=== PATIENT | male | born 1945 | race Hispanic/Latino ===

== ENCOUNTER 2019-09-08 11:59 | Inpatient (IN) | payer OTHER ==
[~2019-09-08] VITALS: Ht 170.2 cm; Wt 88.5 kg
[2019-09-08] MEDS ORDERED: SODIUM CHLORIDE 0.9% 1000ML 1,000 ML IV STA ×3 (12:07→13:04)
[2019-09-08 12:40] LABS: BASOPHILS % 0.1 % (0.0-1.0); HEMATOCRIT 37.1 % (38.2-49.6); HEMOGLOBIN 12.5 g/dL (14.0-18.0); LYMPHOCYTES # (AUTO) 0.7 (1.0-3.2); LYMPHOCYTES % 5.2 % (18.0-39.1); MEAN CORPUSCULAR HEMOGLOBIN 30.1 pg (28-32); MEAN CORPUSCULAR HGB CONC 33.7 g/dL (31-35); MEAN CORPUSCULAR VOLUME 89.4 fL (81-99); MONOCYTES # (AUTO) 0.3 (0.2-0.8); MONOCYTES % 1.9 % (4.4-11.3); NEUTROPHILS # (AUTO) 12.8 (2.1-6.9); NEUTROPHILS % 91.4 % (38.7-80.0); PLATELET COUNT 262 x10e3/uL (140-360); RED BLOOD COUNT 4.15 x10e6/uL (4.3-5.7)
[2019-09-08] MEDS: CEFTRIAXONE SOD 1 GM/NS 50 ML 50 ML IV SCH (12:54)
[2019-09-08 12:56] LABS: INR 0.96; PROTHROMBIN TIME 13.4 seconds (11.9-14.5)
[2019-09-08 12:57] LABS: PARTIAL THROMBOPLASTIN TIME 27.2 seconds (23.8-35.5)
[2019-09-08] MEDS ORDERED: SODIUM CHLORIDE 0.9% 1000ML 0 ML ONE (12:57)
[2019-09-08 13:03] LABS: ALANINE AMINOTRANSFERASE 30 IU/L (0-55); ALBUMIN 2.8 g/dL (3.5-5.0); ALBUMIN/GLOBULIN RATIO 0.6 (0.8-2.0); ALKALINE PHOSPHATASE 61 IU/L (40-150); ANION GAP 20.5 mmol/L (8-16); BLOOD UREA NITROGEN 51 mg/dL (7-26); BUN/CREATININE RATIO 25 (6-25); CALCIUM 9.4 mg/dL (8.4-10.2); CARBON DIOXIDE 19 mmol/L (22-29); CHLORIDE 99 mmol/L (98-107); CREATINE KINASE 60 IU/L (30-200); CREATININE, SERUM 2.04 mg/dL (0.72-1.25); EST GLOMERULAR FILTRATION RATE 32 ML/MIN (60-); POTASSIUM 4.5 mmol/L (3.5-5.1); SODIUM 134 mmol/L (136-145)
[2019-09-08 13:04] LABS: GLUCOSE 422 mg/dL (74-118)
[2019-09-08] MEDS ORDERED: INSULIN REGULAR, HUMAN 100 UNIT/1 ML 3ML VIAL IV ONE (13:15)
[2019-09-08] MEDS: AZITHROMYCIN 500MG/NS 250 ML 250 ML IV SCH (13:20)
--- NOTE | 2019-09-08 14:04 | Diagnostic Imaging Report ---
EXAMINATION: CHEST SINGLE (PORTABLE) INDICATION: COUGH SOB COMPARISON: None FINDINGS: TUBES and LINES: None. LUNGS: Lungs are well inflated. There are patchy bibasilar opacities. No evidence of pulmonary edema. PLEURA: No pleural effusion or pneumothorax. HEART AND MEDIASTINUM: The cardiomediastinal silhouette is unremarkable. There are atherosclerotic calcifications within the aorta. BONES AND SOFT TISSUES: No acute osseous lesion. Soft tissues are unremarkable. UPPER ABDOMEN: No free air under the diaphragm. IMPRESSION: Patchy opacities in the lower lung zones, which may represent pneumonia in the setting of cough. Recommend follow-up chest radiograph in 6-8 weeks to assess for resolution. Signed by: Dr. Barbara Oneal MD on 09/08/2019 2:01 PM
--- NOTE | 2019-09-08 14:25 | NUR ---
repeat glucose 289.
[2019-09-08] MEDS ORDERED: PIOGLITAZONE HC45 MG PO (14:59)
[2019-09-08] MEDS ORDERED: GLIMEPIRIDE2 MG PO (14:59)
[2019-09-08] MEDS ORDERED: LOSARTAN POTAS100 MG PO (14:59)
[2019-09-08] MEDS ORDERED: HYDROXYCHLOROQ200 MG PO (14:59)
[2019-09-08] MEDS ORDERED: OMEPRAZOLE20 MG PO (14:59)
[2019-09-08] MEDS ORDERED: ATORVASTATIN CA10 MG PO (14:59)
[2019-09-08] MEDS ORDERED: ALLOPURINOL100 MG PO (14:59)
[2019-09-08] MEDS ORDERED: FINASTERIDE5 MG PO (14:59)
[2019-09-08] MEDS ORDERED: GABAPENTIN300 MG PO (14:59)
[2019-09-08] MEDS ORDERED: ASPIR 8181 MG PO (14:59)
[2019-09-08] MEDS ORDERED: SODIUM CHLORIDE 0.9% 500ML 500 ML IV ONE (16:15)
[2019-09-08] MEDS ORDERED: SODIUM CHLORIDE 0.9% 1000ML 1,000 ML IV SCH (16:15)
--- NOTE | 2019-09-08 16:28 | Emergency Department Note ---
History of Present Illnes History of Present Illness Chief Complaint: COVID PUI History of Present Illness This is a 74 year old male Per patient and EMS patient has had a cough for 1 week, patient states that he was diagnosed with pharangitis a few days ago by his PCP and given abx, patient states that he has had no improvement in symptoms. 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 Any updates have been documented here. Past Medical History Recent Fever: No Clinical Suspicion of Infectio: No New/Unexplained Change in Ment: No Past Medical History: Hypertension, Diabetes, GERD, Hyperlipedemia Other Medical History: NEUROPATHY GOUT Past Surgical History: None Other Surgery: NONE Social History Smoking Cessation: Never Smoker Counseling Performed: No Alcohol Use: None Any Illegal Drug Use: No TB Exposure/Symptoms: No Physically hurt or threatened: No Family History Family history of heart diseas: No Other Last Tetanus: UNKNOWN Any Pre-Existing Lines (PICC,: No Is patient up to date on immun: No Last Flu: NO Last Pneumovax: NO Review of Systems Review of Systems Constitutional: Reports chills, Reports fever EENTM: Reports no symptoms Cardiovascular: Reports no symptoms Respiratory: Reports cough, Reports dyspnea Gastrointestinal: Reports no symptoms Genitourinary: Reports no symptoms Musculoskeletal: Reports no symptoms Integumentary: Reports no symptoms Neurological: Reports no symptoms Psychological: Reports no symptoms Endocrine: Reports no symptoms Hematological/Lymphatic: Reports no symptoms Physical Exam Related Data Allergies: Coded Allergies: No Known Allergies (Unverified , 09/08/19) Triage Vital Signs Vital Signs Date Time Temp Pulse Resp B/P (MAP) Pulse Ox O2 Delivery O2 Flow Rate FiO2 09/08/19 12:32 98.2 87 24 140/84 93 Vital signs reviewed: Yes (O2 SAT 93% ON RA) Physical Exam CONSTITUTIONAL Constitutional: Present well-developed, Present well-nourished HENT HENT: Present normocephalic, Present atraumatic, Present oropharynx clear/moist, Present nose normal HENT L/R: Present left ext ear normal, Present right ext ear normal EYES Eyes: Reports PERRL, Reports conjunctivae normal NECK Neck: Present ROM normal PULMONARY Pulmonary: Present other (DECR BREATH SOUNDS THOUGHOUT) CARDIOVASCULAR Cardiovascular: Present regular rhythm, Present heart sounds normal, Present capillary refill normal, Present normal rate GASTROINTESTINAL Abdominal: Present soft, Present nontender, Present bowel sounds normal GENITOURINARY Genitourinary: Present exam deferred SKIN Skin: Present warm, Present dry MUSCULOSKELETAL Musculoskeletal: Present ROM normal NEUROLOGICAL Neurological: Present alert, Present oriented x 3, Present no gross motor or sensory deficits PSYCHOLOGICAL Psychological: Present mood/affect normal, Present judgement normal Results Laboratory Result Diagram: 09/08/19 1225 09/08/19 1225 Laboratory Laboratory Tests Test 09/08/19 14:20 09/08/19 14:17 09/08/19 12:25 Lactic Acid Level 2.9 mmol/L (0.5-2.0) 3.9 mmol/L (0.5-2.0) Bedside Glucose 289 mg/dL (70-120) White Blood Count 13.97 x10e3/uL (4.8-10.8) Red Blood Count 4.15 x10e6/uL (4.3-5.7) Hemoglobin 12.5 g/dL (14.0-18.0) Hematocrit 37.1 % (38.2-49.6) Mean Corpuscular Volume 89.4 fL (81-99) Mean Corpuscular Hemoglobin 30.1 pg (28-32) Mean Corpuscular Hemoglobin Concent 33.7 g/dL (31-35) Red Cell Distribution Width 13.0 % (11.7-14.4) Platelet Count 262 x10e3/uL (140-360) Neutrophils (%) (Auto) 91.4 % (38.7-80.0) Lymphocytes (%) (Auto) 5.2 % (18.0-39.1) Monocytes (%) (Auto) 1.9 % (4.4-11.3) Eosinophils (%) (Auto) 0.0 % (0.0-6.0) Basophils (%) (Auto) 0.1 % (0.0-1.0) Neutrophils # (Auto) 12.8 (2.1-6.9) Lymphocytes # (Auto) 0.7 (1.0-3.2) Monocytes # (Auto) 0.3 (0.2-0.8) Eosinophils # (Auto) 0.0 (0.0-0.4) Basophils # (Auto) 0.0 (0.0-0.1) Absolute Immature Granulocyte (auto 0.19 x10e3/uL (0-0.1) Prothrombin Time 13.4 seconds (11.9-14.5) Prothromb Time International Ratio 0.96 Activated Partial Thromboplast Time 27.2 seconds (23.8-35.5) Sodium Level 134 mmol/L (136-145) Potassium Level 4.5 mmol/L (3.5-5.1) Chloride Level 99 mmol/L (98-107) Carbon Dioxide Level 19 mmol/L (22-29) Anion Gap 20.5 mmol/L (8-16) Blood Urea Nitrogen 51 mg/dL (7-26) Creatinine 2.04 mg/dL (0.72-1.25) Estimat Glomerular Filtration Rate 32 ML/MIN (60-) BUN/Creatinine Ratio 25 (6-25) Glucose Level 422 mg/dL (74-118) Calcium Level 9.4 mg/dL (8.4-10.2) Total Bilirubin 0.5 mg/dL (0.2-1.2) Aspartate Amino Transf (AST/SGOT) 31 IU/L (5-34) Alanine Aminotransferase (ALT/SGPT) 30 IU/L (0-55) Alkaline Phosphatase 61 IU/L (40-150) Creatine Kinase 60 IU/L (30-200) Creatine Kinase MB 0.90 ng/mL (0-5.0) Troponin I < 0.001 ng/mL (0-0.300) B-Type Natriuretic Peptide 91.0 pg/mL (0-100) Total Protein 7.7 g/dL (6.5-8.1) Albumin 2.8 g/dL (3.5-5.0) Globulin 4.9 g/dL (2.3-3.5) Albumin/Globulin Ratio 0.6 (0.8-2.0) Lab results reviewed: Yes Imaging Imaging results reviewed: Yes Impressions Procedure: [id number] DX/CHEST SINGLE (PORTABLE) Exam Date: 09/08/19 Exam Time: 1300 REPORT STATUS: Signed EXAMINATION: CHEST SINGLE (PORTABLE) INDICATION: COUGH SOB COMPARISON: None FINDINGS: TUBES and LINES: None. LUNGS: Lungs are well inflated. There are patchy bibasilar opacities. No evidence of pulmonary edema. PLEURA: No pleural effusion or pneumothorax. HEART AND MEDIASTINUM: The cardiomediastinal silhouette is unremarkable. There are atherosclerotic calcifications within the aorta. BONES AND SOFT TISSUES: No acute osseous lesion. Soft tissues are unremarkable. UPPER ABDOMEN: No free air under the diaphragm. IMPRESSION: Patchy opacities in the lower lung zones, which may represent pneumonia in the setting of cough. Recommend follow-up chest radiograph in 6-8 weeks to assess for resolution. Signed by: Dr. Barbara Oneal MD on 09/08/2019 2:01 PM Procedures 12 Lead ECG Interpretation ECG Interpretation : ECG: ECG 1 Materials Specialist: Interpreted by ED physician Date: Sep 08, 2019 Time: 12:15 Rhythm: sinus rhythm Rate: normal (86) QRS axis: normal ST segments normal: Yes T waves normal: Yes Clinical Impression: normal ECG ABG Interpretation ABG Results: ABG 1 (pH 7.401, pCO2 30, pO2 91 on 3L NC, HCO3 18.5) Interpretation: metabolic acidosis (and respiratory alkalosis) Critical Care Time Total Critical Care Time (min): 35 Critical care time exclusive o: separately billable procedures Critcal care necessary due to: metabolic failure, sepsis Critcal care time spent by me: discussion w consultants, evaluation patient response to tx, examination of patient, order/perform tx or interventions, order/review laboratory studies, order/review radiographic studies, re- evaluation of patient condition Assessment & Plan Medical Decision Making MDM CHECK CBC, CHEM'S, ECG, CARDIACS, BNP, UA/CX, BLOOD CX'S, LACTIC, COVID SWAB - R/O SEPSIS, PNEUMONIA, COVID, STEMI/NSTEMI, ELECTROLYTE ABNL Reassessment Reassessment INITIAL LACTIC AT 1305 = 3.9, SEVERE SEPSIS WITH PULMONARY SOURCE Patient presented during the COVID-19 virus pandemic and has a clinical picture consistent with a COVID-19 source for sepsis. Thus, patient was treated for suspected viral sepsis rather than bacterial sepsis although I did give Rocephin/Azithromycin initially. Given the potential for ARDS and present suggestions of early data from COVID treatment in other areas, fluids were given sparingly and the SEP-1 guidelines were deviated from. For consideration of other sources, blood and urine cultures, lactic acid and antibiotics were ordered. Will continue to monitor blood pressure and adjust fluid resuscitation accordingly. I spoke with Dr Henry for admission. Dr Leyva and [facility] Assessment & Plan Final Impression: (1) Sepsis (2) Pneumonia due to COVID-19 virus (3) Hyperglycemia Depart Disposition: ADMITTED Last Vital Signs Date Time Temp Pulse Resp B/P (MAP) Pulse Ox O2 Delivery O2 Flow Rate FiO2 09/08/19 16:01 68 30 154/79 98 09/08/19 12:37 98.5 Home Meds Reported Medications Hydroxychloroquine Sulfate (HYDROXYCHLOROQUINE SULFATE) 200 Mg Tablet, 200 MG PO DAILY 09/08/19 Atorvastatin Calcium (ATORVASTATIN CALCIUM) 10 Mg Tablet, 10 MG PO 2100, #30 TAB 09/08/19 Aspirin (ASPIR 81) 81 Mg Tablet.dr, 81 MG PO DAILY 09/08/19 Losartan Potassium (LOSARTAN POTASSIUM) 100 Mg Tablet, 100 MG PO DAILY, TAB 09/08/19 Omeprazole (OMEPRAZOLE) 20 Mg Capsule.dr, 20 MG PO DAILY 09/08/19 Pioglitazone Hcl (PIOGLITAZONE HCL) 45 Mg Tablet, 45 MG PO DAILY, #30 TAB 09/08/19 Finasteride (FINASTERIDE) 5 Mg Tablet, 5 MG PO DAILY, #30 TAB 09/08/19 Allopurinol (ALLOPURINOL) 100 Mg Tablet, 100 MG PO DAILY, #30 TAB 09/08/19 Glimepiride (GLIMEPIRIDE) 2 Mg Tablet, 4 MG PO, TAB 09/08/19 Gabapentin (GABAPENTIN) 300 Mg Capsule, 300 MG PO BID, #60 CAP 09/08/19 Medications in the ED Sodium Chloride 1,000 ml @ 0 mls/hr Q0M STAT IV Last administered on 09/08/19at 12:45; Admin Dose 999 MLS/HR; Start 09/08/19 at 12:07; Stop 09/08/19 at 12:12; Status DC Ceftriaxone Sodium 50 ml @ 100 mls/hr Q24H IV Last administered on 09/08/19at 12:54; Admin Dose 100 MLS/HR; Start 09/08/19 at 12:15; Stop 09/15/19 at 12:14 Azithromycin 250 ml @ 200 mls/hr DAILY IV Last administered on 09/08/19at 13:20; Admin Dose 200 MLS/HR; Start 09/08/19 at 12:15; Stop 09/15/19 at 12:14 Sodium Chloride 0 ml @ ud STK-MED ONCE .ROUTE ; Start 09/08/19 at 12:57; Stop 09/08/19 at 12:51; Status DC Sodium Chloride 1,000 ml @ 0 mls/hr Q0M STAT IV Last administered on 09/08/19at 13:35; Admin Dose 999 MLS/HR; Start 09/08/19 at 13:04; Stop 09/08/19 at 13:06; Status DC Insulin Human Regular 10 unit ONCE ONCE IV Last administered on 09/08/19at 13:39; Admin Dose 10 UNIT; Start 09/08/19 at 13:15; Stop 09/08/19 at 13:16; Status DC Sodium Chloride 1,000 ml @ 0 mls/hr Q0M STAT IV Last administered on 09/08/19at 13:37; Admin Dose 999 MLS/HR; Start 09/08/19 at 13:04; Stop 09/08/19 at 13:06; Status DC OJ BORJAS MD Sep 08, 2019 16:28
[2019-09-08 16:37] LABS: CLARITY,URINE CLEAR (CLEAR); COLOR,URINE YELLOW (YELLOW); LEUKOCYTE ESTERASE ,URINE NEGATIVE (NEGATIVE); NITRITE,URINE NEGATIVE (NEGATIVE); PROTEIN,URINE DIPSTICK 1+ (NEGATIVE)
[2019-09-08 16:38] LABS: BILIRUBIN,URINE NEGATIVE (NEGATIVE); KETONES,URINE NEGATIVE (NEGATIVE); URINE UROBILINOGEN 0.2 mg/dL (0.2 - 1)
[2019-09-08 16:49] LABS: BACTERIA,URINE FEW /HPF; EPITHELIAL CELLS,URINE FEW /LPF
[2019-09-08 17:07] LABS: ABG HCO3 19 mmol/L (22-26); ABG PCO2 30 mmHg (35-45); ABG PO2 91 mmHg (80-105)
[2019-09-08] MEDS ORDERED: ALBUTEROL SULFATE HFA 8GM INHALATION AEROSOL INH PRN (17:15)
[2019-09-08] MEDS ORDERED: ONDANSETRON HCL INJ 2MG/ML 2ML 2 MG/ML VIAL IV PRN (17:15)
[2019-09-08] MEDS ORDERED: DEXTROSE 50% SYRINGE 50 ML IV PRN (17:15)
--- NOTE | 2019-09-08 18:30 | NUR ---
ARRIVED TO UNIT AT APPROXIMATELY 181. AAOX3. ACYANOTIC. RESTING IN BED. COUGHING SPELL NOTED WITH MODERATE AMOUNT OF CLEAR SPUTUM. CALL LIGHT IN REACH. SIDE RAILS UP X2. BED LOW AND LOCKED.
[2019-09-08 18:47] VITALS: BP 123/70
--- NOTE | 2019-09-08 19:45 | Consultation ---
DATE OF CONSULTATION: Pulmonary Critical Care Consultation CHIEF COMPLAINT: Cough and malaise. HISTORY OF PRESENT ILLNESS: The patient is a 74-year-old man. He has a history of xpy-rpikzcr-ardhhdkod diabetes and hypertension. He denies any prior respiratory problems. He does not have any prior heart disease. He reports malaise for the past 8 days. He also notes cough. He has shortness of breath when he coughs. He does not complain of any fevers. He had some loose stools, but does not have diarrhea. He has not been eating well. He came to the emergency department and was found to have bilateral infiltrates on his chest x-ray, suggestive of possible viral pneumonia. He also had an elevated glucose of 422 along with an elevated creatinine and a mixed respiratory alkalosis and anion gap acidosis. He received fluids and has noticed some improvement. PAST SURGICAL HISTORY: Noncontributory. PAST MEDICAL HISTORY: 1. Lqs-cvwncks-gseyoycyp diabetes. 2. Hypertension. SOCIAL HISTORY: The patient quit smoking many years ago. He quit drinking many years ago. ALLERGIES: THERE ARE NO KNOWN DRUG ALLERGIES. FAMILY HISTORY: Noncontributory. REVIEW OF SYSTEMS: He denies fevers. He does not have headache. He has no neck pain. He does report cough. He has some dyspnea especially when he coughs. He does not complain of chest pain. He did have some loose stools. He has no vomiting. PHYSICAL EXAMINATION: VITAL SIGNS: The patient is afebrile. The blood pressure is 123/70 and saturation is 93% on 4 L. HEENT: Shows no facial swelling or erythema. CARDIAC: Reveals regular rate and rhythm with normal S1 and S2. LUNGS: Auscultation of lungs reveals crackles at the bases. There is no wheezing. ABDOMEN: Soft and nontender. There is no rebound or guarding. EXTREMITIES: Shows no leg edema or calf tenderness. There is no cyanosis or clubbing. SKIN: Shows no rashes. NEUROLOGICAL: Shows no focal abnormalities. LABORATORY DATA: The BUN to creatinine ratio is 51 to 2.04, and the carbon dioxide is 19. Sodium is 134. Lactic acid was initially 3.9, but has improved to 2.1 with fluids. Albumin is 2.9. White blood cell count is 13.9 and the hemoglobin is 12.5. The platelet count is 262. Blood gas is 7.4, 30, 91, and 19. RADIOGRAPHIC DATA: Chest x-ray shows bilateral infiltrates, suggestive of viral pneumonia. IMPRESSION: 1. Viral pneumonia and COVID-19 infection. 2. Mixed respiratory alkalosis and metabolic acidosis. 3. Hyperglycemia. 4. Acute kidney injury. 5. Hypertension. PLAN: 1. Continue judicious use of IV fluids. 2. Repeat electrolytes this evening. 3. Antibiotics. 4. Lovenox. 5. Robitussin with codeine. 6. Hold off on dexamethasone for now because of the hyperglycemia and acidosis. 7. Case discussed with nursing, ER staff, and the patient. Barrett Martinez MD [facility]/MOD[facility] /[id number]
[2019-09-08 20:00] VITALS: BP 169/81
--- NOTE | 2019-09-08 20:30 | NUR ---
patient is a new admit. patient is awake and talking and resting in the bed. telemetry is attached. continues on O2 via the nasal cannula. denies pain or discomfort. bed is in lowest position and call light is within reach. will continue to monitor patient.
[2019-09-08] MEDS ORDERED: ATORVASTATIN 10 MG TAB PO SCH (21:00)
[2019-09-08] MEDS: INSULIN LISPRO 100 UNIT/1 ML 3ML VIAL SQ SCH (21:00)
[2019-09-08] MEDS: INSULIN GLARGINE 100 UNITS/ML VIAL SQ SCH (22:00)
[2019-09-08] MEDS: FAMOTIDINE 20 MG/2 ML VIAL IV SCH (22:26)
[2019-09-08] MEDS: ENOXAPARIN SOD INJ 40 MG/0.4 ML SYR SC SCH (22:26)
[2019-09-08 22:29] VITALS: BP 169/81
[2019-09-08 22:33] VITALS: BP 169/81
[2019-09-08] MEDS: GUAIFENESIN/CODEINE 10 ML CUP PO PRN (22:42)
--- NOTE | 2019-09-08 23:09 | NUR ---
received critical lab from pharmacy. patients lactic acids are 3.3. patients blood pressure is 192/86. Attending MD notified. No new orders received. will continue to monitor patient.
[2019-09-08] MEDS: GABAPENTIN 300 MG CAP PO SCH (23:23)
[2019-09-09] VITALS (7 sets, daily range): BP systolic 112–179; BP diastolic 70–82
[2019-09-09] MEDS: GABAPENTIN 300 MG CAP PO SCH ×2 (05:01→14:24)
[2019-09-09 05:07] LABS: BASOPHILS % 0.2 % (0.0-1.0); HEMATOCRIT 33.8 % (38.2-49.6); HEMOGLOBIN 11.1 g/dL (14.0-18.0); LYMPHOCYTES # (AUTO) 0.9 (1.0-3.2); LYMPHOCYTES % 7.4 % (18.0-39.1); MEAN CORPUSCULAR HEMOGLOBIN 29.5 pg (28-32); MEAN CORPUSCULAR HGB CONC 32.8 g/dL (31-35); MEAN CORPUSCULAR VOLUME 89.9 fL (81-99); MONOCYTES # (AUTO) 0.2 (0.2-0.8); MONOCYTES % 1.7 % (4.4-11.3); NEUTROPHILS # (AUTO) 10.6 (2.1-6.9); NEUTROPHILS % 88.9 % (38.7-80.0); PLATELET COUNT 227 x10e3/uL (140-360); RED BLOOD COUNT 3.76 x10e6/uL (4.3-5.7)
[2019-09-09 05:31] LABS: ALBUMIN 2.3 g/dL (3.5-5.0); ALBUMIN/GLOBULIN RATIO 0.5 (0.8-2.0); ANION GAP 14.1 mmol/L (8-16); CALCIUM 8.5 mg/dL (8.4-10.2); CREATININE, SERUM 1.43 mg/dL (0.72-1.25); POTASSIUM 4.1 mmol/L (3.5-5.1)
[2019-09-09 05:43] LABS: CREATINE KINASE 66 IU/L (30-200)
[2019-09-09] MEDS: INSULIN LISPRO 100 UNIT/1 ML 3ML VIAL SQ SCH ×7 (07:30→21:31)
--- NOTE | 2019-09-09 08:00 | NUR ---
pt desaturated to 77%, pt is on oxygen via nasal cannula at 4 liters. applied non-rebreather and pt's oxygen sat is at 100%
[2019-09-09] MEDS ORDERED: HYDRALAZINE HCL 20 MG/ML VIAL IV PRN (08:45)
[2019-09-09] MEDS ORDERED: PANTOPRAZOLE SOD 40 MG TABEC PO SCH (09:00)
[2019-09-09] MEDS ORDERED: GABAPENTIN 300 MG CAP PO SCH (09:00)
[2019-09-09] MEDS ORDERED: LOSARTAN POTASSIUM 100 MG TAB PO SCH (09:00)
[2019-09-09] MEDS ORDERED: HYDROXYCHLOROQUINE SULFATE 200 MG TAB PO SCH (09:00)
[2019-09-09] MEDS: GUAIFENESIN/CODEINE 10 ML CUP PO PRN ×3 (09:16→21:08)
[2019-09-09] MEDS: AMLODIPINE BESYLATE 10 MG TAB PO SCH (09:16)
[2019-09-09] MEDS: ASPIRIN 81 MG CHEW TAB PO SCH (09:16)
[2019-09-09] MEDS: AZITHROMYCIN 500MG/NS 250 ML 250 ML IV SCH (09:16)
[2019-09-09] MEDS: FAMOTIDINE 20 MG/2 ML VIAL IV SCH ×2 (09:16→21:30)
[2019-09-09] MEDS: ALLOPURINOL 100 MG TAB PO SCH (09:17)
[2019-09-09] MEDS: ENOXAPARIN SOD INJ 40 MG/0.4 ML SYR SC SCH ×2 (09:17→21:30)
[2019-09-09] MEDS: FINASTERIDE 5 MG TAB PO SCH (09:17)
[2019-09-09] MEDS ORDERED: SODIUM CHLORIDE 0.9% 250ML 250 ML ONE (11:42)
[2019-09-09] MEDS: CEFTRIAXONE SOD 1 GM/NS 50 ML 50 ML IV SCH (11:44)
--- NOTE | 2019-09-09 12:00 | NUR ---
ATTEMPTED 3 TIMES TO GET BLOOD FOR CARDIAC LABS. SECOND NURSE ATTEMPTED AND WAS NOT ABLE TO OBTAIN ENOUGH BLOOD.
[2019-09-09] MEDS: DEXAMETHASONE PHOS 4MG/ML 5ML MULTIDOSE VIAL IV SCH (12:32)
--- NOTE | 2019-09-09 12:38 | Consultation ---
DATE OF CONSULTATION: HISTORY OF PRESENT ILLNESS: Mr. Contreras is a 74-year-old gentleman, who comes in with cough, not feeling well. He has been sick for a few days. He does have history of diabetes mellitus. The patient apparently was diagnosed few days ago with COVID-19, but he is just not feeling well. He came in with shortness of breath. In the emergency room, he was evaluated. He was found to have an acute renal failure. His sodium 138, potassium 4.1 with a creatinine of 1.43. Lactic acid was 3.3 on admission. The patient is being admitted. He is on Plaquenil, Lovenox, Proscar, Norvasc, Pepcid, azithromycin, Neurontin, ceftriaxone, insulin, dextrose, and Zofran. The patient is currently lying in bed comfortable. PHYSICAL EXAMINATION: GENERAL: He is currently alert and oriented. Does not seem to be in acute distress. VITAL SIGNS: Stable, currently afebrile. HEENT: Not icteric. NECK: Supple. CHEST: Clear. HEART: S1 and S2. No S3, S4, or murmur. ABDOMEN: Soft. IMPRESSION: 1. COVID-19. 2. Superimposed bacterial pneumonia. 3. Diabetes mellitus. Continue with azithromycin for 3 days, Rocephin 5 days. He is currently on allopurinol, atorvastatin, amlodipine, Lovenox. I am not so sure why he is on hydroxychloroquine, would like to stop it for now. The patient is currently on non- rebreather. We will offer him remdesivir. He is aware that it is an investigational drug. Fact sheet was given to the patient. We will follow. MD DARIN Harrison/HOWARD /[id number]
[2019-09-09] MEDS ORDERED: REMDESIVIR 200MG/NS 100ML 200 MG IV ONE (14:00)
--- NOTE | 2019-09-09 15:34 | History and Physical ---
PRIMARY CARE PHYSICIAN: Dr. Jasiel Mcgee. CONSULTANTS: 1. Dr. Del Leyva. 2. Dr. Ruth Mott. CHIEF COMPLAINT: COVID-19 pneumonia. HISTORY OF PRESENT ILLNESS: The patient is a 74-year-old male with diabetes type 2, hypertension, presented to the emergency room with increasing shortness of breath. The patient has also increasing cough and fever as well. In the emergency room, the patient has complained of generalized body ache and pain. The patient stated that he has been coughing for one week. He was diagnosed with pharyngitis by his primary care physician and was given antibiotics, but he did not improve. The patient came to the hospital for evaluation. Here, the patient found to have COVID-19 pneumonia. Chest x-ray showed classic opacity of the bilateral lower lung lobe area. The patient is admitted for isolation and treatment. He did receive Decadron 10 mg IV one time and continue with IV q.6 hours. The patient is currently on non-rebreather. He is otherwise stable. PAST MEDICAL HISTORY: Hypertension, obesity, diabetes type 2, reflux, dyslipidemia, diabetic neuropathy, and gout. PAST SURGICAL HISTORY: Noncontributory. SOCIAL HISTORY: The patient lives with his family. He quit smoking many years ago. He quit drinking many years ago as well. No recreational drugs. ALLERGIES: NO KNOWN ALLERGIES. HOME MEDICATIONS: The patient is on, 1. Allopurinol. 2. Aspirin. 3. Lipitor. 4. Finasteride. 5. Gabapentin. 6. Amaryl. 7. Plaquenil. 8. Losartan. 9. Omeprazole. 10. Actos. PHYSICAL EXAMINATION: VITAL SIGNS: Temperature is 98, blood pressure 177/76, pulse rate is 63, and respirations 18. GENERAL: The patient is not in acute distress. He is on non-rebreather. He seems to be comfortable with cough. HEENT: Normocephalic and atraumatic. Anicteric. NECK: Supple grossly. There is no JVD. PULMONARY: Bilateral coarse at the bases. Upper airways are clear. He is on non-rebreather. Diminished breath sounds bilateral lung upper and lower lobes. CARDIOVASCULAR: Regular rate and rhythm. ABDOMEN: Obese. EXTREMITIES: No cyanosis or edema. NEUROLOGIC: No gross focal deficit. Moving all extremities, communicating. LABORATORY DATA: Serologies: COVID-19 PCR detected. Chemistry: Sodium is 134, potassium 4.5, chloride 99, bicarb is 19, BUN is 41, creatinine 1.5, and glucose 141, upon admission it was 422. Lactic acid is 2.9, 2.1 and 3.3 respectively. Fingerstick glucose pending this morning. Albumin is 2.3. WBC is 13.9, hemoglobin 12.5, hematocrit 37, and platelets 262. Urinalysis is clean. IMAGING: Chest x-ray showed patchy opacity in the lower lung zones. IMPRESSION: 1. Coronavirus disease-19 pneumonia, bilateral basilar infiltrate opacity. 2. Acute hypoxia secondary to coronavirus disease-19. 3. Baseline diabetes type 2. 4. Dyslipidemia. 5. Reflux. 6. Enlarged prostate. 7. Obesity. PLAN: Continue with protocol. Currently, the patient is on Decadron 6 mg IV daily. He is on azithromycin and Rocephin. He did receive multiple boluses of IV fluids in the emergency room. Blood pressures are elevated. Start the patient on Norvasc 10 mg daily. Hydralazine as needed. He is on aspirin, Lovenox 40 mg subcu q.12 hours, and Pepcid. Home medication, gabapentin decrease the dosing, finasteride, Humalog insulin sliding scale coverage. He will take also lispro 6 units before meal and Lantus 40 units at night. The patient was seen by critical care, Dr. Kal Leyva. Dr. Kamlesh Martinez covering for Dr. Leyva. Consultation with Dr. Mott. We will continue to monitor the patient closely at this time. He does have an inhaler if needed. The patient will be started anti-cough medication. He has Tessalluda Perles along with Javi SU as well. The patient's condition is stable, but guarding at this time. MD HELEN Juan/HOWARD /[id number]
[2019-09-09] MEDS ORDERED: ENOXAPARIN SOD INJ 40 MG/0.4 ML SYR SC SCH (17:00)
--- NOTE | 2019-09-09 17:59 | Progress Note ---
DATE: SUBJECTIVE: The patient had some desaturations this morning and had to be increased to 100% non-rebreather. He was started on remdesivir. PHYSICAL EXAMINATION: VITAL SIGNS: Blood pressure is 141/79 and pulse is 73, saturation 100%. HEENT: Shows no facial swelling or erythema. CARDIAC: Reveals regular rate and rhythm with normal S1, S2. LUNGS: Auscultation of lungs shows clear breath sounds bilaterally. There is no wheezing. ABDOMEN: Soft and nontender. There is no rebound or guarding. EXTREMITIES: Shows no leg edema or calf tenderness. There is no cyanosis or clubbing. SKIN: Shows no rashes. NEUROLOGICAL: Shows no focal abnormalities. LABORATORY DATA: White blood cell count is 11.9 and hemoglobin is 11.1. The platelet count is 227. The BUN to creatinine ratio is 41 to 1.43. The BUN to creatinine ratio is otherwise normal. The carbon dioxide is 19. The sodium is 138. The albumin is 2.3. IMPRESSION: 1. Acute respiratory failure. 2. Viral pneumonia and COVID-19 infection. 3. Diabetes. 4. Acute kidney injury. 5. Hypertension. PLAN: 1. The patient is now started on remdesivir. 2. Continue insulin. 3. Continue antibiotics. 4. Lovenox. 5. Dexamethasone. Barrett Martinez MD [facility] /[id number]
[2019-09-09] MEDS: INSULIN GLARGINE 100 UNITS/ML VIAL SQ SCH (21:31)
[2019-09-09] MEDS: GABAPENTIN 100 MG CAP PO SCH (22:52)
[2019-09-10] VITALS (7 sets, daily range): BP systolic 109–139; BP diastolic 56–82
[2019-09-10] MEDS: GUAIFENESIN/CODEINE 10 ML CUP PO PRN ×5 (01:47→22:45)
[2019-09-10] MEDS: GABAPENTIN 100 MG CAP PO SCH ×3 (05:50→22:45)
--- NOTE | 2019-09-10 06:59 | NUR ---
REPORT GIVEN TO DAYSHIFT NURSE. RESTING IN BED. NO SIGNS IV INFILTRATION. BED LOCKED AND IN LOW POSITION. CALL LIGHT WITHIN REACH.
[2019-09-10] MEDS: INSULIN LISPRO 100 UNIT/1 ML 3ML VIAL SQ SCH ×7 (07:30→20:27)
[2019-09-10] MEDS: ASPIRIN 81 MG CHEW TAB PO SCH (08:06)
[2019-09-10] MEDS: ALLOPURINOL 100 MG TAB PO SCH (08:06)
[2019-09-10] MEDS: FAMOTIDINE 20 MG/2 ML VIAL IV SCH ×2 (08:06→20:26)
[2019-09-10] MEDS: AMLODIPINE BESYLATE 10 MG TAB PO SCH (08:06)
[2019-09-10] MEDS: ENOXAPARIN SOD INJ 40 MG/0.4 ML SYR SC SCH ×2 (08:06→20:26)
[2019-09-10] MEDS: AZITHROMYCIN 500MG/NS 250 ML 250 ML IV SCH (08:06)
[2019-09-10] MEDS: FINASTERIDE 5 MG TAB PO SCH (08:06)
[2019-09-10] MEDS: DEXAMETHASONE PHOS 4MG/ML 5ML MULTIDOSE VIAL IV SCH (11:48)
[2019-09-10 12:28] LABS: BASOPHILS % 0.1 % (0.0-1.0); HEMOGLOBIN 11.9 g/dL (14.0-18.0); LYMPHOCYTES # (AUTO) 1.2 (1.0-3.2); LYMPHOCYTES % 8.5 % (18.0-39.1); MEAN CORPUSCULAR HEMOGLOBIN 30.4 pg (28-32); MEAN CORPUSCULAR VOLUME 89.3 fL (81-99); MONOCYTES # (AUTO) 0.3 (0.2-0.8); NEUTROPHILS % 88.2 % (38.7-80.0); PLATELET COUNT 215 x10e3/uL (140-360); RED BLOOD COUNT 3.92 x10e6/uL (4.3-5.7); RED CELL DISTRIBUTION WIDTH 13.2 % (11.7-14.4)
[2019-09-10 12:43] LABS: ANION GAP 12.9 mmol/L (8-16); CALCIUM 8.5 mg/dL (8.4-10.2); CREATININE, SERUM 1.52 mg/dL (0.72-1.25); POTASSIUM 3.9 mmol/L (3.5-5.1)
[2019-09-10] MEDS: CEFTRIAXONE SOD 1 GM/NS 50 ML 50 ML IV SCH (13:03)
[2019-09-10] MEDS: REMDESIVIR 100MG/NS 100ML 100 MG IV SCH (15:35)
--- NOTE | 2019-09-10 15:50 | Progress Note ---
DATE: SUBJECTIVE: The patient is seen and evaluated, available labs and notes reviewed. Discussed with the nurse. No new events. REVIEW OF SYSTEMS: Remains on non-rebreather, saturating at 95-100%. Clinically, no acute distress. Still complaining of shortness of breath, but he feels better with current non-rebreather type of oxygen. No nausea, vomiting, or chills. MEDICATIONS: Medication is reviewed. From ID point of view, the patient is on Rocephin, dexamethasone, and Zithromax. LABORATORY STUDIES: White count of 13.61, hemoglobin 11.9, and platelet 215. Sodium 133, potassium 3.9, and creatinine 1.52. Serology: Coronavirus disease PCR 2019, positive on 09/08/2019. Microbiology; blood culture, negative 48 hours. Urine culture, negative 48 hours. RADIOLOGY STUDIES: No new radiology study is available. PHYSICAL EXAMINATION: VITAL SIGNS: Temperature 97.5, pulse 73, respirations 24, and blood pressure 121/66. GENERAL: Alert and oriented, no acute distress. Obese with a BMI of 39.2. CV: S1-S2. CHEST: Equal expansion. Decreased breath sounds. No acute distress. ABDOMEN: Soft. No tender. HEENT: Moist. On non-rebreather. EXTREMITIES: Weak. ASSESSMENT AND PLAN: 1. Coronavirus disease-19. 2. Superimposed bacterial pneumonia. 3. Diabetes. 4. Obesity. 5. Neuropathy. Continue with the medications as mentioned above. Continue with the non-rebreather. Monitor the patient clinically. Follow with the labs. Discussed with Dr. Mott in details. Please refer to chart for more information. Dictated by Enrico Pearce PA-C (Al) Ruth Mott MD /MODL /[id number]
--- NOTE | 2019-09-10 17:05 | Progress Note ---
DATE: SUBJECTIVE: The patient is still requiring a non-rebreather. He is not complaining of dyspnea. He still has some cough. He has decreased appetite. His saturation is 95%. OBJECTIVE: HEENT: Shows no facial swelling or erythema. CARDIAC: Reveals regular rate and rhythm with normal S1, S2. LUNGS: Auscultation of lungs reveals crackles at the bases. There is no wheezing. ABDOMEN: Soft, nontender. There is no rebound or guarding. EXTREMITIES: Shows no leg edema or calf tenderness. There is no cyanosis, clubbing. SKIN: Shows no rashes. NEUROLOGICAL: Shows no focal abnormalities. LABORATORY DATA: White blood cell count is 13.6 and hemoglobin is 11.9. The platelet count is 215. BUN to creatinine ratio is 45 to 1.52. Other electrolytes are within normal limits. Albumin is 2.3. IMPRESSION: 1. Acute respiratory failure. 2. Viral pneumonia COVID-19 infection. 3. Acute kidney injury. 4. Diabetes. 5. Hypertension. PLAN: 1. Continue remdesivir. 2. Insulin as needed. 3. Complete antibiotics. 4. Dexamethasone. 5. Repeat chest x-ray tomorrow. 6. Repeat BUN, creatinine, and electrolytes tomorrow. Barrett Martinez MD [facility] /[id number]
--- NOTE | 2019-09-10 18:19 | Diagnostic Imaging Report ---
EXAMINATION: CHEST SINGLE (PORTABLE) INDICATION: ^resp failure ^[id number] ^1715 COMPARISON: 09/08/19. FINDINGS: TUBES and LINES: None. LUNGS: Increased multifocal patchy density particularly in the lower lobes. Diffuse prominence of the pulmonary vasculature. PLEURA: No pleural effusion or pneumothorax. HEART AND MEDIASTINUM: Cardiac size is mildly enlarged. There are atherosclerotic calcifications within the aorta. BONES AND SOFT TISSUES: No acute osseous lesion. Soft tissues are unremarkable. UPPER ABDOMEN: No free air under the diaphragm. IMPRESSION: Interval increase in patchy density bilaterally, which may represent pulmonary edema or multifocal infection in the proper clinical setting. Bilateral pulmonary venous congestion. Signed by: Dr. Daniel Hutton M.D. on 09/10/2019 6:15 PM
[2019-09-10] MEDS: INSULIN GLARGINE 100 UNITS/ML VIAL SQ SCH (20:27)
[2019-09-11] VITALS (8 sets, daily range): BP systolic 116–145; BP diastolic 66–76
[2019-09-11] MEDS: GUAIFENESIN/CODEINE 10 ML CUP PO PRN ×3 (02:40→21:53)
[2019-09-11 05:56] LABS: BASOPHILS % 0.1 % (0.0-1.0); HEMATOCRIT 39.3 % (38.2-49.6); HEMOGLOBIN 13.1 g/dL (14.0-18.0); LYMPHOCYTES # (AUTO) 1.3 (1.0-3.2); LYMPHOCYTES % 9.5 % (18.0-39.1); MEAN CORPUSCULAR HEMOGLOBIN 29.6 pg (28-32); MEAN CORPUSCULAR HGB CONC 33.3 g/dL (31-35); MEAN CORPUSCULAR VOLUME 88.9 fL (81-99); MONOCYTES # (AUTO) 0.2 (0.2-0.8); MONOCYTES % 1.6 % (4.4-11.3); NEUTROPHILS % 87.7 % (38.7-80.0); PLATELET COUNT 250 x10e3/uL (140-360); RED BLOOD COUNT 4.42 x10e6/uL (4.3-5.7); RED CELL DISTRIBUTION WIDTH 12.8 % (11.7-14.4)
[2019-09-11 06:07] LABS: ALBUMIN 2.4 g/dL (3.5-5.0); ALBUMIN/GLOBULIN RATIO 0.5 (0.8-2.0); ANION GAP 15.5 mmol/L (8-16); CALCIUM 9.2 mg/dL (8.4-10.2); CREATININE, SERUM 1.53 mg/dL (0.72-1.25); POTASSIUM 4.5 mmol/L (3.5-5.1)
[2019-09-11] MEDS: GABAPENTIN 100 MG CAP PO SCH ×3 (06:42→22:00)
--- NOTE | 2019-09-11 07:06 | NUR ---
CALLED Daniel [facility] REGARDING SPO2 LEVELS. LEFT MESSAGE. AWAITING CALL BACK.
--- NOTE | 2019-09-11 07:25 | NUR ---
REPORT GIVEN TO DAYSHIFT NURSE. AAOX3. NO SIGNS IV INFILTRATION. BED LOCKED AND IN LOW POSITION. CALL LIGHT WITHIN REACH. BED ALARM ACTIVATED.
--- NOTE | 2019-09-11 07:30 | NUR ---
made aware via pathology laboratory technologist of patient's o2 saturation overnight. Dr. Martinez notified and seeing patient.
[2019-09-11] MEDS ORDERED: FUROSEMIDE INJ 10 MG/ML 2 ML VIAL IV SCH (08:45)
--- NOTE | 2019-09-11 09:22 | Progress Note ---
DATE: SUBJECTIVE: The patient had some desaturations during the night into the 80s. He is now saturating in the low 90s percent. He feels better. He is having less dyspnea. He has some cough. PHYSICAL EXAMINATION: VITAL SIGNS: The blood pressure is 134/76 and the pulse is 78. Respiratory rate is 17 and saturation is 93%. HEENT: Shows no facial swelling or erythema. CARDIAC: Reveals regular rate and rhythm with normal S1, S2. LUNGS: Auscultation of lungs reveals crackles at the bases. There is no wheezing. ABDOMEN: Soft, nontender. There is no rebound or guarding. EXTREMITIES: Show no leg edema or calf tenderness. There is no cyanosis, clubbing. SKIN: Shows no rashes. NEUROLOGICAL: Shows no focal abnormalities. LABORATORY DATA: White blood cell count is 13.6 and hemoglobin is 13.1. The platelet count is 250. The BUN to creatinine ratio is 49 to 1.53. The carbon dioxide is 20 and albumin is 2.4. IMPRESSION: 1. Acute respiratory failure. 2. Viral pneumonia and COVID-19 infection. 3. Diabetes. 4. Acute kidney injury. 5. Peripheral vascular disease. 6. Hypertension. PLAN: 1. Continue oxygen. 2. Continue remdesivir. 3. Continue Lovenox. 4. Dexamethasone. 5. Monitor and control blood sugars. 6. Repeat chest x-ray again tomorrow. 7. Echocardiogram. Barrett Martinez MD [facility]/MOD[facility] /[id number]
--- NOTE | 2019-09-11 09:45 | NUR ---
Patient saturation 84% on nonrebreather mask. Dr. Martinez notified and had patient placed on vapotherm high flow nasal cannula. up to 94% at this time.
[2019-09-11] MEDS: INSULIN LISPRO 100 UNIT/1 ML 3ML VIAL SQ SCH ×7 (10:00→22:15)
[2019-09-11] MEDS: ASPIRIN 81 MG CHEW TAB PO SCH (10:05)
[2019-09-11] MEDS: AZITHROMYCIN 500MG/NS 250 ML 250 ML IV SCH (10:05)
[2019-09-11] MEDS: FAMOTIDINE 20 MG/2 ML VIAL IV SCH ×2 (10:05→22:23)
[2019-09-11] MEDS: AMLODIPINE BESYLATE 10 MG TAB PO SCH (10:06)
[2019-09-11] MEDS: FINASTERIDE 5 MG TAB PO SCH (10:06)
[2019-09-11] MEDS: ALLOPURINOL 100 MG TAB PO SCH (10:06)
[2019-09-11] MEDS: ENOXAPARIN SOD INJ 40 MG/0.4 ML SYR SC SCH ×2 (10:06→22:00)
--- NOTE | 2019-09-11 12:08 | Progress Note ---
DATE: SUBJECTIVE: The patient is seen and evaluated. Available labs and notes reviewed. Discussed with Respiratory Therapy. Discussed with the nurse. REVIEW OF SYSTEMS: The patient seems to be short of breath. The patient is currently on non-rebreather. Seems to be alert and oriented. MEDICATIONS: Medication list is reviewed. From ID point of view, the patient is on Zithromax, remdesivir, Rocephin and dexamethasone. LABORATORY STUDIES: White count of 13.66, hemoglobin 13.1, and platelet 250. Sodium 139, potassium 4.5, and creatinine 1.53. Serology: Coronavirus PCR positive on 09/07. MICROBIOLOGY: Urine culture negative, blood culture negative, both done on 09/07. RADIOLOGY STUDIES: No new chest x-ray from today. Chest x-ray from yesterday showed interval increase in the patchy density bilaterally, which may represent pulmonary edema or multifocal infection with bilateral pulmonary venous congestion. PHYSICAL EXAMINATION: VITAL SIGNS: Temperature 97.9, pulse 67, respirations 22, blood pressure 123/71, and O2 saturation 91% on 15 L and non-rebreather. GENERAL: Alert and oriented, seems to be short of breath. CV: S1-S2. CHEST: Equal expansion. Decreased breath sounds. ABDOMEN: Obese, soft. HEENT: Moist. No pallor. No JVD. EXTREMITIES: No significant edema, moves all. ASSESSMENT AND PLAN: 1. Coronavirus disease-19, present on admission. 2. Superimposed bacterial infection of the lungs. 3. Diabetes. 4. Obesity. 5. Neuropathy. The patient seems to be short of breath. The patient has reached from non-rebreather to high-flow 40 L at 100%, O2 saturation improved to 94%. We will add zinc and vitamin C. Continue with Zithromax, Rocephin, and dexamethasone. The patient may need to transfer to ICU if not tolerating the high-flow. Please refer to chart for more information. Discussed with Dr. Mott. Guarded prognosis. Dictated by Enrico Pearce PA-C (Al) Rtuh Mott MD /MODL /[id number]
[2019-09-11] MEDS: DEXAMETHASONE PHOS 4MG/ML 5ML MULTIDOSE VIAL IV SCH (12:09)
[2019-09-11] MEDS: ASCORBIC ACID 500 MG TAB PO SCH (12:09)
[2019-09-11] MEDS: ZINC SULFATE 220 MG CAP PO SCH (12:09)
[2019-09-11] MEDS: CEFTRIAXONE SOD 1 GM/NS 50 ML 50 ML IV SCH (12:15)
[2019-09-11] MEDS: REMDESIVIR 100MG/NS 100ML 100 MG IV SCH (14:45)
[2019-09-11] MEDS: INSULIN GLARGINE 100 UNITS/ML VIAL SQ SCH (22:16)
--- NOTE | 2019-09-11 22:30 | NUR ---
report given to icu nurse then resident moved via w/c to new room. vs stable. Productive cough. Respirations are even and unlabored. Call light within reach. Bed locked in low position. belongings sent to room with pt.
[2019-09-12] VITALS (29 sets, daily range): BP systolic 106–142; BP diastolic 63–94
[2019-09-12] MEDS: GABAPENTIN 100 MG CAP PO SCH ×3 (05:24→23:31)
[2019-09-12 06:00] LABS: BASOPHILS % 0.1 % (0.0-1.0); HEMATOCRIT 37.2 % (38.2-49.6); HEMOGLOBIN 12.7 g/dL (14.0-18.0); LYMPHOCYTES # (AUTO) 1.1 (1.0-3.2); LYMPHOCYTES % 7.6 % (18.0-39.1); MEAN CORPUSCULAR HEMOGLOBIN 30.2 pg (28-32); MEAN CORPUSCULAR HGB CONC 34.1 g/dL (31-35); MEAN CORPUSCULAR VOLUME 88.4 fL (81-99); MONOCYTES # (AUTO) 0.2 (0.2-0.8); MONOCYTES % 1.6 % (4.4-11.3); NEUTROPHILS # (AUTO) 12.4 (2.1-6.9); NEUTROPHILS % 89.8 % (38.7-80.0); PLATELET COUNT 280 x10e3/uL (140-360); RED BLOOD COUNT 4.21 x10e6/uL (4.3-5.7); RED CELL DISTRIBUTION WIDTH 12.8 % (11.7-14.4)
[2019-09-12 06:21] LABS: ALBUMIN 2.1 g/dL (3.5-5.0); ALBUMIN/GLOBULIN RATIO 0.4 (0.8-2.0); ANION GAP 13.9 mmol/L (8-16); CALCIUM 8.8 mg/dL (8.4-10.2); CREATININE, SERUM 1.43 mg/dL (0.72-1.25); POTASSIUM 3.9 mmol/L (3.5-5.1)
[2019-09-12] MEDS: INSULIN LISPRO 100 UNIT/1 ML 3ML VIAL SQ SCH ×7 (07:30→21:03)
[2019-09-12] MEDS: ASPIRIN 81 MG CHEW TAB PO SCH (09:08)
[2019-09-12] MEDS: AMLODIPINE BESYLATE 10 MG TAB PO SCH (09:08)
[2019-09-12] MEDS: AZITHROMYCIN 500MG/NS 250 ML 250 ML IV SCH (09:08)
[2019-09-12] MEDS: ENOXAPARIN SOD INJ 40 MG/0.4 ML SYR SC SCH ×2 (09:09→20:47)
[2019-09-12] MEDS: ALLOPURINOL 100 MG TAB PO SCH (09:09)
[2019-09-12] MEDS: ASCORBIC ACID 500 MG TAB PO SCH (09:09)
[2019-09-12] MEDS: ZINC SULFATE 220 MG CAP PO SCH (09:09)
[2019-09-12] MEDS: FINASTERIDE 5 MG TAB PO SCH (09:09)
--- NOTE | 2019-09-12 09:33 | Progress Note ---
DATE: Pulmonary Critical Care Progress Note SUBJECTIVE: The patient still complains of cough. He has less dyspnea. He remains on a Vapotherm with 40 L. He is on FiO2 of 100%. PHYSICAL EXAMINATION: VITAL SIGNS: The patient is afebrile. The blood pressure is 115/66 and saturation is in the low-to-mid 90s. CARDIAC: Reveals regular rate and rhythm with normal S1 and S2. LUNGS: Auscultation of lungs reveals rhonchorous breath sounds bilaterally. There is no wheezing. ABDOMEN: Soft and nontender. There is no rebound or guarding. EXTREMITIES: Shows no leg edema or calf tenderness. There is no cyanosis or clubbing. SKIN: Shows no rashes. NEUROLOGICAL: Shows no focal abnormalities. LABORATORY DATA: White blood cell count is 13.8 and the hemoglobin is 12.7. Platelet count is 280. BUN to creatinine ratio is 48 to 1.43 and the carbon dioxide is 20. Other electrolytes within normal limits. The albumin is 2.1. IMPRESSION: 1. Acute respiratory failure. 2. Viral pneumonia and COVID-19 infection. 3. Acute kidney injury. 4. Peripheral vascular disease. 5. Diabetes. 6. Hypertension. PLAN: 1. Continue Vapotherm. 2. Complete remdesivir. 3. Lovenox. 4. Dexamethasone. 5. Complete Cardiology evaluation. 6. Continue to monitor BUN and creatinine. Barrett Martinez MD [facility] /[id number]
[2019-09-12] MEDS: FAMOTIDINE 20 MG/2 ML VIAL IV SCH ×2 (09:45→20:47)
--- NOTE | 2019-09-12 10:12 | Progress Note ---
DATE: SUBJECTIVE: The patient is seen and evaluated. Available labs and notes reviewed. Discussed with the staff. The patient on 40 L of high-flow 100%, saturating at 94%. Overall no significant change in oxygen supplement and saturation. REVIEW OF SYSTEMS: Feels better on oxygen. He is comfortable with a current level of oxygen. No nausea, vomiting, fever, chills, or chest pain. PHYSICAL EXAMINATION: VITAL SIGNS: Temperature 97.6, pulse is 60, respiration 20, and blood pressure 115/66. GENERAL: Alert and oriented. Remains on 4 L of high-flow 100%, saturation at 94%. Seems to be comfortable. Alert and oriented. Does not seem in distress, as he was yesterday. CV: S1 and S2. CHEST: Equal expansion. Decreased breath sounds. ABDOMEN: Soft, obese, and nontender. HEENT: Moist. No pallor. No JVD. EXTREMITIES: Weak. MEDICATIONS: Reviewed. Remains on ascorbic acid, zinc sulfate, Zithromax, remdesivir, Rocephin, dexamethasone, and Lovenox. LABORATORY STUDIES: White count of 13.82, no significant change. Hemoglobin 12.7, platelet 280. Sodium 139, potassium 3.9, and creatinine 1.43. Serology; coronavirus PCR positive on 09/07. MICROBIOLOGY: No new microbiology studies available. Blood culture and urine cultures were negative on 09/07. IMAGING: No new radiology studies available. ASSESSMENT AND PLAN: 1. COVID-19, present on admission. 2. Superimposed bacterial infection/pneumonia. 3. Diabetes. 4. Neuropathy. 5. Obesity. 6. Remains on same amount of oxygen supplement at high-flow 40 L at 100%, saturation 94%. Overall no significant change from yesterday. Mentally, seems a little bit more relaxed and not as distressed. Continue with antibiotics as above. Clinically looks better today. Dictated by Enrico Pearce PA-C (Al) Ruth Mott MD /MODL /[id number]
[2019-09-12] MEDS: DEXAMETHASONE PHOS 4MG/ML 5ML MULTIDOSE VIAL IV SCH (12:10)
[2019-09-12] MEDS: CEFTRIAXONE SOD 1 GM/NS 50 ML 50 ML IV SCH (12:10)
[2019-09-12] MEDS: REMDESIVIR 100MG/NS 100ML 100 MG IV SCH (14:34)
[2019-09-12] MEDS: GUAIFENESIN/CODEINE 10 ML CUP PO PRN ×2 (15:39→23:31)
[2019-09-12] MEDS: INSULIN GLARGINE 100 UNITS/ML VIAL SQ SCH (21:02)
[2019-09-13] VITALS (19 sets, daily range): BP systolic 108–152; BP diastolic 58–90
--- NOTE | 2019-09-13 05:22 | Diagnostic Imaging Report ---
EXAMINATION: CHEST SINGLE (PORTABLE) INDICATION: ^resp failure COMPARISON: 09/10/2019 FINDINGS: AP view TUBES and LINES: None. LUNGS: No significant change in patchy bilateral pulmonary airspace disease. The pulmonary vasculature remains prominent. PLEURA: No pleural effusion or pneumothorax. HEART AND MEDIASTINUM: The cardiomediastinal silhouette is unremarkable. BONES AND SOFT TISSUES: No acute osseous lesion. Soft tissues are unremarkable. UPPER ABDOMEN: No free air under the diaphragm. IMPRESSION: No significant interval change in patchy pulmonary airspace disease which again may represent pneumonia and/or pulmonary edema. Signed by: Davon Roy MD on 09/13/2019 5:19 AM
[2019-09-13 06:08] LABS: BASOPHILS % 0.1 % (0.0-1.0); HEMATOCRIT 35.7 % (38.2-49.6); HEMOGLOBIN 12.1 g/dL (14.0-18.0); LYMPHOCYTES # (AUTO) 0.8 (1.0-3.2); LYMPHOCYTES % 5.7 % (18.0-39.1); MEAN CORPUSCULAR HEMOGLOBIN 30.2 pg (28-32); MEAN CORPUSCULAR HGB CONC 33.9 g/dL (31-35); MONOCYTES # (AUTO) 0.2 (0.2-0.8); MONOCYTES % 1.4 % (4.4-11.3); NEUTROPHILS # (AUTO) 12.2 (2.1-6.9); NEUTROPHILS % 92.1 % (38.7-80.0); PLATELET COUNT 251 x10e3/uL (140-360); RED BLOOD COUNT 4.01 x10e6/uL (4.3-5.7); RED CELL DISTRIBUTION WIDTH 12.9 % (11.7-14.4)
[2019-09-13 06:57] LABS: ALBUMIN/GLOBULIN RATIO 0.4 (0.8-2.0); ANION GAP 13.9 mmol/L (8-16); CALCIUM 8.5 mg/dL (8.4-10.2); CREATININE, SERUM 1.44 mg/dL (0.72-1.25); POTASSIUM 3.9 mmol/L (3.5-5.1)
[2019-09-13] MEDS: GABAPENTIN 100 MG CAP PO SCH ×3 (07:00→21:49)
[2019-09-13] MEDS: INSULIN LISPRO 100 UNIT/1 ML 3ML VIAL SQ SCH ×7 (07:30→21:55)
[2019-09-13] MEDS ORDERED: FUROSEMIDE INJ 10 MG/ML 4 ML VIAL IV ONE (08:30)
[2019-09-13] MEDS: ALBUMIN 25% 25GM 100ML 0.25 GM/ML BTL IV SCH ×2 (09:41→17:00)
[2019-09-13] MEDS: AZITHROMYCIN 500MG/NS 250 ML 250 ML IV SCH (09:43)
--- NOTE | 2019-09-13 09:48 | Progress Note ---
DATE: Pulmonary Critical Care Progress Note SUBJECTIVE: The patient remains on Vapotherm. He is more comfortable today. He is still on 100% with a liter flow of 40. His respiratory rate is now in the low 20s and his saturation is 99%. He is not having chest pain. He has no nausea or vomiting. PHYSICAL EXAMINATION: VITAL SIGNS: Blood pressure is 117/73, saturation is 99% and the respiratory rate is 26. Pulse is 65. HEENT: Shows no facial swelling or erythema. CARDIAC: Reveals regular rate and rhythm with normal S1, S2. LUNGS: Auscultation of lungs reveals crackles at the bases. There is no wheezing. ABDOMEN: Soft and nontender. There is no rebound or guarding. EXTREMITIES: Shows no leg edema or calf tenderness. There is no cyanosis clubbing. SKIN: Shows no rashes. LABORATORY DATA: White blood cell count is 13.2 and hemoglobin is 12.1. The platelet count is 251. BUN to creatinine ratio is 45 to 1.44, and the carbon dioxide is 20. Other electrolytes are within normal limits. The albumin is 2.0. RADIOGRAPHIC DATA: There is no significant change or still bilateral infiltrates. IMPRESSION: 1. Acute respiratory failure. 2. Viral pneumonia and COVID-19 infection. 3. Acute kidney injury. 4. Peripheral vascular disease. 5. Diabetes. 6. Hypertension. PLAN: 1. Wean Vapotherm to high-flow oxygen as tolerated. 2. Lasix with albumin. 3. Lovenox twice daily. 4. Complete the remdesivir and dexamethasone. 5. Echocardiogram. 6. Albumin and Lasix today. 7. Case discussed with Respiratory, nursing staff, the patient, and Nephrology. Greater than 35 minutes in direct critical care time. Barrett Martinez MD [facility]/MODL /[id number]
[2019-09-13] MEDS: ASPIRIN 81 MG CHEW TAB PO SCH (10:04)
[2019-09-13] MEDS: FAMOTIDINE 20 MG/2 ML VIAL IV SCH ×2 (10:04→20:23)
[2019-09-13] MEDS: ENOXAPARIN SOD INJ 40 MG/0.4 ML SYR SC SCH ×2 (10:06→20:23)
[2019-09-13] MEDS: ZINC SULFATE 220 MG CAP PO SCH (10:06)
[2019-09-13] MEDS: ALLOPURINOL 100 MG TAB PO SCH (10:06)
[2019-09-13] MEDS: FINASTERIDE 5 MG TAB PO SCH (10:06)
[2019-09-13] MEDS: AMLODIPINE BESYLATE 10 MG TAB PO SCH (10:06)
[2019-09-13] MEDS: ASCORBIC ACID 500 MG TAB PO SCH (10:06)
[2019-09-13] MEDS ORDERED: FAMOTIDINE 20 MG/2 ML VIAL IV ONE (13:27)
[2019-09-13] MEDS ORDERED: ONDANSETRON HCL INJ 2MG/ML 2ML 2 MG/ML VIAL ONE (13:27)
[2019-09-13] MEDS ORDERED: ASPIRIN 81 MG CHEW TAB ONE (13:27)
[2019-09-13] MEDS ORDERED: AMLODIPINE BESYLATE 10 MG TAB ONE (13:27)
[2019-09-13] MEDS ORDERED: ENOXAPARIN SOD INJ 40 MG/0.4 ML SYR SC ONE (13:27)
[2019-09-13] MEDS ORDERED: ALLOPURINOL 100 MG TAB ONE (13:27)
[2019-09-13] MEDS ORDERED: ZINC SULFATE 220 MG CAP ONE (13:27)
[2019-09-13] MEDS ORDERED: ASCORBIC ACID 500 MG TAB ONE (13:27)
[2019-09-13] MEDS: CEFTRIAXONE SOD 1 GM/NS 50 ML 50 ML IV SCH (13:50)
[2019-09-13] MEDS: DEXAMETHASONE PHOS 4MG/ML 5ML MULTIDOSE VIAL IV SCH (13:50)
[2019-09-13] MEDS: REMDESIVIR 100MG/NS 100ML 100 MG IV SCH (15:08)
--- NOTE | 2019-09-13 15:15 | Consultation ---
DATE OF CONSULTATION: Nephrology Consultation Report REASON FOR CONSULTATION: Acute kidney injury. HISTORY OF PRESENT ILLNESS: Mr. Dave Contreras is a 74-year-old male, who presented to the hospital because he was feeling weak and not feeling well for the prior 6-8 days before admission. Since he has been here, he presented to the emergency room and he was diagnosed as having COVID pneumonia. When he presented, I am being asked to see him because his BUN and creatinine are 45 and 1.44 respectively. It looks like when the patient was admitted, his BUN and creatinine were 54 and 2.04. His creatinine was 2.04 on admission and later on, the creatinine dropped to 1.43 and then it precious to 1.5 and now it is back down to 1.44. I do not have any old records, so I do not know what his baseline BUN and creatinine are, but he does have a history of diabetes and hypertension. PAST MEDICAL HISTORY: Diabetes, hypertension. The patient is obese. REVIEW OF SYSTEMS: As per HPI. MEDICINES: As seen on MAY. The patient is on Decadron, vitamin C, zinc, Norvasc, Lovenox, Proscar, allopurinol, aspirin, Pepcid, azithromycin, albumin, Neurontin, Robitussin, insulin glargine, remdesivir, insulin, Zofran, Ventolin. He did get one dose of Lasix. PHYSICAL EXAMINATION: VITAL SIGNS: Blood pressure is 117/73, pulse 65, respirations 26. Temperature is 96.5. GENERAL: The patient's physical exam is limited since he was in a COVID isolation room. The patient is an obese male. CARDIOVASCULAR: Regular rate and rhythm. The patient is on Vapotherm at 40 L. no significant edema. LABORATORY RESULTS: Sodium 140, potassium 3.9, chloride 110, bicarbonate 20, BUN and creatinine 45 and 1.44 respectively. Urinalysis shows 6-10 red cells, 6-10 white cells, everything else was negative. 1+ protein, small blood. IMPRESSION: 1. Acute kidney injury. 2. Coronavirus disease pneumonia. 3. Diabetes. 4. Hypertension. PLAN: At the present time, the patient is receiving remdesivir and also steroids for his COVID pneumonia. I will keep an eye on his BUN and steroids, may make the BUN go up some and the patient's fluid balance has actually been not bad, he has been in negative fluid balance and today he was slightly positive. We should keep him in a slightly positive fluid balance, so what I will do is I will give him some Lasix 40 mg IV once a day just to make sure he does not become even or slightly positive. NSAIDs, IL-2 inhibitors and IV contrast should be avoided. He is getting maximum treatment for the COVID pneumonia and this will be continued. I will follow the patient with you. Thank you, Dr. Henry, for this consultation. Ather MD [facility] /[id number]
[2019-09-13] MEDS: GUAIFENESIN/CODEINE 10 ML CUP PO PRN (20:23)
[2019-09-13] MEDS: INSULIN GLARGINE 100 UNITS/ML VIAL SQ SCH (21:55)
[2019-09-14] VITALS (26 sets, daily range): BP systolic 102–136; BP diastolic 53–79
[2019-09-14] MEDS: GUAIFENESIN/CODEINE 10 ML CUP PO PRN ×2 (03:18→23:00)
[2019-09-14] MEDS: GABAPENTIN 100 MG CAP PO SCH ×3 (06:00→21:30)
[2019-09-14 06:15] LABS: HEMATOCRIT 35.2 % (38.2-49.6); HEMOGLOBIN 11.9 g/dL (14.0-18.0); LYMPHOCYTES # (AUTO) 0.7 (1.0-3.2); LYMPHOCYTES % 4.6 % (18.0-39.1); MEAN CORPUSCULAR HEMOGLOBIN 30.3 pg (28-32); MEAN CORPUSCULAR HGB CONC 33.8 g/dL (31-35); MEAN CORPUSCULAR VOLUME 89.6 fL (81-99); MONOCYTES # (AUTO) 0.2 (0.2-0.8); MONOCYTES % 1.3 % (4.4-11.3); NEUTROPHILS # (AUTO) 13.2 (2.1-6.9); NEUTROPHILS % 93.5 % (38.7-80.0); PLATELET COUNT 254 x10e3/uL (140-360); RED BLOOD COUNT 3.93 x10e6/uL (4.3-5.7); RED CELL DISTRIBUTION WIDTH 12.7 % (11.7-14.4)
[2019-09-14 06:46] LABS: ALBUMIN 1.8 g/dL (3.5-5.0); ALBUMIN/GLOBULIN RATIO 0.4 (0.8-2.0); ANION GAP 16.1 mmol/L (8-16); CREATININE, SERUM 1.4 mg/dL (0.72-1.25); POTASSIUM 4.1 mmol/L (3.5-5.1)
--- NOTE | 2019-09-14 07:08 | Diagnostic Imaging Report ---
EXAMINATION: CHEST SINGLE (PORTABLE) INDICATION: ^resp failure ^[id number] ^0400 COMPARISON: 09/13/2019 FINDINGS: AP view TUBES and LINES: None. LUNGS: Unchanged patchy airspace disease within both lungs. PLEURA: No pleural effusion or pneumothorax. HEART AND MEDIASTINUM: The cardiomediastinal silhouette is unchanged. BONES AND SOFT TISSUES: No acute osseous lesion. Soft tissues are unremarkable. UPPER ABDOMEN: No free air under the diaphragm. IMPRESSION: Stable exam. Unchanged airspace disease within both lungs suggestive of viral pneumonia. Signed by: Davon Roy MD on 09/14/2019 7:05 AM
[2019-09-14] MEDS ORDERED: POTASSIUM CHLORIDE 20MEQ/15ML UDC NG STA (07:11)
[2019-09-14] MEDS ORDERED: CALCIUM GLUCONATE 10% INJ 4.65 MEQ in SODIUM CHLORIDE 0.9% 50ML 50 ML IV ONE (07:15)
[2019-09-14] MEDS ORDERED: POTASSIUM CHLORIDE 20MEQ/100ML 200 ML IV ONE (07:15)
[2019-09-14] MEDS: INSULIN LISPRO 100 UNIT/1 ML 3ML VIAL SQ SCH ×7 (07:30→21:00)
[2019-09-14] MEDS: FUROSEMIDE INJ 10 MG/ML 4 ML VIAL IV SCH (09:14)
[2019-09-14] MEDS: ASCORBIC ACID 500 MG TAB PO SCH ×2 (09:31→17:21)
[2019-09-14] MEDS: FAMOTIDINE 20 MG/2 ML VIAL IV SCH ×2 (09:31→21:00)
[2019-09-14] MEDS: ZINC SULFATE 220 MG CAP PO SCH (09:31)
[2019-09-14] MEDS: ASPIRIN 81 MG CHEW TAB PO SCH (09:31)
[2019-09-14] MEDS: AZITHROMYCIN 500MG/NS 250 ML 250 ML IV SCH (09:31)
[2019-09-14] MEDS: FINASTERIDE 5 MG TAB PO SCH (09:31)
[2019-09-14] MEDS: AMLODIPINE BESYLATE 10 MG TAB PO SCH (09:31)
[2019-09-14] MEDS: ENOXAPARIN SOD INJ 40 MG/0.4 ML SYR SC SCH ×2 (09:32→21:00)
[2019-09-14] MEDS: ALLOPURINOL 100 MG TAB PO SCH (09:32)
[2019-09-14 09:36] LABS: ABG HCO3 21 mmol/L (22-26); ABG PCO2 31 mmHg (35-45); ABG PH 7.44 (7.35-7.45); ABG PO2 75 mmHg (80-105)
--- NOTE | 2019-09-14 11:13 | Progress Note ---
DATE: SUBJECTIVE: The patient is coughing. He has less respiratory distress. He is on Vapotherm at 35 L with 100%. PHYSICAL EXAMINATION: VITAL SIGNS: Blood pressure is 116/71, saturation is now 97%, and the respiratory rate is 22. HEENT: Shows no facial swelling or erythema. CARDIAC: Reveals regular rate and rhythm with normal S1 and S2. LUNGS: Auscultation of lungs reveals rhonchorous breath sounds bilaterally. There is no wheezing. ABDOMEN: Soft and nontender. There is no rebound or guarding. EXTREMITIES: Shows no leg edema or calf tenderness. There is no cyanosis or clubbing. SKIN: Shows no rashes. NEUROLOGICAL: Shows no focal abnormalities. LABORATORY DATA: White blood cell count is 14.1 and hemoglobin is 11.9. Platelet count is 254. BUN to creatinine ratio is 43 to 1.4. Carbon dioxide is 19. Other electrolytes are within normal limits. Albumin is 1.8. RADIOGRAPHIC DATA: Chest x-ray shows unchanged bilateral infiltrates. IMPRESSION: 1. Acute respiratory failure. 2. Viral pneumonia and COVID-19 infection. 3. Acute kidney injury. 4. Diabetes. 5. Hypertension. 6. Peripheral vascular disease. PLAN: 1. Continue to wean Vapotherm as tolerated. 2. Continue Lovenox. 3. Complete remdesivir and dexamethasone. 4. Continue to monitor creatinine and follow recommendations of Nephrology. Barrett Martinez MD [facility] /[id number]
--- NOTE | 2019-09-14 11:49 | NUR ---
Nutrition Screen Note RD Recommendation for Physician: Continue diet as ordered Plan of Care: RD following monitoring for tolerance and adequacy Nutrition reason for involvement: LOS Primary Diagnose(s): Hyperglycemia, Pneumonia due to COVID - 19 PMH: T2DM, HTN, overweight/obesity, Gout, dyslipidemia, DM pneuropathy, reflux, Ht:67 in Wt:220.25 lbs BMI:34.5 kg/m2 IBW: [address] Assessment: Initial encounter with patient. Diet Hx: Pt denies any known food allergies. Medications: reviewed: on Vitamin C, zinc sulfate, lasix. Pt was eating breakfast at time of visit and only had C/O coughing due to COVID-19 pneumonia. Pt denies any difficulty chewing or swallowing nor has any nausea or vomiting. Pt reported a good PO intake [employer]. No significant wt changes. Pt is able to feed himself. Biochemical data reviewed. Hyperglycemia POC 279 on 09/12 Current Diet: 1800 ADA Malnutrition Evaluation (09/14/2019) The patient does not meet criteria for a specified degree of malnutrition at this time. Will re-evaluate at follow-up as appropriate. Diet Education Needs Assessment: Diet education not indicated at this time Diet tolerance: Tolerating PO diet Nutrition Care Level: toan Hurley RD, LD, CNSC
[2019-09-14] MEDS ORDERED: DEXAMETHASONE SOD PHOS 10 MG/1 ML VIAL ONE (12:28)
[2019-09-14] MEDS: DEXAMETHASONE PHOS 4MG/ML 5ML MULTIDOSE VIAL IV SCH (12:30)
[2019-09-14] MEDS: CEFTRIAXONE SOD 1 GM/NS 50 ML 50 ML IV SCH (12:31)
[2019-09-14] MEDS: INSULIN GLARGINE 100 UNITS/ML VIAL SQ SCH (21:00)
[2019-09-15] VITALS (14 sets, daily range): BP systolic 95–135; BP diastolic 61–82
[2019-09-15] MEDS: GUAIFENESIN/CODEINE 10 ML CUP PO PRN ×3 (04:47→21:10)
--- NOTE | 2019-09-15 06:02 | Diagnostic Imaging Report ---
EXAMINATION: CHEST SINGLE (PORTABLE) INDICATION: ^resp failure COMPARISON: 09/14/2019 FINDINGS: AP view TUBES and LINES: None. LUNGS: Unchanged patchy pulmonary airspace disease. PLEURA: No pleural effusion or pneumothorax. HEART AND MEDIASTINUM: The cardiomediastinal silhouette is unchanged. BONES AND SOFT TISSUES: No acute osseous lesion. Soft tissues are unremarkable. UPPER ABDOMEN: No free air under the diaphragm. IMPRESSION: Unchanged pulmonary airspace disease consistent with viral pneumonia. Signed by: Davon Roy MD on 09/15/2019 5:59 AM
[2019-09-15] MEDS: GABAPENTIN 100 MG CAP PO SCH ×3 (06:32→21:10)
[2019-09-15] MEDS: INSULIN LISPRO 100 UNIT/1 ML 3ML VIAL SQ SCH ×7 (07:30→21:14)
[2019-09-15 08:55] LABS: BASOPHILS % 0.2 % (0.0-1.0); HEMATOCRIT 41.2 % (38.2-49.6); HEMOGLOBIN 13.7 g/dL (14.0-18.0); LYMPHOCYTES # (AUTO) 0.7 (1.0-3.2); LYMPHOCYTES % 3.6 % (18.0-39.1); MEAN CORPUSCULAR HEMOGLOBIN 29.5 pg (28-32); MEAN CORPUSCULAR HGB CONC 33.3 g/dL (31-35); MEAN CORPUSCULAR VOLUME 88.6 fL (81-99); MONOCYTES # (AUTO) 0.3 (0.2-0.8); MONOCYTES % 1.3 % (4.4-11.3); NEUTROPHILS # (AUTO) 17.6 (2.1-6.9); NEUTROPHILS % 94.2 % (38.7-80.0); PLATELET COUNT 277 x10e3/uL (140-360); RED BLOOD COUNT 4.65 x10e6/uL (4.3-5.7); RED CELL DISTRIBUTION WIDTH 12.8 % (11.7-14.4)
[2019-09-15 09:12] LABS: ALBUMIN/GLOBULIN RATIO 0.4 (0.8-2.0); ANION GAP 14.5 mmol/L (8-16); CALCIUM 8.9 mg/dL (8.4-10.2); CREATININE, SERUM 1.4 mg/dL (0.72-1.25); POTASSIUM 3.5 mmol/L (3.5-5.1)
[2019-09-15] MEDS: ASPIRIN 81 MG CHEW TAB PO SCH (10:05)
[2019-09-15] MEDS: FUROSEMIDE INJ 10 MG/ML 4 ML VIAL IV SCH (10:05)
[2019-09-15] MEDS: FAMOTIDINE 20 MG/2 ML VIAL IV SCH ×2 (10:05→21:10)
[2019-09-15] MEDS: AZITHROMYCIN 500MG/NS 250 ML 250 ML IV SCH (10:05)
[2019-09-15] MEDS: ZINC SULFATE 220 MG CAP PO SCH (10:06)
[2019-09-15] MEDS: ALLOPURINOL 100 MG TAB PO SCH (10:06)
[2019-09-15] MEDS: FINASTERIDE 5 MG TAB PO SCH (10:06)
[2019-09-15] MEDS: AMLODIPINE BESYLATE 10 MG TAB PO SCH (10:06)
[2019-09-15] MEDS: ENOXAPARIN SOD INJ 40 MG/0.4 ML SYR SC SCH ×2 (10:06→21:10)
[2019-09-15] MEDS: ASCORBIC ACID 500 MG TAB PO SCH ×2 (10:06→17:28)
[2019-09-15] MEDS: CEFTRIAXONE SOD 1 GM/NS 50 ML 50 ML IV SCH (12:05)
[2019-09-15] MEDS: DEXAMETHASONE PHOS 4MG/ML 5ML MULTIDOSE VIAL IV SCH (12:05)
[2019-09-15] MEDS: POTASSIUM CHLORIDE 20 MEQ TAB CR PO SCH (13:23)
--- NOTE | 2019-09-15 19:48 | Progress Note ---
DATE: SUBJECTIVE: The patient is doing better. He has less dyspnea and less cough. His Vapotherm is decreased at 35 L with 80% FiO2. PHYSICAL EXAMINATION: VITAL SIGNS: The patient is afebrile. Blood pressure is 135/82, and saturation is 100%. HEENT: Shows no facial swelling or erythema. CARDIAC: Reveals regular rate and rhythm with normal S1, S2. LUNGS: Auscultation of lungs reveals rhonchorous breath sounds bilaterally. There is no wheezing. ABDOMEN: Soft. Nontender. There is no rebound or guarding. EXTREMITIES: Shows no leg edema or calf tenderness. There is no cyanosis or clubbing. SKIN: Shows no rashes. NEUROLOGIC: Shows no focal abnormalities. LABORATORY DATA: White blood cell count is 18.7, hemoglobin is 13.7, and platelet count is normal. BUN to creatinine ratio is 44 to 1.4. Other electrolytes within normal limits. The albumin is 2.0. RADIOGRAPHIC DATA: Chest bilateral infiltrates. IMPRESSION: 1. Acute respiratory failure. 2. Viral pneumonia and COVID-19 infection. 3. Acute kidney injury. 4. Diabetes. 5. Hypertension. 6. Peripheral vascular disease. PLAN: 1. Continue to wean Vapotherm as tolerated. 2. Continue Lovenox. 3. Complete antibiotics and dexamethasone. 4. Continue to monitor creatinine. 5. Possible transfer out of Intensive Care Unit with soft Vapotherm. Barrett Martinez MD [facility]/MODL /[id number]
[2019-09-15] MEDS: INSULIN GLARGINE 100 UNITS/ML VIAL SQ SCH (21:14)
[2019-09-16] VITALS (24 sets, daily range): BP systolic 94–117; BP diastolic 59–75
[2019-09-16] MEDS: GUAIFENESIN/CODEINE 10 ML CUP PO PRN ×3 (01:15→20:30)
--- NOTE | 2019-09-16 05:29 | Diagnostic Imaging Report ---
EXAMINATION: CHEST SINGLE (PORTABLE) INDICATION: ^viral pneumonia COMPARISON: 09/15/2019 FINDINGS: AP view TUBES and LINES: None. LUNGS: Unchanged diffuse pulmonary opacities. PLEURA: No pleural effusion or pneumothorax. HEART AND MEDIASTINUM: The cardiomediastinal silhouette is unremarkable. BONES AND SOFT TISSUES: No acute osseous lesion. Soft tissues are unremarkable. UPPER ABDOMEN: No free air under the diaphragm. IMPRESSION: Stable exam. Unchanged pulmonary opacities consistent with provided history of viral pneumonia. Signed by: Davon Roy MD on 09/16/2019 5:25 AM
[2019-09-16] MEDS: GABAPENTIN 100 MG CAP PO SCH ×3 (06:04→21:11)
--- NOTE | 2019-09-16 06:04 | Progress Note ---
DATE: 09/12/2019 Pulmonary Critical Care Progress Note SUBJECTIVE: The patient is still on Vapotherm. He has some cough. He has some dyspnea. PHYSICAL EXAMINATION: VITAL SIGNS: The patient is afebrile. The blood pressure is 115/66, and saturation is 94%. He is on a Vapotherm at 40 L with maximum oxygen. HEENT: Shows no facial swelling or erythema. CARDIAC: Reveals regular rate and rhythm with normal S1 and S2. LUNGS: Auscultation of lungs shows crackles at the bases. There is no wheezing. ABDOMEN: Soft and nontender. There is no rebound or guarding. EXTREMITIES: Shows no leg edema or calf tenderness. There is no cyanosis or clubbing. SKIN: Shows no rashes. NEUROLOGICAL: Shows no focal abnormalities. LABORATORY DATA: BUN to creatinine ratio is 48 to 1.43 and the other electrolytes are within normal limits. The albumin is 2.1. The white blood cell count is 13.8 and hemoglobin is 12.7. The platelet count is 280. IMPRESSION: 1. Acute respiratory failure. 2. COVID-19 infection and viral pneumonia. 3. Diabetes. 4. Acute kidney. DICTATION ENDS HERE Barrtet Martinez MD [facility] /[id number]
[2019-09-16 06:06] LABS: BASOPHILS % 0.1 % (0.0-1.0); EOSINOPHILS % 0.1 % (0.0-6.0); HEMOGLOBIN 13.2 g/dL (14.0-18.0); LYMPHOCYTES # (AUTO) 0.7 (1.0-3.2); LYMPHOCYTES % 3.9 % (18.0-39.1); MEAN CORPUSCULAR VOLUME 90.9 fL (81-99); MONOCYTES # (AUTO) 0.2 (0.2-0.8); NEUTROPHILS # (AUTO) 15.7 (2.1-6.9); NEUTROPHILS % 94.4 % (38.7-80.0); PLATELET COUNT 243 x10e3/uL (140-360); RED CELL DISTRIBUTION WIDTH 12.8 % (11.7-14.4)
[2019-09-16 06:33] LABS: ALBUMIN/GLOBULIN RATIO 0.4 (0.8-2.0); ANION GAP 17.1 mmol/L (8-16); CREATININE, SERUM 1.4 mg/dL (0.72-1.25); POTASSIUM 4.1 mmol/L (3.5-5.1)
[2019-09-16] MEDS: INSULIN LISPRO 100 UNIT/1 ML 3ML VIAL SQ SCH ×7 (07:30→21:10)
[2019-09-16] MEDS: ASCORBIC ACID 500 MG TAB PO SCH ×2 (08:47→16:36)
[2019-09-16] MEDS: AZITHROMYCIN 500MG/NS 250 ML 250 ML IV SCH (08:47)
[2019-09-16] MEDS: ASPIRIN 81 MG CHEW TAB PO SCH (08:47)
[2019-09-16] MEDS: FAMOTIDINE 20 MG/2 ML VIAL IV SCH ×2 (08:47→21:10)
[2019-09-16] MEDS: FUROSEMIDE INJ 10 MG/ML 4 ML VIAL IV SCH ×2 (08:47→09:00)
[2019-09-16] MEDS: ENOXAPARIN SOD INJ 40 MG/0.4 ML SYR SC SCH ×3 (08:48→21:10)
[2019-09-16] MEDS: FINASTERIDE 5 MG TAB PO SCH (08:48)
[2019-09-16] MEDS: ALLOPURINOL 100 MG TAB PO SCH (08:48)
[2019-09-16] MEDS: POTASSIUM CHLORIDE 20 MEQ TAB CR PO SCH (08:49)
[2019-09-16] MEDS: AMLODIPINE BESYLATE 10 MG TAB PO SCH (08:50)
[2019-09-16 08:52] LABS: LYMPHOCYTES % (MANUAL) 2 % (19-48); MONOCYTES % (MANUAL) 1 % (3.4-9.0); NEUTROPHILS % (MANUAL) 97 % (40-74); NUCLEATED RED BLOOD CELLS 1; PLATELET ESTIMATE ADEQUATE; PLATELET MORPHOLOGY COMMENT NORMAL; RBC MORPHOLOGY COMMENT NORMAL
[2019-09-16] MEDS: ZINC SULFATE 220 MG CAP PO SCH (09:00)
--- NOTE | 2019-09-16 09:41 | Progress Note ---
DATE: SUBJECTIVE: The patient is having less dyspnea and less cough. He is on a Vapotherm and is at 50% with 35 L of oxygen. PHYSICAL EXAMINATION: VITAL SIGNS: The blood pressure is 114/67 and saturation is 95%. HEENT: Shows no facial swelling or erythema. CARDIAC: Reveals regular rate and rhythm with normal S1 and S2. LUNGS: Auscultation of lungs reveals rhonchorous breath sounds bilaterally. There is no wheezing. ABDOMEN: Soft and nontender. There is no rebound or guarding. EXTREMITIES: Shows no leg edema or calf tenderness. There is no cyanosis or clubbing. SKIN: Shows no rashes. NEUROLOGICAL: Shows no focal abnormalities. LABORATORY DATA: White blood cell count is 16.6 and hemoglobin is 13.2. The platelet count is 243. The BUN to creatinine ratio is 52 to 1.4. Other electrolytes are within normal limits. Albumin is 2. IMPRESSION: 1. Acute respiratory failure. 2. Viral pneumonia and COVID-19 infection. 3. Diabetes. 4. Acute kidney injury. 5. Hypertension. 6. Peripheral vascular disease. PLAN: 1. Continue to wean Vapotherm and transition to high-flow oxygen. 2. Continue Lovenox. 3. Complete dexamethasone. 4. Continue Lasix. 5. Continue to monitor creatinine. Barrett Martinez MD [facility]/MODL /[id number]
[2019-09-16] MEDS ORDERED: LIDOCAINE HCL 2% LOCAL 20 ML VIAL ONE (11:35)
[2019-09-16] MEDS ORDERED: GUAIFENESIN/CODEINE 10 ML CUP ONE (12:00)
[2019-09-16] MEDS ORDERED: SODIUM CHLORIDE 0.9% 1000ML 1,000 ML IV ONE (13:15)
[2019-09-16] MEDS: CEFTRIAXONE SOD 1 GM/NS 50 ML 50 ML IV SCH (13:43)
[2019-09-16] MEDS: DEXAMETHASONE PHOS 4MG/ML 5ML MULTIDOSE VIAL IV SCH (13:43)
--- NOTE | 2019-09-16 14:21 | Operative Report ---
DATE OF PROCEDURE: SURGEON: Barrett Martinez MD PROCEDURE: Central line placement under ultrasound guidance. PREOPERATIVE DIAGNOSIS: Chronic renal failure, stage 3. POSTOPERATIVE DIAGNOSIS: Chronic renal failure, stage 3. CONSENT: Consent was obtained from the patient. ANESTHESIA: 1% lidocaine for local anesthesia. PROCEDURE IN DETAIL: The right groin was prepped sterilely with chlorhexidine. A full length sterile drape along with a sterile gown, gloves, and sterile mask were used. An ultrasound machine was used to locate the right femoral vein. The vein was visualized and cannulated directly with a 16-gauge needle. A wire was passed through the needle. Dilator was used to open the skin and a triple-lumen catheter was placed over the wire by the Seldinger technique. All the ports flushed. COMPLICATIONS: None. ESTIMATED BLOOD LOSS: None. Barrett Martinez MD [facility]/MODL /[id number]
[2019-09-16 14:45] LABS: ABG HCO3 20 mmol/L (22-26); ABG PCO2 27 mmHg (35-45); ABG PH 7.48 (7.35-7.45); ABG PO2 65 mmHg (80-105)
[2019-09-16] MEDS ORDERED: DEXMEDETOMIDINE HCL 200 MCG in SODIUM CHLORIDE 0.9% 50ML 48 ML IV PRN (20:15)
[2019-09-16] MEDS: INSULIN GLARGINE 100 UNITS/ML VIAL SQ SCH (21:11)
[2019-09-17] VITALS (24 sets, daily range): BP systolic 99–144; BP diastolic 55–79
[2019-09-17] MEDS: GUAIFENESIN/CODEINE 10 ML CUP PO PRN ×2 (05:57→12:31)
[2019-09-17] MEDS: GABAPENTIN 100 MG CAP PO SCH ×3 (05:57→21:00)
[2019-09-17 06:00] LABS: BASOPHILS % 0.1 % (0.0-1.0); EOSINOPHILS % 0.2 % (0.0-6.0); HEMATOCRIT 30.4 % (38.2-49.6); HEMOGLOBIN 10.2 g/dL (14.0-18.0); LYMPHOCYTES # (AUTO) 0.7 (1.0-3.2); LYMPHOCYTES % 5.8 % (18.0-39.1); MEAN CORPUSCULAR HEMOGLOBIN 29.8 pg (28-32); MEAN CORPUSCULAR HGB CONC 33.6 g/dL (31-35); MEAN CORPUSCULAR VOLUME 88.9 fL (81-99); MONOCYTES # (AUTO) 0.2 (0.2-0.8); MONOCYTES % 1.2 % (4.4-11.3); NEUTROPHILS # (AUTO) 11.3 (2.1-6.9); PLATELET COUNT 191 x10e3/uL (140-360); RED BLOOD COUNT 3.42 x10e6/uL (4.3-5.7); RED CELL DISTRIBUTION WIDTH 12.9 % (11.7-14.4)
[2019-09-17 06:31] LABS: ALBUMIN 1.5 g/dL (3.5-5.0); ALBUMIN/GLOBULIN RATIO 0.3 (0.8-2.0); ANION GAP 11.2 mmol/L (8-16); CREATININE, SERUM 1.26 mg/dL (0.72-1.25); POTASSIUM 4.2 mmol/L (3.5-5.1)
[2019-09-17] MEDS: INSULIN LISPRO 100 UNIT/1 ML 3ML VIAL SQ SCH ×7 (07:30→21:00)
[2019-09-17] MEDS: ENOXAPARIN SOD INJ 40 MG/0.4 ML SYR SC SCH (08:10)
[2019-09-17] MEDS: AZITHROMYCIN 500MG/NS 250 ML 250 ML IV SCH (08:10)
[2019-09-17] MEDS: FAMOTIDINE 20 MG/2 ML VIAL IV SCH ×2 (08:10→20:50)
[2019-09-17] MEDS: ALLOPURINOL 100 MG TAB PO SCH (08:18)
[2019-09-17] MEDS: ASPIRIN 81 MG CHEW TAB PO SCH (08:18)
[2019-09-17] MEDS: ZINC SULFATE 220 MG CAP PO SCH (08:18)
[2019-09-17] MEDS: FINASTERIDE 5 MG TAB PO SCH (08:18)
[2019-09-17] MEDS: ASCORBIC ACID 500 MG TAB PO SCH ×2 (08:18→17:50)
[2019-09-17] MEDS: AMLODIPINE BESYLATE 10 MG TAB PO SCH (08:19)
[2019-09-17 09:49] LABS: LYMPHOCYTES % (MANUAL) 9 % (19-48); MONOCYTES % (MANUAL) 1 % (3.4-9.0); NEUTROPHILS % (MANUAL) 90 % (40-74); PLATELET ESTIMATE ADEQUATE; PLATELET MORPHOLOGY COMMENT NORMAL; RBC MORPHOLOGY COMMENT NORMAL
--- NOTE | 2019-09-17 10:11 | Progress Note ---
DATE: SUBJECTIVE: The patient is still on Vapotherm. He is down to 85% with 30 L. He received a L of fluid yesterday and his creatinine is improved. PHYSICAL EXAMINATION: VITAL SIGNS: The blood pressure is 102/59, saturation is 92% on Vapotherm with 30 L and 85%. His respiratory rate is in the low 20s. HEENT: Shows no facial swelling or erythema. CARDIAC: Reveals regular rate and rhythm with normal S1 and S2. LUNGS: Auscultation of lungs reveals crackles at the bases. There is no wheezing. ABDOMEN: Soft and nontender. There is no rebound or guarding. EXTREMITIES: Shows no leg edema or calf tenderness. There is no cyanosis or clubbing. SKIN: Shows no rashes. NEUROLOGICAL: Shows no focal abnormalities. LABORATORY DATA: BUN to creatinine ratio is 42 to 1.26 and the other electrolytes are within normal limits. Total bilirubin is 0.6 and the albumin is 1.5. White blood cell count is . RADIOGRAPHIC DATA: Chest x-ray shows bilateral infiltrates. IMPRESSION: 1. Acute respiratory failure. 2. Viral pneumonia and COVID-19 infection. 3. Diabetes. 4. Acute kidney injury. 5. Hypertension. 6. Peripheral vascular disease. PLAN: 1. Continue to wean Vapotherm. 2. Lasix is on hold. The patient may require additional IV fluids. 3. Continue Lovenox. 4. Complete dexamethasone. 5. Continue to monitor creatinine. Barrett Martinez MD [facility]/MODL /[id number]
[2019-09-17] MEDS ORDERED: LACTATED RINGER'S 1,000 ML INJ ONE (10:30)
[2019-09-17] MEDS: CEFTRIAXONE SOD 1 GM/NS 50 ML 50 ML IV SCH (12:30)
[2019-09-17] MEDS: DEXAMETHASONE 10MG/ML PF INJ IV SCH (14:32)
[2019-09-17] MEDS: DEXMEDETOMIDINE 200MCG/NS 50ML 50 ML IV PRN ×2 (14:54→20:50)
--- NOTE | 2019-09-17 16:25 | NUR ---
dinner bg 36mg/dl 1amp d50% given recheck of bg 185mg/dl
[2019-09-17] MEDS: INSULIN GLARGINE 100 UNITS/ML VIAL SQ SCH (21:00)
[2019-09-18] VITALS (24 sets, daily range): BP systolic 99–134; BP diastolic 58–75
[2019-09-18] MEDS: DEXMEDETOMIDINE 200MCG/NS 50ML 50 ML IV PRN (00:05)
[2019-09-18] MEDS: GABAPENTIN 100 MG CAP PO SCH ×3 (06:16→21:30)
[2019-09-18 06:24] LABS: BASOPHILS % 0.1 % (0.0-1.0); EOSINOPHILS % 0.1 % (0.0-6.0); HEMATOCRIT 30.4 % (38.2-49.6); HEMOGLOBIN 10.2 g/dL (14.0-18.0); LYMPHOCYTES # (AUTO) 0.6 (1.0-3.2); LYMPHOCYTES % 6.8 % (18.0-39.1); MEAN CORPUSCULAR HEMOGLOBIN 30.4 pg (28-32); MEAN CORPUSCULAR HGB CONC 33.6 g/dL (31-35); MEAN CORPUSCULAR VOLUME 90.5 fL (81-99); MONOCYTES # (AUTO) 0.1 (0.2-0.8); MONOCYTES % 1.1 % (4.4-11.3); NEUTROPHILS # (AUTO) 8.4 (2.1-6.9); NEUTROPHILS % 91.5 % (38.7-80.0); PLATELET COUNT 135 x10e3/uL (140-360); RED BLOOD COUNT 3.36 x10e6/uL (4.3-5.7); RED CELL DISTRIBUTION WIDTH 12.5 % (11.7-14.4)
[2019-09-18 06:39] LABS: ALANINE AMINOTRANSFERASE 44 IU/L (0-55); ALBUMIN 1.3 g/dL (3.5-5.0); ALBUMIN/GLOBULIN RATIO 0.3 (0.8-2.0); ALKALINE PHOSPHATASE 91 IU/L (40-150); ANION GAP 12.6 mmol/L (8-16); BLOOD UREA NITROGEN 39 mg/dL (7-26); BUN/CREATININE RATIO 36 (6-25); CARBON DIOXIDE 23 mmol/L (22-29); CHLORIDE 104 mmol/L (98-107); CREATININE, SERUM 1.08 mg/dL (0.72-1.25); EST GLOMERULAR FILTRATION RATE > 60 ML/MIN (60-); GLUCOSE 130 mg/dL (74-118); POTASSIUM 4.6 mmol/L (3.5-5.1); SODIUM 135 mmol/L (136-145)
--- NOTE | 2019-09-18 07:08 | NUR ---
infectious disease progress note 09/18/2019 The patient is still on Vapotherm. He is down to 85% with 30 L. patient remains in intensive care unit He received a L of fluid yesterday and his creatinine is improved. PHYSICAL EXAMINATION: VITAL SIGNS: The blood pressure is 102/59, saturation is 92% on Vapotherm with 30 L and 85%. His respiratory rate is in the low 20s. HEENT: Shows no facial swelling or erythema. CARDIAC: Reveals regular rate and rhythm with normal S1 and S2. LUNGS: Auscultation of lungs reveals crackles at the bases. There is no wheezing. ABDOMEN: Soft and nontender. There is no rebound or guarding. EXTREMITIES: Shows no leg edema or calf tenderness. There is no cyanosis or clubbing. SKIN: Shows no rashes. NEUROLOGICAL: Shows no focal abnormalities. LABORATORY DATA: BUN to creatinine ratio is 42 to 1.26 and the other electrolytes are within normal limits. Total bilirubin is 0.6 and the albumin is 1.5. White blood cell count is . RADIOGRAPHIC DATA: Chest x-ray shows bilateral infiltrates. IMPRESSION: 1. Acute respiratory failure. 2. Viral pneumonia and COVID-19 infection. 3. Diabetes. 4. Acute kidney injury. 5. Hypertension. 6. Peripheral vascular disease. [id number]
[2019-09-18] MEDS: INSULIN LISPRO 100 UNIT/1 ML 3ML VIAL SQ SCH ×7 (07:26→21:00)
--- NOTE | 2019-09-18 08:45 | Diagnostic Imaging Report ---
EXAMINATION: CHEST SINGLE (PORTABLE) INDICATION: Respiratory failure COMPARISON: Multiple prior chest radiographs, most recently of 09/16/2019 FINDINGS: LINES/TUBES:EKG leads overlie the chest. LUNGS:The lungs are moderately inflated. Persistent bilateral multifocal airspace opacities. PLEURA:No pleural effusion or pneumothorax. MEDIASTINUM:The cardiomediastinal silhouette appears unchanged in size and shape. BONES/SOFT TISSUES:No acute osseous injury. ABDOMEN:No free air under the diaphragm. IMPRESSION: No significant interval change. Signed by: Verona Jeffries MD on 09/18/2019 8:41 AM
[2019-09-18] MEDS: ZINC SULFATE 220 MG CAP PO SCH (08:52)
[2019-09-18] MEDS: ASPIRIN 81 MG CHEW TAB PO SCH (08:52)
[2019-09-18] MEDS: ALLOPURINOL 100 MG TAB PO SCH (08:52)
[2019-09-18] MEDS: AZITHROMYCIN 500MG/NS 250 ML 250 ML IV SCH (08:52)
[2019-09-18] MEDS: FINASTERIDE 5 MG TAB PO SCH (08:52)
[2019-09-18] MEDS: ASCORBIC ACID 500 MG TAB PO SCH ×2 (08:52→17:10)
[2019-09-18] MEDS: ENOXAPARIN SOD INJ 40 MG/0.4 ML SYR SC SCH ×2 (08:52→21:30)
[2019-09-18] MEDS: AMLODIPINE BESYLATE 10 MG TAB PO SCH (08:52)
[2019-09-18] MEDS: FAMOTIDINE 20 MG/2 ML VIAL IV SCH ×2 (08:52→21:30)
[2019-09-18 10:06] LABS: LYMPHOCYTES % (MANUAL) 3 % (19-48); MONOCYTES % (MANUAL) 1 % (3.4-9.0); NEUTROPHILS % (MANUAL) 96 % (40-74)
[2019-09-18 10:08] LABS: PLATELET ESTIMATE SLIGHTLY DECREASED; PLATELET MORPHOLOGY COMMENT RARE EDTA CLUMPING; RBC MORPHOLOGY COMMENT NORMAL
--- NOTE | 2019-09-18 15:00 | NUR ---
PRECEDEX ON STANDBY WILL MONITOR PT CLOSELY
--- NOTE | 2019-09-18 15:36 | Progress Note ---
DATE: 09/18/2019 Pulmonary Critical Care Progress Note. SUBJECTIVE: The patient feels better. He has less cough and less dyspnea. He is still on Precedex. He is still on Vapotherm at 70% with 35 L. PHYSICAL EXAMINATION: VITAL SIGNS: Blood pressure is 102/60, saturation is 95% on Vapotherm, pulse is 50 to 60. HEENT: Shows no facial swelling or erythema. CARDIAC: Reveals regular rate and rhythm with normal S1, S2. LUNGS: Auscultation of lungs reveals rhonchorous breath sounds bilaterally. There is no wheezing. ABDOMEN: Soft and nontender. There is no rebound or guarding. EXTREMITIES: Shows no leg edema or calf tenderness. There is no cyanosis or clubbing. SKIN: Shows no rashes. NEUROLOGIC: Shows no focal abnormalities. LABORATORY DATA: BUN to creatinine ratio is 39 to 1.08 and the other electrolytes within normal limits. The white blood cell count is 9.1, hemoglobin is 10.2. The platelet count is 135. RADIOGRAPHIC DATA: Chest x-ray shows bilateral infiltrates. IMPRESSION: 1. COVID-19 and viral pneumonia. 2. Acute respiratory failure. 3. Acute kidney injury. 4. Diabetes. 5. Hypertension. 6. Peripheral vascular disease. PLAN: 1. Continue to wean Vapotherm. 2. Wean Precedex. 3. Continue gentle hydration. 4. Continue to monitor creatinine. 5. Continue dexamethasone. Barrett Martinez MD [facility]/MODL /[id number]
[2019-09-18] MEDS: DEXAMETHASONE 10MG/ML PF INJ IV SCH (15:54)
[2019-09-18] MEDS ORDERED: FUROSEMIDE INJ 10 MG/ML 2 ML VIAL IV ONE (16:00)
--- NOTE | 2019-09-18 17:11 | Progress Note ---
DATE: SUBJECTIVE: Mr. Contreras admitted to Intensive Care Unit, this is day #10. The patient who is currently comfortable. Down on Vapotherm, but improving. OBJECTIVE: HEENT: He is not icteric. NECK: Supple. CHEST: Few crackles bilaterally. HEART: S1 and S2. No murmur. ABDOMEN: Soft. IMPRESSION: Respiratory failure, slowly getting better, coronavirus disease-19 pneumonia, diabetes mellitus, acute kidney injury better, peripheral vascular disease. White count is 9.1, hemoglobin of 10. Sodium 135, potassium of 4.6, albumin of 1.3. He is currently on Lovenox, amlodipine, Neurontin. Finish 10 days of dexamethasone. Clinically doing better. Ruth Mott MD [facility]/MODL /[id number]
[2019-09-18] MEDS: INSULIN GLARGINE 100 UNITS/ML VIAL SQ SCH (22:00)
[2019-09-19] VITALS (22 sets, daily range): BP systolic 101–133; BP diastolic 66–76
[2019-09-19] MEDS: GUAIFENESIN/CODEINE 10 ML CUP PO PRN ×2 (01:13→14:38)
[2019-09-19 05:48] LABS: BASOPHILS % 0.1 % (0.0-1.0); HEMATOCRIT 33.2 % (38.2-49.6); HEMOGLOBIN 10.7 g/dL (14.0-18.0); LYMPHOCYTES # (AUTO) 0.7 (1.0-3.2); LYMPHOCYTES % 6.5 % (18.0-39.1); MEAN CORPUSCULAR HEMOGLOBIN 29.6 pg (28-32); MEAN CORPUSCULAR HGB CONC 32.2 g/dL (31-35); MONOCYTES # (AUTO) 0.1 (0.2-0.8); MONOCYTES % 1.3 % (4.4-11.3); NEUTROPHILS # (AUTO) 9.8 (2.1-6.9); NEUTROPHILS % 91.7 % (38.7-80.0); PLATELET COUNT 141 x10e3/uL (140-360); RED BLOOD COUNT 3.61 x10e6/uL (4.3-5.7); RED CELL DISTRIBUTION WIDTH 12.8 % (11.7-14.4)
[2019-09-19] MEDS: GABAPENTIN 100 MG CAP PO SCH (06:00)
[2019-09-19] MEDS: INSULIN LISPRO 100 UNIT/1 ML 3ML VIAL SQ SCH ×7 (07:30→21:41)
[2019-09-19 08:53] LABS: ALBUMIN 1.5 g/dL (3.5-5.0); ALBUMIN/GLOBULIN RATIO 0.3 (0.8-2.0); ANION GAP 12.9 mmol/L (8-16); CALCIUM 8.2 mg/dL (8.4-10.2); CREATININE, SERUM 1.23 mg/dL (0.72-1.25); POTASSIUM 4.9 mmol/L (3.5-5.1)
[2019-09-19] MEDS: ASPIRIN 81 MG CHEW TAB PO SCH (09:26)
[2019-09-19] MEDS: FAMOTIDINE 20 MG/2 ML VIAL IV SCH ×2 (09:26→21:37)
[2019-09-19] MEDS: AMLODIPINE BESYLATE 10 MG TAB PO SCH (09:28)
[2019-09-19] MEDS: ENOXAPARIN SOD INJ 40 MG/0.4 ML SYR SC SCH ×2 (09:28→21:38)
[2019-09-19] MEDS: ZINC SULFATE 220 MG CAP PO SCH (09:28)
[2019-09-19] MEDS: ALLOPURINOL 100 MG TAB PO SCH (09:28)
[2019-09-19] MEDS: ASCORBIC ACID 500 MG TAB PO SCH ×2 (09:28→17:47)
[2019-09-19] MEDS: FINASTERIDE 5 MG TAB PO SCH (09:28)
[2019-09-19 10:33] LABS: BAND NEUTROPHILS % (MANUAL) 4 %; LYMPHOCYTES % (MANUAL) 4 % (19-48); MONOCYTES % (MANUAL) 7 % (3.4-9.0); NEUTROPHILS % (MANUAL) 85 % (40-74)
--- NOTE | 2019-09-19 11:20 | Progress Note ---
DATE: SUBJECTIVE: The patient is feeling better overall. He has less dyspnea and less cough. He is not having any chest pain. He remains on Vapotherm at 60% with 35 L. OBJECTIVE: VITAL SIGNS: His blood pressure is 128/74. Saturation is in the mid 90s. HEENT: No facial swelling or erythema. CARDIAC: Regular rate and rhythm with normal S1, S2. LUNGS: Auscultation of lungs reveals crackles in the bases. There is no wheezing. ABDOMEN: Soft, nontender. There is no rebound or guarding. EXTREMITIES: No leg edema or calf tenderness. LABORATORY DATA: White blood cell count is 10.6 and hemoglobin is 10.7. The platelet count is 141. The BUN to creatinine ratio is 50 to 1.23 and the blood sugars are 153. Albumin is 1.5. IMPRESSION: 1. Acute respiratory failure. 2. Coronavirus disease-19 and viral pneumonia. 3. Acute kidney injury. 4. Diabetes. 5. Hypertension. 6. Peripheral vascular disease. PLAN: 1. Continue to wean Vapotherm. 2. Wean Precedex. 3. Continue to monitor creatinine. 4. Continue to adjust insulin as needed to control blood sugars. 5. Albumin with Lasix. Barrett Martinez MD [facility]/MODL /[id number]
[2019-09-19] MEDS ORDERED: FUROSEMIDE INJ 10 MG/ML 2 ML VIAL IV ONE (12:15)
[2019-09-19] MEDS: ALBUMIN 25% 12.5GM 50ML 100 ML IV SCH ×2 (12:44→21:34)
[2019-09-19] MEDS ORDERED: ALBUMIN 25% 25GM 100ML 0.25 GM/ML BTL IV SCH (14:00)
[2019-09-19] MEDS: INSULIN GLARGINE 100 UNITS/ML VIAL SQ SCH (21:39)
[2019-09-20] VITALS (21 sets, daily range): BP systolic 109–150; BP diastolic 67–85
[2019-09-20 05:28] LABS: BASOPHILS % 0.1 % (0.0-1.0); HEMATOCRIT 27.5 % (38.2-49.6); HEMOGLOBIN 9.3 g/dL (14.0-18.0); LYMPHOCYTES % 10.6 % (18.0-39.1); MEAN CORPUSCULAR HGB CONC 33.8 g/dL (31-35); MEAN CORPUSCULAR VOLUME 88.7 fL (81-99); MONOCYTES # (AUTO) 0.2 (0.2-0.8); MONOCYTES % 1.8 % (4.4-11.3); NEUTROPHILS # (AUTO) 8.4 (2.1-6.9); PLATELET COUNT 146 x10e3/uL (140-360); RED CELL DISTRIBUTION WIDTH 12.8 % (11.7-14.4)
[2019-09-20 05:48] LABS: ALBUMIN 2.7 g/dL (3.5-5.0); ALBUMIN/GLOBULIN RATIO 0.6 (0.8-2.0); ANION GAP 14.1 mmol/L (8-16); CALCIUM 8.4 mg/dL (8.4-10.2); CREATININE, SERUM 1.32 mg/dL (0.72-1.25); POTASSIUM 4.1 mmol/L (3.5-5.1)
[2019-09-20] MEDS: INSULIN LISPRO 100 UNIT/1 ML 3ML VIAL SQ SCH ×7 (07:30→20:45)
[2019-09-20] MEDS: ZINC SULFATE 220 MG CAP PO SCH (09:00)
[2019-09-20] MEDS: FAMOTIDINE 20 MG/2 ML VIAL IV SCH ×2 (10:21→21:00)
[2019-09-20] MEDS: ASPIRIN 81 MG CHEW TAB PO SCH (10:21)
[2019-09-20] MEDS: FINASTERIDE 5 MG TAB PO SCH (10:25)
[2019-09-20] MEDS: ALLOPURINOL 100 MG TAB PO SCH (10:26)
[2019-09-20] MEDS: AMLODIPINE BESYLATE 10 MG TAB PO SCH (10:26)
[2019-09-20] MEDS: ENOXAPARIN SOD INJ 40 MG/0.4 ML SYR SC SCH ×2 (11:48→21:00)
[2019-09-20] MEDS: ASCORBIC ACID 500 MG TAB PO SCH ×2 (11:48→19:23)
[2019-09-20] MEDS ORDERED: GUAIFENESIN/CODEINE 10 ML CUP ONE (12:00)
[2019-09-20] MEDS: ACETAMINOPHEN 325 MG TAB PO PRN (15:45)
[2019-09-20] MEDS ORDERED: ACETAMINOPHEN 325 MG TAB ONE (15:45)
--- NOTE | 2019-09-20 17:26 | NUR ---
Nutrition Screen Note RD Recommendation for Physician: - Continue current diet as ordered - If PO intake <50% of meals, offer Glucerna nutrition supplement Plan of Care: RD following monitoring for tolerance and adequacy Nutrition reason for involvement: follow up Primary Diagnose(s): Hyperglycemia, Pneumonia due to COVID - 19 PMH: T2DM, HTN, overweight/obesity, Gout, dyslipidemia, DM pneuropathy, reflux, Ht:67 in Wt:217 lbs (09/18) 220.25 lbs (09/13) BMI:34.1 kg/m2 IBW: [address] Assessment: 09/19: Follow up. Unable to speak to pt. Pt has varied intake. It is recorded pt consumed 0% of meals on 09/16 and was previously consuming 25-100% of meals. If PO intake <50% of meals, recommend to offer the pt a Glucerna nutrition supplement. Will continue to monitor. (09/13) Initial encounter with patient. Diet Hx: Pt denies any known food allergies. Medications: reviewed: on Vitamin C, zinc sulfate, lasix. Pt was eating breakfast at time of visit and only had C/O coughing due to COVID-19 pneumonia. Pt denies any difficulty chewing or swallowing nor has any nausea or vomiting. Pt reported a good PO intake [employer]. No significant wt changes. Pt is able to feed himself. Biochemical data reviewed. Hyperglycemia POC 279 on 09/12 Current Diet: 1800 ADA Malnutrition Evaluation (09/14/2019) The patient does not meet criteria for a specified degree of malnutrition at this time. Will re-evaluate at follow-up as appropriate. Diet Education Needs Assessment: RD is available for diet education as needed Diet tolerance: unable to assess Nutrition Care Level: low Signed: Nica Rodriguez, RD, LD
--- NOTE | 2019-09-20 18:31 | Progress Note ---
DATE: Pulmonary Progress Note. SUBJECTIVE: The patient remains on Vapotherm. He is on 35 L and 80% FiO2. He is not complaining of any chest pain. He has been in no nausea or vomiting. He has no other complaints. PHYSICAL EXAMINATION: VITAL SIGNS: The patient is afebrile, blood pressure is 128/68, saturation is 94% on Vapotherm. HEENT: Shows no facial swelling or erythema. CARDIAC: Reveals regular rate and rhythm with normal S1, S2. LUNGS: Auscultation of lungs shows decreased breath sounds at the bases. There is no wheezing. ABDOMEN: Soft and nontender. There is no rebound or guarding. EXTREMITIES: Shows no leg edema or calf tenderness. There is no cyanosis or clubbing. SKIN: Shows no rashes. NEUROLOGICAL: Shows no focal abnormalities. LABORATORY DATA: White blood cell count is 9.6 and hemoglobin is 9.3, the platelet count is 146. The BUN to creatinine ratio is 57 to 1.32. Other electrolytes are within normal limits. The blood sugar is 270. Albumin is 2.7. IMPRESSION: 1. Acute respiratory failure. 2. COVID-19 and viral pneumonia. 3. Kidney injury. 4. Diabetes. 5. Hypertension. PLAN: 1. Continue to wean Vapotherm. 2. Continue to monitor and control blood sugars. 3. Monitor creatinine. Barrett Martinez MD [facility]/MODL /[id number]
[2019-09-20] MEDS: INSULIN GLARGINE 100 UNITS/ML VIAL SQ SCH (20:46)
[2019-09-20] MEDS: GUAIFENESIN/CODEINE 10 ML CUP PO PRN (21:10)
[2019-09-21] VITALS (20 sets, daily range): BP systolic 107–155; BP diastolic 66–89
[2019-09-21] MEDS: GUAIFENESIN/CODEINE 10 ML CUP PO PRN ×4 (01:41→23:38)
[2019-09-21 05:50] LABS: BASOPHILS % 0.2 % (0.0-1.0); EOSINOPHILS # (AUTO) 0.1 (0.0-0.4); EOSINOPHILS % 0.8 % (0.0-6.0); HEMATOCRIT 24.8 % (38.2-49.6); HEMOGLOBIN 8.3 g/dL (14.0-18.0); LYMPHOCYTES # (AUTO) 1.9 (1.0-3.2); LYMPHOCYTES % 14.6 % (18.0-39.1); MEAN CORPUSCULAR HEMOGLOBIN 30.6 pg (28-32); MEAN CORPUSCULAR HGB CONC 33.5 g/dL (31-35); MEAN CORPUSCULAR VOLUME 91.5 fL (81-99); MONOCYTES # (AUTO) 0.2 (0.2-0.8); MONOCYTES % 1.6 % (4.4-11.3); NEUTROPHILS # (AUTO) 10.8 (2.1-6.9); PLATELET COUNT 128 x10e3/uL (140-360); RED BLOOD COUNT 2.71 x10e6/uL (4.3-5.7); RED CELL DISTRIBUTION WIDTH 13.2 % (11.7-14.4)
[2019-09-21 06:07] LABS: ALBUMIN 2.3 g/dL (3.5-5.0); ALBUMIN/GLOBULIN RATIO 0.5 (0.8-2.0); ANION GAP 13.8 mmol/L (8-16); CALCIUM 8.1 mg/dL (8.4-10.2); CREATININE, SERUM 1.31 mg/dL (0.72-1.25); POTASSIUM 3.8 mmol/L (3.5-5.1)
[2019-09-21] MEDS: INSULIN LISPRO 100 UNIT/1 ML 3ML VIAL SQ SCH ×7 (08:44→20:00)
[2019-09-21] MEDS: ZINC SULFATE 220 MG CAP PO SCH (09:00)
--- NOTE | 2019-09-21 09:57 | Diagnostic Imaging Report ---
EXAMINATION: CHEST SINGLE (PORTABLE) INDICATION: resp failure COMPARISON: Multiple prior chest x-ray examinations most recent dated 09/18/2019 FINDINGS: AP view TUBES and LINES: None. LUNGS/PLEURA: Lungs are well inflated. There are improved bilateral patchy opacities compatible with improving pneumonia, ARDS or edema.. There is no pleural effusion or pneumothorax. HEART AND MEDIASTINUM: The cardiomediastinal silhouette is unremarkable. BONES AND SOFT TISSUES: No acute osseous lesion. Soft tissues are unremarkable. UPPER ABDOMEN: No free air under the diaphragm. IMPRESSION: Improved bilateral patchy opacities compatible with improving pneumonia, ARDS or edema. Signed by: Enrico Perla MD on 09/21/2019 9:54 AM
[2019-09-21] MEDS: ASPIRIN 81 MG CHEW TAB PO SCH (10:18)
[2019-09-21] MEDS: FINASTERIDE 5 MG TAB PO SCH (10:18)
[2019-09-21] MEDS: ALLOPURINOL 100 MG TAB PO SCH (10:18)
[2019-09-21] MEDS: AMLODIPINE BESYLATE 10 MG TAB PO SCH (10:18)
[2019-09-21] MEDS: FAMOTIDINE 20 MG/2 ML VIAL IV SCH ×2 (10:18→19:56)
[2019-09-21] MEDS: ASCORBIC ACID 500 MG TAB PO SCH ×2 (10:18→17:45)
[2019-09-21] MEDS: ENOXAPARIN SOD INJ 40 MG/0.4 ML SYR SC SCH ×2 (10:19→19:56)
--- NOTE | 2019-09-21 12:19 | Progress Note ---
DATE: SUBJECTIVE: The patient is less symptomatic. His breathing is overall improved. He has less cough. His Vapotherm is decreased to 25 L with 65%. PHYSICAL EXAMINATION: VITAL SIGNS: The blood pressure is 149/82, saturation is 93%. HEENT: Shows no facial swelling or erythema. CARDIAC: Reveals regular rate and rhythm with normal S1 and S2. LUNGS: Auscultation of lungs reveals rhonchorous breath sounds bilaterally. There is no wheezing. ABDOMEN: Soft and nontender. There is no rebound or guarding. EXTREMITIES: Shows no leg edema or calf tenderness. There is no cyanosis or clubbing. SKIN: Shows no rashes. LABORATORY DATA: White blood cell count is 13.1, hemoglobin is 8.3, and platelet count is 128. BUN to creatinine ratio is 42 to 1.31. Blood sugar is 205 and other electrolytes are within normal limits. RADIOGRAPHIC DATA: Chest x-ray shows improvement in bilateral infiltrates. IMPRESSION: 1. Acute respiratory failure. 2. Viral pneumonia and COVID-19 infection. 3. Acute kidney injury. 4. Diabetes. 5. Hypertension. PLAN: 1. Continue to wean Vapotherm. 2. Out of bed as tolerated. 3. Continue to monitor and control blood sugars. 4. Continue Lovenox. 5. Complete Decadron. Barrett Martinez MD [facility]/MODL /[id number]
[2019-09-21] MEDS: INSULIN GLARGINE 100 UNITS/ML VIAL SQ SCH (20:00)
[2019-09-22] VITALS (28 sets, daily range): BP systolic 107–134; BP diastolic 48–89
[2019-09-22 05:54] LABS: BASOPHILS % 0.2 % (0.0-1.0); EOSINOPHILS # (AUTO) 0.2 (0.0-0.4); EOSINOPHILS % 1.7 % (0.0-6.0); HEMATOCRIT 23.3 % (38.2-49.6); HEMOGLOBIN 7.5 g/dL (14.0-18.0); LYMPHOCYTES # (AUTO) 2.3 (1.0-3.2); LYMPHOCYTES % 20.4 % (18.0-39.1); MEAN CORPUSCULAR HEMOGLOBIN 29.2 pg (28-32); MEAN CORPUSCULAR HGB CONC 32.2 g/dL (31-35); MEAN CORPUSCULAR VOLUME 90.7 fL (81-99); MONOCYTES # (AUTO) 0.2 (0.2-0.8); MONOCYTES % 1.9 % (4.4-11.3); NEUTROPHILS # (AUTO) 8.5 (2.1-6.9); NEUTROPHILS % 75.2 % (38.7-80.0); PLATELET COUNT 135 x10e3/uL (140-360); RED BLOOD COUNT 2.57 x10e6/uL (4.3-5.7); RED CELL DISTRIBUTION WIDTH 13.3 % (11.7-14.4)
[2019-09-22 06:20] LABS: ALBUMIN 2.1 g/dL (3.5-5.0); ALBUMIN/GLOBULIN RATIO 0.5 (0.8-2.0); ANION GAP 10.7 mmol/L (8-16); CALCIUM 7.8 mg/dL (8.4-10.2); CREATININE, SERUM 1.3 mg/dL (0.72-1.25); POTASSIUM 3.7 mmol/L (3.5-5.1)
[2019-09-22] MEDS: INSULIN LISPRO 100 UNIT/1 ML 3ML VIAL SQ SCH ×7 (07:29→20:18)
[2019-09-22] MEDS: AMLODIPINE BESYLATE 10 MG TAB PO SCH (08:33)
[2019-09-22] MEDS: ENOXAPARIN SOD INJ 40 MG/0.4 ML SYR SC SCH ×2 (08:33→20:18)
[2019-09-22] MEDS: ASPIRIN 81 MG CHEW TAB PO SCH (08:33)
[2019-09-22] MEDS: FINASTERIDE 5 MG TAB PO SCH (08:33)
[2019-09-22] MEDS: ZINC SULFATE 220 MG CAP PO SCH (08:33)
[2019-09-22] MEDS: ALLOPURINOL 100 MG TAB PO SCH (08:33)
[2019-09-22] MEDS: ASCORBIC ACID 500 MG TAB PO SCH ×2 (08:33→16:07)
[2019-09-22] MEDS: FAMOTIDINE 20 MG/2 ML VIAL IV SCH ×2 (08:33→20:18)
[2019-09-22] MEDS: GUAIFENESIN/CODEINE 10 ML CUP PO PRN (08:34)
[2019-09-22 09:29] LABS: EOSINOPHILS % (MANUAL) 1 % (0-7); LYMPHOCYTES % (MANUAL) 19 % (19-48); MONOCYTES % (MANUAL) 1 % (3.4-9.0); NEUTROPHILS % (MANUAL) 79 % (40-74)
[2019-09-22] MEDS ORDERED: LACTATED RINGER'S 1,000 ML INJ ONE (13:00)
--- NOTE | 2019-09-22 13:13 | Progress Note ---
DATE: Pulmonary Progress Note SUBJECTIVE: The patient is afebrile. He is not having any chest pain. He is having no nausea or vomiting. He feels slightly better. PHYSICAL EXAMINATION: VITAL SIGNS: The blood pressure is 122/67 and saturation is 98% on 25 L with 60%. HEENT: Shows no facial swelling or erythema. CARDIAC: Reveals regular rate and rhythm with normal S1 and S2. LUNGS: Auscultation of lungs reveals rhonchorous breath sounds bilaterally. There is no wheezing. ABDOMEN: Soft and nontender. There is no rebound or guarding. EXTREMITIES: Shows no leg edema or calf tenderness. There is no cyanosis or clubbing. SKIN: Shows no rashes. NEUROLOGICAL: Shows no focal abnormalities. LABORATORY DATA: BUN to creatinine ratio is 33 to 1.3, and other electrolytes are within normal limits. The albumin is 2.1. Hemoglobin is 7.5 and platelet count of 135. RADIOGRAPHIC DATA: Shows improved bilateral infiltrates. IMPRESSION: 1. Acute respiratory failure. 2. Viral pneumonia and COVID-19 infection. 3. Acute kidney injury. 4. Diabetes. 5. Hypertension. PLAN: 1. Continue to wean Vapotherm. 2. Continue to monitor and control blood sugars. 3. Continue Lovenox. 4. Continue Decadron. Barrett Martinez MD [facility]/MODL /[id number]
[2019-09-22] MEDS: INSULIN GLARGINE 100 UNITS/ML VIAL SQ SCH (20:18)
[2019-09-23] VITALS (27 sets, daily range): BP systolic 102–151; BP diastolic 60–80
[2019-09-23 06:33] LABS: BASOPHILS % 0.1 % (0.0-1.0); EOSINOPHILS # (AUTO) 0.2 (0.0-0.4); HEMATOCRIT 22.2 % (38.2-49.6); HEMOGLOBIN 7.1 g/dL (14.0-18.0); LYMPHOCYTES # (AUTO) 2.4 (1.0-3.2); LYMPHOCYTES % 23.8 % (18.0-39.1); MEAN CORPUSCULAR HEMOGLOBIN 29.2 pg (28-32); MEAN CORPUSCULAR VOLUME 91.4 fL (81-99); MONOCYTES # (AUTO) 0.1 (0.2-0.8); MONOCYTES % 1.4 % (4.4-11.3); NEUTROPHILS # (AUTO) 7.1 (2.1-6.9); NEUTROPHILS % 72.1 % (38.7-80.0); PLATELET COUNT 135 x10e3/uL (140-360); RED BLOOD COUNT 2.43 x10e6/uL (4.3-5.7); RED CELL DISTRIBUTION WIDTH 13.3 % (11.7-14.4)
[2019-09-23 06:46] LABS: ANION GAP 12.5 mmol/L (8-16); BLOOD UREA NITROGEN 22 mg/dL (7-26); BUN/CREATININE RATIO 20 (6-25); CALCIUM 7.7 mg/dL (8.4-10.2); CARBON DIOXIDE 25 mmol/L (22-29); CHLORIDE 109 mmol/L (98-107); CREATININE, SERUM 1.09 mg/dL (0.72-1.25); EST GLOMERULAR FILTRATION RATE > 60 ML/MIN (60-); GLUCOSE 65 mg/dL (74-118); POTASSIUM 3.5 mmol/L (3.5-5.1); SODIUM 143 mmol/L (136-145)
[2019-09-23] MEDS: INSULIN LISPRO 100 UNIT/1 ML 3ML VIAL SQ SCH ×7 (07:30→20:05)
[2019-09-23] MEDS: FINASTERIDE 5 MG TAB PO SCH (08:01)
[2019-09-23] MEDS: ASPIRIN 81 MG CHEW TAB PO SCH (08:01)
[2019-09-23] MEDS: ZINC SULFATE 220 MG CAP PO SCH (08:01)
[2019-09-23] MEDS: FAMOTIDINE 20 MG/2 ML VIAL IV SCH ×2 (08:01→20:18)
[2019-09-23] MEDS: ALLOPURINOL 100 MG TAB PO SCH (08:01)
[2019-09-23] MEDS: ENOXAPARIN SOD INJ 40 MG/0.4 ML SYR SC SCH (08:01)
[2019-09-23] MEDS: ASCORBIC ACID 500 MG TAB PO SCH ×2 (08:01→17:23)
[2019-09-23] MEDS: AMLODIPINE BESYLATE 10 MG TAB PO SCH (08:01)
[2019-09-23 08:56] LABS: LYMPHOCYTES % (MANUAL) 22 % (19-48); MONOCYTES % (MANUAL) 1 % (3.4-9.0); NEUTROPHILS % (MANUAL) 77 % (40-74)
[2019-09-23 08:57] LABS: PLATELET ESTIMATE SLIGHTLY DECREASED; PLATELET MORPHOLOGY COMMENT NORMAL; RBC MORPHOLOGY COMMENT NORMAL
[2019-09-23] MEDS ORDERED: ACETAMINOPHEN 325 MG TAB PO STA (10:30)
[2019-09-23] MEDS ORDERED: SODIUM CHLORIDE 0.9% 250ML 250 ML IV SCH (10:30)
[2019-09-23] MEDS ORDERED: PANTOPRAZOLE 40 MG 10ML VIAL IV SCH (12:15)
[2019-09-23 12:42] LABS: INR 1.12; PROTHROMBIN TIME 15.1 seconds (11.9-14.5)
[2019-09-23 12:43] LABS: PARTIAL THROMBOPLASTIN TIME 36.9 seconds (23.8-35.5)
[2019-09-23] MEDS: PANTOPRAZOL 40MG/SOD CHL 0.9% 50 ML IV SCH ×3 (13:23→23:07)
--- NOTE | 2019-09-23 13:38 | Progress Note ---
DATE: Pulmonary Critical Care Progress Note. The patient had some melenic stools. He is also complaining of some dyspepsia. PHYSICAL EXAMINATION: VITAL SIGNS: The blood pressure is 114/71, saturation is 97% on a Vapotherm with 20 L and 65%. HEENT: Shows no facial swelling or erythema. CARDIAC: Reveals regular rate and rhythm with normal S1, S2. LUNGS: Auscultation of lungs reveals crackles at the bases. There is no wheezing. ABDOMEN: Soft and nontender. There is no rebound or guarding. EXTREMITIES: Shows no leg edema or calf tenderness. There is no cyanosis or clubbing. SKIN: Shows no rashes. NEUROLOGICAL: Shows no focal abnormalities. LABORATORY DATA: White blood cell count is 9.8 and hemoglobin is 7.1, the platelet count is 135. The BUN to creatinine ratio is 22 to 1.09. The other electrolytes are within normal limits. RADIOGRAPHIC DATA: Chest x-ray shows bilateral infiltrates. IMPRESSION: 1. Anemia secondary to acute blood loss. 2. Upper GI bleed. 3. Acute respiratory failure. 4. Viral pneumonia and COVID-19 infection. 5. Diabetes. 6. Hypertension. PLAN: 1. Begin Protonix drip. 2. GI evaluation with possible endoscopy. 3. Continue to wean Vapotherm. 4. Continue to monitor and control blood sugars. 5. Hold Lovenox. 6. Packed red blood cells. Barrett Martinez MD [facility]/MODL /[id number]
[2019-09-23] MEDS: INSULIN GLARGINE 100 UNITS/ML VIAL SQ SCH (20:05)
[2019-09-23] MEDS ORDERED: PHYTONADIONE 10 MG/ML AMP SC STA (23:50)
[2019-09-24] VITALS (29 sets, daily range): BP systolic 121–147; BP diastolic 61–75
[2019-09-24] MEDS: GUAIFENESIN/CODEINE 10 ML CUP PO PRN (00:45)
[2019-09-24] MEDS: PANTOPRAZOL 40MG/SOD CHL 0.9% 50 ML IV SCH ×4 (03:23→19:58)
[2019-09-24] MEDS: ACETAMINOPHEN 325 MG TAB PO PRN (03:41)
[2019-09-24 05:39] LABS: BASOPHILS % 0.1 % (0.0-1.0); EOSINOPHILS # (AUTO) 0.2 (0.0-0.4); EOSINOPHILS % 2.1 % (0.0-6.0); LYMPHOCYTES # (AUTO) 1.6 (1.0-3.2); MEAN CORPUSCULAR HEMOGLOBIN 29.3 pg (28-32); MEAN CORPUSCULAR HGB CONC 32.2 g/dL (31-35); MEAN CORPUSCULAR VOLUME 91.1 fL (81-99); MONOCYTES # (AUTO) 0.2 (0.2-0.8); MONOCYTES % 2.2 % (4.4-11.3); NEUTROPHILS # (AUTO) 5.2 (2.1-6.9); NEUTROPHILS % 72.6 % (38.7-80.0); PLATELET COUNT 116 x10e3/uL (140-360); RED BLOOD COUNT 2.25 x10e6/uL (4.3-5.7); RED CELL DISTRIBUTION WIDTH 13.3 % (11.7-14.4)
[2019-09-24 05:50] LABS: HEMATOCRIT 20.5 % (38.2-49.6); HEMOGLOBIN 6.6 g/dL (14.0-18.0)
--- NOTE | 2019-09-24 05:50 | NUR ---
pt tolerating blood transfusion. increased rate to 100ml/hr. will continue to monitor.
[2019-09-24 06:01] LABS: ALANINE AMINOTRANSFERASE 40 IU/L (0-55); ALBUMIN 1.6 g/dL (3.5-5.0); ALBUMIN/GLOBULIN RATIO 0.4 (0.8-2.0); ALKALINE PHOSPHATASE 89 IU/L (40-150); ANION GAP 11.4 mmol/L (8-16); BLOOD UREA NITROGEN 17 mg/dL (7-26); BUN/CREATININE RATIO 15 (6-25); CALCIUM 7.3 mg/dL (8.4-10.2); CARBON DIOXIDE 25 mmol/L (22-29); CHLORIDE 110 mmol/L (98-107); CREATININE, SERUM 1.15 mg/dL (0.72-1.25); EST GLOMERULAR FILTRATION RATE > 60 ML/MIN (60-); GLUCOSE 74 mg/dL (74-118); POTASSIUM 3.4 mmol/L (3.5-5.1); SODIUM 143 mmol/L (136-145)
[2019-09-24 06:17] LABS: FERRITIN 1598.32 ng/mL (21.81-274.66)
[2019-09-24] MEDS: INSULIN LISPRO 100 UNIT/1 ML 3ML VIAL SQ SCH ×7 (07:30→20:36)
[2019-09-24] MEDS: ASCORBIC ACID 500 MG TAB PO SCH (07:56)
[2019-09-24] MEDS: FINASTERIDE 5 MG TAB PO SCH (07:56)
[2019-09-24] MEDS: ZINC SULFATE 220 MG CAP PO SCH (07:56)
[2019-09-24] MEDS: ALLOPURINOL 100 MG TAB PO SCH (07:56)
[2019-09-24] MEDS: AMLODIPINE BESYLATE 10 MG TAB PO SCH (07:56)
[2019-09-24] MEDS: FAMOTIDINE 20 MG/2 ML VIAL IV SCH ×2 (07:56→20:32)
--- NOTE | 2019-09-24 08:14 | Diagnostic Imaging Report ---
Examination: Single AP view of the chest. COMPARISON: Portable chest 09/21/2019 INDICATION: Respiratory failure IMPRESSION: 1. Lines and Tubes: None 2. Lungs are hypoinflated. Slight worsening of right lower lobe opacities, which are now more confluent, with development of air bronchograms. Left-sided predominantly interstitial opacities are unchanged. 3. Prominence of the cardiac silhouette, which may be partly due to AP projection. Pulmonary vasculature is normal. 4. No acute bony abnormalities. Signed by: Dr. Dave Michel M.D. on 09/24/2019 8:11 AM
--- NOTE | 2019-09-24 09:37 | Progress Note ---
DATE: SUBJECTIVE: The patient started receiving packed red blood cells early this morning. He was started on Protonix drip yesterday and evaluated by Gastroenterology. His Vapotherm is down to 20 L with 50% FiO2. He did have a non-rebreather over the top of it. PHYSICAL EXAMINATION: VITAL SIGNS: The patient's blood pressure 145/72, saturation is 96%, and the pulse is 80. The T-max is 100. HEENT: Shows no facial swelling or erythema. CARDIAC: Reveals regular rate and rhythm with normal S1 and S2. LUNGS: Auscultation of lungs reveals rhonchorous breath sounds bilaterally. There is no wheezing. ABDOMEN: Soft and nontender. There is no rebound or guarding. EXTREMITIES: Shows no leg edema or calf tenderness. There is no cyanosis or clubbing. SKIN: Shows no rashes. NEUROLOGICAL: Shows no focal abnormalities. LABORATORY DATA: BUN to creatinine ratio is 17 to 1.15. Other electrolytes are within normal limits. Albumin is 1.6. RADIOGRAPHIC DATA: Chest x-ray shows slight increase in right lower lobe opacity. IMPRESSION: 1. Anemia secondary to acute blood loss. 2. Upper gastrointestinal bleed. 3. Acute respiratory failure. 4. Viral pneumonia and COVID-19 infection. 5. Diabetes. 6. Hypertension. PLAN: 1. Continue current Protonix drip. 2. Repeat CBC after transfusion. 3. Continue insulin as needed. 4. Monitor fevers and white count, and restart antibiotics if needed. 5. Wean off Vapotherm with potential transfer out of the intensive care unit. Barrett Martinez MD [facility]/MODL /[id number]
[2019-09-24] MEDS: IRON SUCROSE 100 MG in SODIUM CHLORIDE 0.9% 100 ML 100 ML IV SCH (13:19)
--- NOTE | 2019-09-24 15:55 | Progress Note ---
DATE: SUBJECTIVE: Mr. Contreras remains in intensive care unit, but he looks better. He is going to receive 2 units of blood. The patient, who is on Protonix. He was evaluated by Gastroenterology. He is on Vapotherm 20 L, FiO2 50%. The patient is currently alert and oriented. REVIEW OF SYSTEMS: Otherwise, he is just weak and short of breath. OBJECTIVE: HEENT: He is not icteric. NECK: Supple. CHEST: Clear. HEART: S1 and S2. No S3, S4, or murmurs. ABDOMEN: Soft. Bowel sounds present. No tenderness. EXTREMITIES: No edema. SKIN: No rash. IMPRESSION: 1. Anemia secondary to acute gastrointestinal bleed. 2. Respiratory failure. 3. Viral pneumonia. 4. . 5. Hypertension. He dropped his hemoglobin to 6.6. I am going to stop his vitamin C and zinc, and hold his anticoagulation as well as steroid. While we will continue workup for GI bleed. MD DARIN Harrison/MODL /[id number]
[2019-09-24] MEDS: INSULIN GLARGINE 100 UNITS/ML VIAL SQ SCH (20:37)
[2019-09-25] VITALS (34 sets, daily range): BP systolic 94–151; BP diastolic 54–106
[2019-09-25 05:01] LABS: BASOPHILS % 0.1 % (0.0-1.0); EOSINOPHILS # (AUTO) 0.2 (0.0-0.4); EOSINOPHILS % 2.4 % (0.0-6.0); HEMATOCRIT 24.3 % (38.2-49.6); HEMOGLOBIN 7.9 g/dL (14.0-18.0); LYMPHOCYTES # (AUTO) 1.8 (1.0-3.2); LYMPHOCYTES % 20.5 % (18.0-39.1); MEAN CORPUSCULAR HEMOGLOBIN 29.2 pg (28-32); MEAN CORPUSCULAR HGB CONC 32.5 g/dL (31-35); MEAN CORPUSCULAR VOLUME 89.7 fL (81-99); MONOCYTES # (AUTO) 0.3 (0.2-0.8); MONOCYTES % 2.9 % (4.4-11.3); NEUTROPHILS # (AUTO) 6.4 (2.1-6.9); NEUTROPHILS % 73.4 % (38.7-80.0); PLATELET COUNT 112 x10e3/uL (140-360); RED BLOOD COUNT 2.71 x10e6/uL (4.3-5.7); RED CELL DISTRIBUTION WIDTH 13.3 % (11.7-14.4)
[2019-09-25] MEDS: PANTOPRAZOL 40MG/SOD CHL 0.9% 50 ML IV SCH ×5 (05:04→21:02)
[2019-09-25 05:19] LABS: ALANINE AMINOTRANSFERASE 44 IU/L (0-55); ALBUMIN 1.7 g/dL (3.5-5.0); ALBUMIN/GLOBULIN RATIO 0.3 (0.8-2.0); ALKALINE PHOSPHATASE 102 IU/L (40-150); ANION GAP 11.6 mmol/L (8-16); BLOOD UREA NITROGEN 16 mg/dL (7-26); BUN/CREATININE RATIO 14 (6-25); CALCIUM 7.4 mg/dL (8.4-10.2); CARBON DIOXIDE 25 mmol/L (22-29); CHLORIDE 107 mmol/L (98-107); CREATININE, SERUM 1.14 mg/dL (0.72-1.25); EST GLOMERULAR FILTRATION RATE > 60 ML/MIN (60-); GLUCOSE 100 mg/dL (74-118); POTASSIUM 3.6 mmol/L (3.5-5.1); SODIUM 140 mmol/L (136-145)
--- NOTE | 2019-09-25 07:54 | Diagnostic Imaging Report ---
Examination: Single AP view of the chest. COMPARISON: Portable chest 09/21/2019 and 09/24/2019 INDICATION: Respiratory failure, pneumonia IMPRESSION: 1. Lines and Tubes: None 2. No interval change in diffuse bilateral interstitial and alveolar opacities consistent with multifocal pneumonia. 3. Stable mild prominence of the cardiac silhouette, which is partly due to portable AP projection.. Pulmonary vasculature is obscured. 4. No acute bony abnormalities. Signed by: Dr. Dave Michel M.D. on 09/25/2019 7:51 AM
[2019-09-25] MEDS: INSULIN LISPRO 100 UNIT/1 ML 3ML VIAL SQ SCH ×7 (08:46→21:12)
[2019-09-25] MEDS: FINASTERIDE 5 MG TAB PO SCH (08:48)
[2019-09-25] MEDS: FAMOTIDINE 20 MG/2 ML VIAL IV SCH ×2 (08:48→21:02)
[2019-09-25] MEDS: ALLOPURINOL 100 MG TAB PO SCH (08:48)
[2019-09-25] MEDS: AMLODIPINE BESYLATE 10 MG TAB PO SCH (08:49)
[2019-09-25] MEDS: CYANOCOBALAMIN INJ 1,000 MCG/ML VIAL IM SCH (13:04)
--- NOTE | 2019-09-25 14:08 | Progress Note ---
DATE: SUBJECTIVE: The patient was able to stand with physical therapy. He remains on the Vapotherm, although he is only wearing it intermittently. PHYSICAL EXAMINATION: VITAL SIGNS: The blood pressure is 123/66, saturation is 100% and the pulse is 96. T-max is 99.7. HEENT: Shows no facial swelling or erythema. CARDIAC: Reveals regular rate and rhythm. Normal S1 and S2. LUNGS: Auscultation of lungs reveals rhonchorous breath sounds bilaterally. There is no wheezing. ABDOMEN: Soft and nontender. There is no rebound or guarding. EXTREMITIES: Shows no leg edema or calf tenderness. There is no cyanosis or clubbing. SKIN: Shows no rashes. NEUROLOGICAL: Shows no focal abnormalities. LABORATORY DATA: White blood cell count is 8.7 and hemoglobin is 7.9. The platelet count is 112. BUN to creatinine ratio is 16 to 1.14. Other electrolytes are within normal limits. Blood sugars 132 and the albumin is 1.7. RADIOGRAPHIC DATA: Chest x-ray shows bilateral alveolar infiltrates. IMPRESSION: 1. Viral pneumonia and COVID-19 infection. 2. Anemia secondary to blood loss. 3. Upper gastrointestinal bleeding. 4. Thrombocytopenia. 5. Diabetes. 6. Hypertension. PLAN: 1. Continue Protonix drip. 2. Continue to monitor blood counts. 3. Continue insulin as needed. 4. Continue to monitor fevers and white blood cell count. 5. Wean off Vapotherm. 6. Await further recommendations from GI. Barrett Martinez MD [facility]/[place] /[id number]
[2019-09-25] MEDS: IRON SUCROSE 100 MG in SODIUM CHLORIDE 0.9% 100 ML 100 ML IV SCH (15:26)
[2019-09-25] MEDS: INSULIN GLARGINE 100 UNITS/ML VIAL SQ SCH (21:12)
[2019-09-26] VITALS (29 sets, daily range): BP systolic 104–137; BP diastolic 57–99
[2019-09-26] MEDS: PANTOPRAZOL 40MG/SOD CHL 0.9% 50 ML IV SCH ×5 (00:41→21:08)
[2019-09-26 06:30] LABS: ALANINE AMINOTRANSFERASE 46 IU/L (0-55); ALBUMIN 1.7 g/dL (3.5-5.0); ALBUMIN/GLOBULIN RATIO 0.3 (0.8-2.0); ALKALINE PHOSPHATASE 108 IU/L (40-150); ANION GAP 12.3 mmol/L (8-16); BLOOD UREA NITROGEN 11 mg/dL (7-26); BUN/CREATININE RATIO 11 (6-25); CALCIUM 7.4 mg/dL (8.4-10.2); CARBON DIOXIDE 26 mmol/L (22-29); CHLORIDE 107 mmol/L (98-107); CREATININE, SERUM 1.01 mg/dL (0.72-1.25); EST GLOMERULAR FILTRATION RATE > 60 ML/MIN (60-); GLUCOSE 61 mg/dL (74-118); POTASSIUM 3.3 mmol/L (3.5-5.1); SODIUM 142 mmol/L (136-145)
[2019-09-26] MEDS: INSULIN LISPRO 100 UNIT/1 ML 3ML VIAL SQ SCH ×7 (07:30→22:11)
[2019-09-26 08:33] LABS: BASOPHILS % 0.2 % (0.0-1.0); EOSINOPHILS # (AUTO) 0.2 (0.0-0.4); EOSINOPHILS % 1.8 % (0.0-6.0); HEMATOCRIT 24.1 % (38.2-49.6); HEMOGLOBIN 7.9 g/dL (14.0-18.0); LYMPHOCYTES # (AUTO) 1.7 (1.0-3.2); LYMPHOCYTES % 20.3 % (18.0-39.1); MEAN CORPUSCULAR HEMOGLOBIN 29.4 pg (28-32); MEAN CORPUSCULAR HGB CONC 32.8 g/dL (31-35); MEAN CORPUSCULAR VOLUME 89.6 fL (81-99); MONOCYTES # (AUTO) 0.3 (0.2-0.8); MONOCYTES % 3.1 % (4.4-11.3); NEUTROPHILS # (AUTO) 6.1 (2.1-6.9); PLATELET COUNT 127 x10e3/uL (140-360); RED BLOOD COUNT 2.69 x10e6/uL (4.3-5.7); RED CELL DISTRIBUTION WIDTH 13.4 % (11.7-14.4)
[2019-09-26] MEDS: FAMOTIDINE 20 MG/2 ML VIAL IV SCH ×2 (09:05→21:08)
[2019-09-26] MEDS: ALLOPURINOL 100 MG TAB PO SCH (09:05)
[2019-09-26] MEDS: AMLODIPINE BESYLATE 10 MG TAB PO SCH (09:06)
[2019-09-26] MEDS: FINASTERIDE 5 MG TAB PO SCH (09:06)
[2019-09-26] MEDS ORDERED: POTASSIUM CHLORIDE 10MEQ EA PO ONE (09:15)
[2019-09-26] MEDS: CYANOCOBALAMIN INJ 1,000 MCG/ML VIAL IM SCH (09:40)
--- NOTE | 2019-09-26 09:57 | Progress Note ---
DATE: SUBJECTIVE: The patient has not had any more melena. He is eating well. He is now on a nasal cannula at 10 L. OBJECTIVE: VITAL SIGNS: He is saturating 100%. His respiratory rate in the low 20s. His blood pressure is 112/98. HEENT: Shows no facial swelling or erythema. CARDIAC: Reveals regular rate and rhythm with normal S1 and S2. LUNGS: Auscultation of lungs reveals crackles at the bases. There is no wheezing. ABDOMEN: Soft, nontender. There is no rebound or guarding. EXTREMITIES: Shows no leg edema or calf tenderness. There is no cyanosis or clubbing. SKIN: Shows no rashes. LABORATORY DATA: BUN to creatinine ratio is normal. Potassium is 3.3, and the albumin is 1.7. Other electrolytes are within normal limits. ASSESSMENT: 1. Viral pneumonia and coronavirus disease-19 infection. 2. Anemia secondary to acute blood loss. 3. Upper gastrointestinal bleeding. 4. Thrombocytopenia. 5. Diabetes. 6. Hypertension. PLAN: 1. Continue Protonix drip. 2. Repeat CBC now. 3. Continue to wean oxygen. 4. Continue to give insulin as needed. 5. Monitor blood pressure. 6. Transfer out of intensive care unit. 7. Replace potassium. Barrett Martinez MD [facility]/MODL /[id number]
--- NOTE | 2019-09-26 10:27 | Progress Note ---
DATE: SUBJECTIVE: The patient is seen and evaluated. Available labs and notes reviewed. Discussed with the nurse. The patient remains in COVID ICU. The patient is off Vapotherm, currently on 10 L of nasal cannula with a saturation at 96%. PHYSICAL EXAMINATION: VITAL SIGNS: Temperature 100.9 max x1, pulse 96, respiration 20, and blood pressure 129/74. GENERAL: Alert and oriented. No acute distress. Cough improved. CV: S1 and S2. CHEST: Equal expansion. Decreased breath sounds. No acute distress. ABDOMEN: Soft, obese, and nontender. HEENT: Moist. No pallor. No JVD. MEDICATIONS: Medication list reviewed, off antibiotics. ASSESSMENT AND PLAN: 1. COVID-19 pneumonia. 2. Respiratory failure, improved. 3. Anemia secondary to gastrointestinal bleed. 4. Hypertension. 5. Obesity. 6. Electrolyte abnormalities. 7. The patient is off zinc and vitamin C secondary to gastrointestinal bleed and anticoagulant are on hold. Improved O2 saturation, remains on 10 L, may be transferred out to COVID unit non-ICU possibly soon. Please refer to chart for more information. Dictated by Enrico Pearce PA-C (Al) Ruth Mott MD /MODL /[id number]
[2019-09-26] MEDS: IRON SUCROSE 100 MG in SODIUM CHLORIDE 0.9% 100 ML 100 ML IV SCH (13:23)
--- NOTE | 2019-09-26 21:40 | NUR ---
Received report about patient from [facility] nurse (KARY Camarena). Awaiting on pt to be transferred from [facility] to [id number] (Med surg 3 unit).
--- NOTE | 2019-09-26 21:48 | NUR ---
Pt and son notified of transfer. Pt son verbalized understanding. All questions and concerns addressed at this time. Report called to KARY Fu. Will transfer pt to room 290.
[2019-09-26] MEDS: INSULIN GLARGINE 100 UNITS/ML VIAL SQ SCH (22:20)
--- NOTE | 2019-09-26 23:00 | NUR ---
Pt arrived to the unit as a transfer from [facility] ICU to 298. Patient alert and oriented x3. Pt mostly uzbek speaking and understands little swiss language. On droplet isolation for testing positive on COVID-19. On 10L Hi-flow nasal cannula. Pt has urinal at bedside but is placed on diaper for prevention of soiling sheets. Pt noticeably tachpneic (RR of 23) with use of accessory chest muscles. Pt head of bed at about 60 degree angle to help with breathing. Pt on continuous Protonix drip at 10ml/hr. SCDs on BLE. Call clemens within reach. Bed alarm active. Will monitor closely.
--- NOTE | 2019-09-26 23:05 | NUR ---
O2 sat is 100% on 10L Hi-flow NC.
--- NOTE | 2019-09-26 23:33 | NUR ---
Pt transferred to floor via. Pt stable upon departure @ 2252. See chart for vital signs. Pt transferred with home meds, phone, director field services, and clothing items.
[2019-09-27] MEDS: PANTOPRAZOL 40MG/SOD CHL 0.9% 50 ML IV SCH ×5 (02:20→22:07)
[2019-09-27 04:35] VITALS: BP 132/65
[2019-09-27 06:33] LABS: BASOPHILS % 0.1 % (0.0-1.0); EOSINOPHILS # (AUTO) 0.1 (0.0-0.4); EOSINOPHILS % 1.9 % (0.0-6.0); HEMOGLOBIN 7.5 g/dL (14.0-18.0); LYMPHOCYTES # (AUTO) 1.8 (1.0-3.2); LYMPHOCYTES % 24.1 % (18.0-39.1); MEAN CORPUSCULAR HEMOGLOBIN 29.8 pg (28-32); MEAN CORPUSCULAR HGB CONC 32.6 g/dL (31-35); MEAN CORPUSCULAR VOLUME 91.3 fL (81-99); MONOCYTES # (AUTO) 0.2 (0.2-0.8); MONOCYTES % 3.2 % (4.4-11.3); NEUTROPHILS # (AUTO) 5.2 (2.1-6.9); NEUTROPHILS % 69.8 % (38.7-80.0); PLATELET COUNT 136 x10e3/uL (140-360); RED BLOOD COUNT 2.52 x10e6/uL (4.3-5.7); RED CELL DISTRIBUTION WIDTH 13.5 % (11.7-14.4)
[2019-09-27 07:03] LABS: ALANINE AMINOTRANSFERASE 58 IU/L (0-55); ALBUMIN 1.5 g/dL (3.5-5.0); ALBUMIN/GLOBULIN RATIO 0.3 (0.8-2.0); ALKALINE PHOSPHATASE 110 IU/L (40-150); ANION GAP 10.2 mmol/L (8-16); BLOOD UREA NITROGEN 11 mg/dL (7-26); BUN/CREATININE RATIO 10 (6-25); CALCIUM 7.3 mg/dL (8.4-10.2); CARBON DIOXIDE 25 mmol/L (22-29); CHLORIDE 106 mmol/L (98-107); CREATININE, SERUM 1.05 mg/dL (0.72-1.25); EST GLOMERULAR FILTRATION RATE > 60 ML/MIN (60-); GLUCOSE 104 mg/dL (74-118); POTASSIUM 3.2 mmol/L (3.5-5.1); SODIUM 138 mmol/L (136-145)
[2019-09-27] MEDS: INSULIN LISPRO 100 UNIT/1 ML 3ML VIAL SQ SCH ×7 (07:30→21:00)
--- NOTE | 2019-09-27 07:38 | Diagnostic Imaging Report ---
Examination: Single AP view of the chest. COMPARISON: Portable chest 09/25/2019 INDICATION: Shortness of breath, COVID IMPRESSION: 1. Lines and Tubes: None 2. No significant interval change in diffuse bilateral interstitial and alveolar opacities consistent with multifocal pneumonia. 3. Cardiomediastinal silhouette is normal. Pulmonary vasculature is obscured. 4. No acute bony abnormalities. Signed by: Dr. Dave Michel M.D. on 09/27/2019 7:35 AM
[2019-09-27 08:00] VITALS: BP 131/67
[2019-09-27] MEDS: CYANOCOBALAMIN INJ 1,000 MCG/ML VIAL IM SCH (08:51)
[2019-09-27] MEDS: FAMOTIDINE 20 MG/2 ML VIAL IV SCH ×2 (08:51→20:45)
[2019-09-27] MEDS: FINASTERIDE 5 MG TAB PO SCH (08:51)
[2019-09-27] MEDS: ALLOPURINOL 100 MG TAB PO SCH (08:51)
[2019-09-27] MEDS: AMLODIPINE BESYLATE 10 MG TAB PO SCH (08:51)
[2019-09-27 09:00] VITALS: BP 131/67
[2019-09-27] MEDS ORDERED: POTASSIUM CHLORIDE 10MEQ EA PO SCH (10:30)
[2019-09-27 11:23] LABS: EOSINOPHILS % (MANUAL) 1 % (0-7); LYMPHOCYTES % (MANUAL) 22 % (19-48); MONOCYTES % (MANUAL) 3 % (3.4-9.0); NEUTROPHILS % (MANUAL) 74 % (40-74); PLATELET ESTIMATE SLIGHTLY DECREASED; PLATELET MORPHOLOGY COMMENT NORMAL
--- NOTE | 2019-09-27 11:55 | Progress Note ---
DATE: SUBJECTIVE: The patient is seen and evaluated. Available labs and notes reviewed. Discussed with Dr. Mott. Discussed with the staff. No new events. The patient remains on 9-10 L of oxygen through the nasal cannula with saturation of 97-100%. REVIEW OF SYSTEMS: No nausea, vomiting, fever, chills, chest pain/shortness of breath with significant improvement, it is better, voids in urinal and has bowel movement. No diarrhea. PHYSICAL EXAMINATION: VITAL SIGNS: Temperature 98.2, pulse 103, respirations 20, and blood pressure 131/67. GENERAL: Alert and oriented, no acute distress. Clinically, looks much better. Not coughing as much. No distress noted. CV: S1, S2. CHEST: Equal expansion. Decreased breath sounds. No acute distress. ABDOMEN: Soft, obese, and nontender. HEENT: Moist. No pallor. No JVD. EXTREMITIES: Weak, but moves all. MEDICATIONS: Reviewed. From ID point of view, the patient is on no antibiotics. LABORATORY STUDIES: White count of 7.46, hemoglobin 7.5, platelet 136, improved from 127. Sodium 138, potassium 3.2, creatinine 1.05. AST 49 up from 41, ALT up from 46-58. SEROLOGY: Coronavirus disease PCR was detected on 09/07. MICROBIOLOGY: No new microbiology studies available. RADIOLOGY STUDIES: Chest x-ray from today showed no significant interval change in diffuse bilateral interstitial and alveolar opacities consistent with multifocal pneumonia. ASSESSMENT AND PLAN: 1. Coronavirus disease-2019 pneumonia. 2. Respiratory failure, resolving, currently on 9-10 L of oxygen nasal cannula. Saturation as mentioned above. No acute distress. 3. Anemia secondary to GI bleed. 4. Obesity. 5. Hypertension. 6. Electrolyte abnormalities. 7. The patient is status post antibiotics. Vitamin C and zinc were stopped secondary to GI bleed, so was anticoagulants, which were stopped secondary to GI bleed. Clinically improving. Needs aggressive rehab. Continue to monitor patient clinically. Follow with the labs. Dictated by Enrico Pearce PA-C (Al) Ruth Mott MD /MODL /[id number]
[2019-09-27 12:00] VITALS: BP 114/63
[2019-09-27] MEDS: IRON SUCROSE 100 MG in SODIUM CHLORIDE 0.9% 100 ML 100 ML IV SCH (13:07)
[2019-09-27 16:00] VITALS: BP 120/66
--- NOTE | 2019-09-27 16:27 | NUR ---
per physical therapist, patient desats while exerting trying to stand and get out of bed. they had to place patient on nonrebreather during PT session. back on high flow nasal cannula at this time. 10L high flow- 98% at rest.
[2019-09-27] MEDS: GUAIFENESIN/CODEINE 10 ML CUP PO PRN ×2 (16:35→20:35)
[2019-09-27] MEDS: ACETAMINOPHEN 325 MG TAB PO PRN ×2 (16:35→20:35)
--- NOTE | 2019-09-27 16:47 | NUR ---
Nutrition Screen Note RD Recommendation for Physician: - Continue current diet as ordered - If PO intake <50% of meals, offer Glucerna nutrition supplement Plan of Care: RD following monitoring for tolerance and adequacy Nutrition reason for involvement: follow up Primary Diagnose(s): Hyperglycemia, Pneumonia due to COVID - 19 PMH: T2DM, HTN, overweight/obesity, Gout, dyslipidemia, DM pneuropathy, reflux, Ht:67 in Wt:192 lbs (09/26) 217 lbs (09/18) 220.25 lbs (09/13) BMI:30.1 kg/m2 IBW: [address] Assessment: 09/26: Follow up. Chart reviewed. Attempted to call pt over the phone, but he did not answer. Last recorded meal intake amount was 50-100% on 09/22. Unable to verify weight status with pt at this time. If PO intake <50% of meals, recommend to offer the pt a Glucerna nutrition supplement. Will continue to monitor. 09/19: Follow up. Unable to speak to pt. Pt has varied intake. It is recorded pt consumed 0% of meals on 09/16 and was previously consuming 25-100% of meals. If PO intake <50% of meals, recommend to offer the pt a Glucerna nutrition supplement. Will continue to monitor. (09/13) Initial encounter with patient. Diet Hx: Pt denies any known food allergies. Medications: reviewed: on Vitamin C, zinc sulfate, lasix. Pt was eating breakfast at time of visit and only had C/O coughing due to COVID-19 pneumonia. Pt denies any difficulty chewing or swallowing nor has any nausea or vomiting. Pt reported a good PO intake [employer]. No significant wt changes. Pt is able to feed himself. Biochemical data reviewed. Hyperglycemia POC 279 on 09/12 Current Diet: 1800 ADA Malnutrition Evaluation (09/14/2019) The patient does not meet criteria for a specified degree of malnutrition at this time. Will re-evaluate at follow-up as appropriate. Diet Education Needs Assessment: RD is available for diet education as needed Diet tolerance: unable to assess Nutrition Care Level: low Signed: Nica Rodriguez, RD, LD
[2019-09-27] MEDS ORDERED: POTASSIUM CHLORIDE 10MEQ EA ONE (17:12)
--- NOTE | 2019-09-27 17:16 | Progress Note ---
DATE: SUBJECTIVE: The patient is now standing with physical therapy. He is weak, but he has been able to stand and take a few steps. He has no further melena. PHYSICAL EXAMINATION: VITAL SIGNS: The blood pressure is 114/63, saturating 98% on 10 L one at rest. HEENT: No facial swelling or erythema. CARDIAC: Regular rate and rhythm with normal S1, S2. LUNGS: Auscultation of lungs reveals rhonchorous breath sounds bilaterally. There is no wheezing. ABDOMEN: Soft, nontender. There is no rebound or guarding. EXTREMITIES: No leg edema or calf tenderness. There is no cyanosis or clubbing. LABORATORY DATA: Hemoglobin is 7.5. Other counts are within normal limits. BUN and creatinine are normal. Potassium is 3.2 and the albumin is 1.5. IMPRESSION: 1. Viral pneumonia and coronavirus disease-19 infection. 2. Anemia secondary to acute blood loss. 3. Upper gastrointestinal bleeding. 4. Thrombocytopenia. 5. Diabetes. PLAN: 1. Continue Protonix drip. 2. Monitor CBC. 3. Continue physical therapy. 4. Wean oxygen. 5. Insulin as needed. Barrett Martinez MD [facility]/MODL /[id number]
--- NOTE | 2019-09-27 19:22 | NUR ---
received report from day nurse. patient is resting comfortably in the bed. bed is in lowest position and call light is within reach. will continue to monitor patient.
[2019-09-27 20:00] VITALS: BP 121/63
[2019-09-27] MEDS ORDERED: SODIUM CHLORIDE 0.9% 250ML 250 ML ONE (21:17)
[2019-09-27] MEDS: INSULIN GLARGINE 100 UNITS/ML VIAL SQ SCH (22:14)
[2019-09-28] VITALS (8 sets, daily range): BP systolic 116–134; BP diastolic 58–75
[2019-09-28] MEDS: PANTOPRAZOL 40MG/SOD CHL 0.9% 50 ML IV SCH ×2 (03:00→08:35)
[2019-09-28 05:55] LABS: BASOPHILS % 0.1 % (0.0-1.0); EOSINOPHILS # (AUTO) 0.1 (0.0-0.4); EOSINOPHILS % 1.9 % (0.0-6.0); HEMATOCRIT 23.7 % (38.2-49.6); HEMOGLOBIN 7.6 g/dL (14.0-18.0); LYMPHOCYTES # (AUTO) 1.9 (1.0-3.2); LYMPHOCYTES % 25.4 % (18.0-39.1); MEAN CORPUSCULAR HEMOGLOBIN 29.5 pg (28-32); MEAN CORPUSCULAR HGB CONC 32.1 g/dL (31-35); MEAN CORPUSCULAR VOLUME 91.9 fL (81-99); MONOCYTES # (AUTO) 0.3 (0.2-0.8); MONOCYTES % 3.6 % (4.4-11.3); NEUTROPHILS # (AUTO) 5.1 (2.1-6.9); NEUTROPHILS % 68.2 % (38.7-80.0); PLATELET COUNT 163 x10e3/uL (140-360); RED BLOOD COUNT 2.58 x10e6/uL (4.3-5.7); RED CELL DISTRIBUTION WIDTH 13.7 % (11.7-14.4)
[2019-09-28 06:10] LABS: ALANINE AMINOTRANSFERASE 80 IU/L (0-55); ALBUMIN 1.7 g/dL (3.5-5.0); ALBUMIN/GLOBULIN RATIO 0.3 (0.8-2.0); ALKALINE PHOSPHATASE 125 IU/L (40-150); ANION GAP 10.6 mmol/L (8-16); BLOOD UREA NITROGEN 12 mg/dL (7-26); BUN/CREATININE RATIO 11 (6-25); CALCIUM 7.4 mg/dL (8.4-10.2); CARBON DIOXIDE 25 mmol/L (22-29); CHLORIDE 107 mmol/L (98-107); CREATININE, SERUM 1.08 mg/dL (0.72-1.25); EST GLOMERULAR FILTRATION RATE > 60 ML/MIN (60-); GLUCOSE 77 mg/dL (74-118); POTASSIUM 3.6 mmol/L (3.5-5.1); SODIUM 139 mmol/L (136-145)
[2019-09-28 06:25] LABS: MAGNESIUM 1.9 MG/DL (1.3-2.1); PHOSPHORUS 2.5 MG/DL (2.3-4.7)
--- NOTE | 2019-09-28 07:00 | NUR ---
RECEIVED REPORT FROM PM RN. PT IS ALERT RESTING IN BED, NO S/S OF DISTRESS. PT C/O NOSE STUFFINESS, O2 SAT WAS 92%. NASAL CANNULA WAS REMOVED AND PLACED NON-REBREATHER MASK ON PT. CALL LIGHT WITHIN REACH AND INSTRUCTED PT TO CALL RN FOR HELP
--- NOTE | 2019-09-28 07:05 | NUR ---
change of shift report given to day nurse.
[2019-09-28] MEDS: INSULIN LISPRO 100 UNIT/1 ML 3ML VIAL SQ SCH ×7 (07:30→21:53)
[2019-09-28] MEDS: ALLOPURINOL 100 MG TAB PO SCH (08:35)
[2019-09-28] MEDS: CYANOCOBALAMIN INJ 1,000 MCG/ML VIAL IM SCH (08:35)
[2019-09-28] MEDS: FINASTERIDE 5 MG TAB PO SCH (08:35)
[2019-09-28] MEDS: AMLODIPINE BESYLATE 10 MG TAB PO SCH (08:35)
[2019-09-28] MEDS: FAMOTIDINE 20 MG/2 ML VIAL IV SCH ×2 (08:35→21:43)
[2019-09-28 11:24] LABS: PLATELET ESTIMATE SLIGHTLY DECREASED; PLATELET MORPHOLOGY COMMENT NORMAL; RBC MORPHOLOGY COMMENT NORMAL
[2019-09-28] MEDS: IRON SUCROSE 100 MG in SODIUM CHLORIDE 0.9% 100 ML 100 ML IV SCH (14:11)
[2019-09-28] MEDS: VANCOMYCIN 1GM/NS 250 ML 250 ML IV SCH (16:56)
--- NOTE | 2019-09-28 17:12 | Progress Note ---
DATE: SUBJECTIVE: The patient complains of sores around his nose. He is on 100% non-rebreather now. He has had no further melena. He has no dyspepsia. He feels short of breath with standing. PHYSICAL EXAMINATION: VITAL SIGNS: The patient is afebrile. He is saturating 100% on a non-rebreather. His pulse is 100 to 108. The blood pressure is 134/75. HEENT: Some abrasions and sores on the inferior aspect of his left nostril. CARDIAC: Regular rate and rhythm with normal S1, S2. LUNGS: Auscultation of lungs reveals clear breath sounds bilaterally. There is no wheezing. Does have crackles at the bases. ABDOMEN: Soft, nontender. There is no rebound or guarding. EXTREMITIES: No leg edema or calf tenderness. There is no cyanosis or clubbing. SKIN: No rashes. LABORATORY DATA: CBC is significant for hemoglobin of 7.6. Electrolytes, BUN and creatinine are within normal limits. Blood sugars are normal. IMPRESSION: 1. Acute respiratory failure. 2. Viral pneumonia and coronavirus disease-19 infection. 3. Anemia secondary to acute blood loss. 4. Upper gastrointestinal bleeding. 5. Thrombocytopenia. 6. Diabetes. 7. Ulcerations in the rin-nasal area. PLAN: 1. Continue Protonix. Recommended by GI. 2. Monitor CBC. 3. Low-dose hydrocortisone for nasal sores. 4. Physical therapy. 5. Insulin as needed. 6. Wean oxygen. Barrett Martinez MD [facility]/MODL /[id number]
--- NOTE | 2019-09-28 18:02 | Progress Note ---
DATE: SUBJECTIVE: Mr. Contreras is doing better. There are no new complaints. PHYSICAL EXAMINATION: GENERAL: He is currently alert, oriented. VITAL SIGNS: Stable, currently afebrile. HEENT: He is not icteric. NECK: Supple. CHEST: Clear. IMPRESSION AND PLAN: 1. Coronavirus disease-19, clinically stable. The patient remains on high FiO2, but he is stable. Continue to wean him slowly. Could not be discharged because he is still on high FiO2. 2. Viral pneumonia, coronavirus disease-19. 3. Thrombocytopenia. 4. Diabetes mellitus. We will put him on meropenem and vancomycin. We will do CT of the chest to rule out pneumonia. We will follow. Ruth Mott MD [facility]/MODL /[id number]
--- NOTE | 2019-09-28 21:19 | Diagnostic Imaging Report ---
EXAMINATION: CT of the chest with contrast, PE protocol. TECHNIQUE: Spiral CT images of the chest were performed from the lung apices through the level of the adrenal glands after the IV administration of 100 cc of Isovue 370. Thin section reconstructions were obtained with special concentration on the pulmonary arteries. Coronal and sagittal reformatted images were also performed. COMPARISON: Portable chest 09/27/2019 CLINICAL HISTORY:Pneumonia, suspect PE, COVID + DISCUSSION: Exam limited as it was acquired during partial expiratory phase. Lungs: No filling defects are identified in the main, right or left pulmonary arteries to their proximal segmental branches. Unable to assess distal segmental and subsegmental vessels due to poor contrast opacification., Diffusely increased attenuation of the pulmonary parenchyma secondary to scan acquired during partial expiratory phase. Diffuse bilateral groundglass opacities extending along the bronchovascular bundles, most of which are rounded and predominantly peripheral. Interlobular septal thickening is noted in the groundglass opacities. More confluent opacities with air bronchograms are noted in the superior segment of the right lower lobe (for example series 3, image 59 and 66). No pulmonary masses. Airways: Major airways are clear, without bronchial lesions. Pleura: Small bilateral pleural effusions, left greater than right. Heart and mediastinum: Thyroid is unremarkable. Heart size is normal. No pericardial effusion. Atherosclerotic calcification of the coronary arteries and thoracic aortic arch. Aorta is not aneurysmal. Main pulmonary artery is enlarged, measuring 3.7 cm. Lymph nodes: Mildly enlarged right upper paratracheal lymph node which measures 1.2 cm in short axis (series 2, image 26). No other enlarged mediastinal or hilar or axillary adenopathy. Abdomen: The visualized portions of the liver, spleen, pancreas, adrenal glands are unremarkable. Bilateral renal cortical scarring and thinning. Bones and soft tissues: No aggressive lytic or suspicious focal sclerotic lesions. Generalized osteopenia. Soft tissues are unremarkable. IMPRESSION: 1. No evidence of pulmonary embolism to the proximal segmental branches. The distal segmental and subsegmental vessels cannot be adequately evaluated due to poor contrast opacification. 2. Commonly reported imaging features of COVID 19 pneumonia are present. Other processes such as influenza pneumonia and organizing pneumonia, as can be seen with drug toxicity and connective tissue disease, can cause a similar imaging pattern. 3. Small bilateral pleural effusions, left greater than right. 4. Enlarged main pulmonary artery, suggesting pulmonary hypertension. 5. Mildly enlarged right upper paratracheal lymph node, likely reactive. Signed by: Dr. Dave Michel M.D. on 09/28/2019 9:16 PM
[2019-09-28] MEDS: MUPIROCIN 2% OINT 22 GM TUBE TOP SCH (21:30)
[2019-09-28] MEDS: MEROPENEM 1GM 100 ML IV SCH (21:43)
[2019-09-28] MEDS: GUAIFENESIN/CODEINE 10 ML CUP PO PRN (21:44)
[2019-09-28] MEDS: ACETAMINOPHEN 325 MG TAB PO PRN (21:44)
[2019-09-28] MEDS: INSULIN GLARGINE 100 UNITS/ML VIAL SQ SCH (21:57)
[2019-09-28] MEDS ORDERED: IOPAMIDOL 370 MG/ML 200 ML INFUS..BTL INJ ONE (22:10)
[2019-09-28] MEDS ORDERED: SODIUM CHLORIDE 0.9% 50ML 100 ML ONE (22:10)
[2019-09-29] VITALS (8 sets, daily range): BP systolic 117–132; BP diastolic 60–71
[2019-09-29] MEDS: VANCOMYCIN 1GM/NS 250 ML 250 ML IV SCH ×2 (05:12→16:00)
[2019-09-29 05:48] LABS: BASOPHILS % 0.3 % (0.0-1.0); EOSINOPHILS # (AUTO) 0.1 (0.0-0.4); EOSINOPHILS % 0.8 % (0.0-6.0); HEMATOCRIT 22.3 % (38.2-49.6); HEMOGLOBIN 7.2 g/dL (14.0-18.0); LYMPHOCYTES # (AUTO) 1.7 (1.0-3.2); LYMPHOCYTES % 23.5 % (18.0-39.1); MEAN CORPUSCULAR HEMOGLOBIN 30.6 pg (28-32); MEAN CORPUSCULAR HGB CONC 32.3 g/dL (31-35); MEAN CORPUSCULAR VOLUME 94.9 fL (81-99); MONOCYTES # (AUTO) 0.4 (0.2-0.8); MONOCYTES % 4.8 % (4.4-11.3); NEUTROPHILS # (AUTO) 5.1 (2.1-6.9); NEUTROPHILS % 69.5 % (38.7-80.0); PLATELET COUNT 176 x10e3/uL (140-360); RED BLOOD COUNT 2.35 x10e6/uL (4.3-5.7); RED CELL DISTRIBUTION WIDTH 13.9 % (11.7-14.4)
--- NOTE | 2019-09-29 06:00 | NUR ---
received critical lab, patients sugar is 58. patient is awake and talking. patient has been given dextrose, and 1 cup of orange juice.
--- NOTE | 2019-09-29 06:15 | NUR ---
patients blood sugar has been rechecked and found to be 185. patient is awake and talking.
[2019-09-29 06:25] LABS: ALANINE AMINOTRANSFERASE 66 IU/L (0-55); ALBUMIN 1.6 g/dL (3.5-5.0); ALBUMIN/GLOBULIN RATIO 0.3 (0.8-2.0); ALKALINE PHOSPHATASE 130 IU/L (40-150); ANION GAP 11.5 mmol/L (8-16); BLOOD UREA NITROGEN 13 mg/dL (7-26); BUN/CREATININE RATIO 12 (6-25); CALCIUM 7.5 mg/dL (8.4-10.2); CARBON DIOXIDE 25 mmol/L (22-29); CHLORIDE 105 mmol/L (98-107); CREATININE, SERUM 1.08 mg/dL (0.72-1.25); EST GLOMERULAR FILTRATION RATE > 60 ML/MIN (60-); POTASSIUM 3.5 mmol/L (3.5-5.1); SODIUM 138 mmol/L (136-145)
[2019-09-29] MEDS: MEROPENEM 1GM 100 ML IV SCH ×2 (06:26→14:00)
[2019-09-29 06:28] LABS: GLUCOSE 58 mg/dL (74-118)
--- NOTE | 2019-09-29 07:00 | NUR ---
received report from pm RN. pt is alert sitting up in bed. Pt is SOB, NRB mask is on and oxygen is at 15L. call light within reach and instructed pt to call RN for help
--- NOTE | 2019-09-29 07:00 | NUR ---
report given to day nurse.
[2019-09-29] MEDS: INSULIN LISPRO 100 UNIT/1 ML 3ML VIAL SQ SCH ×7 (07:30→21:15)
[2019-09-29] MEDS: FAMOTIDINE 20 MG/2 ML VIAL IV SCH (08:39)
[2019-09-29] MEDS: ALLOPURINOL 100 MG TAB PO SCH (08:40)
[2019-09-29] MEDS: AMLODIPINE BESYLATE 10 MG TAB PO SCH (08:40)
[2019-09-29] MEDS: FINASTERIDE 5 MG TAB PO SCH (08:40)
[2019-09-29] MEDS: MUPIROCIN 2% OINT 22 GM TUBE TOP SCH ×2 (08:40→16:35)
[2019-09-29 09:17] LABS: HYPOCHROMASIA N; LYMPHOCYTES % (MANUAL) 14 % (19-48); MONOCYTES % (MANUAL) 3 % (3.4-9.0); NEUTROPHILS % (MANUAL) 83 % (40-74); PLATELET ESTIMATE ADEQUATE; RBC MORPHOLOGY COMMENT NORMAL
[2019-09-29] MEDS: CYANOCOBALAMIN INJ 1,000 MCG/ML VIAL IM SCH (12:15)
[2019-09-29] MEDS: IRON SUCROSE 100 MG in SODIUM CHLORIDE 0.9% 100 ML 100 ML IV SCH (14:32)
--- NOTE | 2019-09-29 16:41 | NUR ---
called Dr. Henry and left a message requesting an order for PICC line. waiting for call back
--- NOTE | 2019-09-29 17:25 | NUR ---
got verbal order from Dr. Michael Martinez for picc line, patient may need to be transferred back to ICU per Dr. Martinez
[2019-09-29] MEDS ORDERED: LACTATED RINGER'S 500 ML INJ ONE (17:30)
--- NOTE | 2019-09-29 17:45 | NUR ---
consent was signed for PICC line. notified radiology that consent was done so PICC RN could be called out
--- NOTE | 2019-09-29 18:21 | Progress Note ---
DATE: SUBJECTIVE: The patient is now on 100% non-rebreather. He has desaturations to 77% when he stands with physical therapy. He complains of pain in his mouth as well as ulcerations under his nose. He has not had any more melena or gastrointestinal symptoms. PHYSICAL EXAMINATION: VITAL SIGNS: Blood pressure is 127/62, saturation is 100% on a non-rebreather. The patient is afebrile and the pulse is 104. HEENT: Shows no facial swelling or erythema. CARDIAC: Reveals regular rate and rhythm with normal S1, S2. LUNGS: Auscultation of lungs reveals crackles at the bases. There is no wheezing. ABDOMEN: Soft and nontender. There is no rebound or guarding. EXTREMITIES: Shows no leg edema or calf tenderness. There is no cyanosis or clubbing. SKIN: Shows no rashes. NEUROLOGICAL: Shows no focal abnormalities. LABORATORY DATA: Hemoglobin is 7.2 and white blood cell count is 7.36, platelet count is 176, albumin is 1.6, and the BUN to creatinine ratio is 13 to 1.09. Blood sugars 180 to 200. IMPRESSION: 1. Acute respiratory failure. 2. Viral pneumonia and COVID-19. 3. Anemia secondary to blood loss. 4. Gastrointestinal bleeding. 5. Diabetes. PLAN: 1. Arrange for PICC line. 2. Transfer back to the intensive care unit. 3. Vapotherm if tolerated. 4. Continue insulin as needed. 5. Judicious use of IV fluids. 6. Case discussed with Dr. Henry, patient and nursing staff. Barrett Martinez MD [facility]/MODL /[id number]
[2019-09-29] MEDS: GUAIFENESIN/CODEINE 10 ML CUP PO PRN (19:49)
[2019-09-29] MEDS: ACETAMINOPHEN 325 MG TAB PO PRN (19:50)
[2019-09-29] MEDS: INSULIN GLARGINE 100 UNITS/ML VIAL SQ SCH (21:16)
--- NOTE | 2019-09-29 22:25 | Diagnostic Imaging Report ---
Examination: Single AP view of the chest. COMPARISON: Portable chest 09/27/2019. CT chest 09/28/2019 INDICATION: PICC line placement IMPRESSION: 1. Lines and Tubes: Interval placement of right-sided PICC line which has its distal tip projecting in the mid SVC. 2. Hypoinflated lungs. No interval change in diffuse bilateral interstitial and alveolar opacities consistent with multifocal pneumonia. 3. Cardiomediastinal silhouette is obscured. Pulmonary vasculature is obscured. 4. No acute bony abnormalities. Signed by: Dr. Dave Michel M.D. on 09/29/2019 10:21 PM
--- NOTE | 2019-09-29 22:30 | NUR ---
Picc tip is in mid SVC per radiology report by Dr Michel. Picc is okay to use
[2019-09-30] VITALS (23 sets, daily range): BP systolic 89–141; BP diastolic 58–88
[2019-09-30] MEDS: FAMOTIDINE 20 MG/2 ML VIAL IV SCH
--- NOTE | 2019-09-30 | NUR ---
Patient has been transferred to the ICU.
[2019-09-30] MEDS ORDERED: PANTOPRAZOLE 40 MG 10ML VIAL IV STA (02:15)
[2019-09-30] MEDS ORDERED: PANTOPRAZOLE 40 MG 10ML VIAL IV SCH (02:15)
[2019-09-30] MEDS ORDERED: LACTATED RINGER'S 1,000 ML ONE (02:53)
[2019-09-30] MEDS: VANCOMYCIN 1GM/NS 250 ML 250 ML IV SCH ×2 (04:30→17:05)
[2019-09-30 06:09] LABS: BASOPHILS % 0.2 % (0.0-1.0); EOSINOPHILS # (AUTO) 0.1 (0.0-0.4); EOSINOPHILS % 1.4 % (0.0-6.0); HEMATOCRIT 21.6 % (38.2-49.6); LYMPHOCYTES # (AUTO) 1.7 (1.0-3.2); MEAN CORPUSCULAR HEMOGLOBIN 29.3 pg (28-32); MEAN CORPUSCULAR HGB CONC 31.5 g/dL (31-35); MEAN CORPUSCULAR VOLUME 93.1 fL (81-99); MONOCYTES # (AUTO) 0.3 (0.2-0.8); MONOCYTES % 4.9 % (4.4-11.3); NEUTROPHILS # (AUTO) 4.2 (2.1-6.9); NEUTROPHILS % 65.4 % (38.7-80.0); PLATELET COUNT 211 x10e3/uL (140-360); RED BLOOD COUNT 2.32 x10e6/uL (4.3-5.7); RED CELL DISTRIBUTION WIDTH 13.7 % (11.7-14.4)
[2019-09-30 06:17] LABS: HEMOGLOBIN 6.8 g/dL (14.0-18.0)
--- NOTE | 2019-09-30 06:45 | NUR ---
This is infectious disease progress note date of service September 29, 2027 is late entry patient seen and examined chart review discussed with medical team Please referred to the orders The patient is now on 100% non-rebreather. He has desaturations to 77% when he stands with physical therapy. He complains of pain in his mouth as well as ulcerations under his nose. He has not had any more melena or gastrointestinal symptoms. PHYSICAL EXAMINATION: patient is alert but stable afebrile Hypoxemic VITAL SIGNS: Blood pressure is 127/62, saturation is 100% on a non-rebreather. The patient is afebrile and the pulse is 104. HEENT: Shows no facial swelling or erythema. that date normocephalic CARDIAC: Reveals regular rate and rhythm with normal S1, S2. LUNGS: Auscultation of lungs reveals crackles at the bases. There is no wheezing. ABDOMEN: Soft and nontender. There is no rebound or guarding. EXTREMITIES: Shows no leg edema or calf tenderness. There is no cyanosis or clubbing. SKIN: Shows no rashes. NEUROLOGICAL: Shows no focal abnormalities. LABORATORY DATA: Hemoglobin is 7.2 and white blood cell count is 7.36, platelet count is 176, albumin is 1.6, and the BUN to creatinine ratio is 13 to 1.09. Blood sugars 180 to 200. IMPRESSION: 1. Acute respiratory failure. 2. Viral pneumonia and COVID-19. 3. Anemia secondary to blood loss. 4. Gastrointestinal bleeding. 5. Diabetes. discussed with the medical team Please see orders We will follow
--- NOTE | 2019-09-30 06:47 | NUR ---
infectious disease progress note patient's exam and chart reviewed. Laboratory reviewed per discussed with medical team. Patient currently intensive care unit.The patient is now on 100% non-rebreather. He has desaturations to 77% when he stands with physical therapy. He complains of pain in his mouth as well as ulcerations under his nose. He has not had any more melena or gastrointestinal symptoms. PHYSICAL EXAMINATION: VITAL SIGNS: Blood pressure is 127/62, saturation is 100% on a non-rebreather. The patient is afebrile and the pulse is 104. HEENT: Shows no facial swelling or erythema. CARDIAC: Reveals regular rate and rhythm with normal S1, S2. LUNGS: Auscultation of lungs reveals crackles at the bases. There is no wheezing. ABDOMEN: Soft and nontender. There is no rebound or guarding. EXTREMITIES: Shows no leg edema or calf tenderness. There is no cyanosis or clubbing. SKIN: Shows no rashes. NEUROLOGICAL: Shows no focal abnormalities. LABORATORY DATA: Hemoglobin is 7.2 and white blood cell count is 7.36, platelet count is 176, albumin is 1.6, and the BUN to creatinine ratio is 13 to 1.09. Blood sugars 180 to 200. IMPRESSION: 1. Acute respiratory failure. 2. Viral pneumonia and COVID-19. 3. Anemia secondary to blood loss. 4. Gastrointestinal bleeding. 5. Diabetes. [id number] blood transfusion recommended Continue supportive care Discussed with the medical team
[2019-09-30 06:49] LABS: ALANINE AMINOTRANSFERASE 52 IU/L (0-55); ALBUMIN 1.5 g/dL (3.5-5.0); ALBUMIN/GLOBULIN RATIO 0.3 (0.8-2.0); ALKALINE PHOSPHATASE 108 IU/L (40-150); ANION GAP 10.6 mmol/L (8-16); BLOOD UREA NITROGEN 10 mg/dL (7-26); BUN/CREATININE RATIO 10 (6-25); CALCIUM 7.4 mg/dL (8.4-10.2); CARBON DIOXIDE 28 mmol/L (22-29); CHLORIDE 104 mmol/L (98-107); CREATININE, SERUM 1.04 mg/dL (0.72-1.25); EST GLOMERULAR FILTRATION RATE > 60 ML/MIN (60-); GLUCOSE 102 mg/dL (74-118); POTASSIUM 3.6 mmol/L (3.5-5.1); SODIUM 139 mmol/L (136-145)
--- NOTE | 2019-09-30 06:50 | Diagnostic Imaging Report ---
Examination: Single AP view of the chest. COMPARISON: Portable chest 09/29/2019 INDICATION: Shortness of breath, COVID IMPRESSION: 1. Lines and Tubes: Supporting right-sided PICC line is unchanged. 2. Hypoinflated lungs. No interval change in diffuse bilateral interstitial and alveolar opacities consistent with multifocal pneumonia. 3. Cardiomediastinal silhouette is obscured. Pulmonary vasculature is obscured. 4. No acute bony abnormalities. Signed by: Dr. Dave Michel M.D. on 09/30/2019 6:47 AM
[2019-09-30] MEDS: MEROPENEM 1GM 100 ML IV SCH ×4 (06:52→22:05)
[2019-09-30] MEDS: INSULIN LISPRO 100 UNIT/1 ML 3ML VIAL SQ SCH ×5 (07:30→22:01)
[2019-09-30] MEDS ORDERED: FUROSEMIDE INJ 10 MG/ML 2 ML VIAL IV SCH (08:30)
[2019-09-30] MEDS: PANTOPRAZOLE 40 MG 10ML VIAL IV SCH ×2 (08:40→17:05)
[2019-09-30] MEDS: MUPIROCIN 2% OINT 22 GM TUBE TOP SCH ×2 (08:41→17:05)
[2019-09-30] MEDS: FINASTERIDE 5 MG TAB PO SCH (08:41)
[2019-09-30] MEDS: ALLOPURINOL 100 MG TAB PO SCH (08:41)
[2019-09-30] MEDS ORDERED: FUROSEMIDE INJ 10 MG/ML 2 ML VIAL IV ONE (09:00)
[2019-09-30] MEDS ORDERED: SODIUM CHLORIDE 0.9% 250ML 250 ML IV SCH (09:00)
[2019-09-30] MEDS ORDERED: SODIUM CHLORIDE 0.9% 250ML 250 ML ONE (11:23)
--- NOTE | 2019-09-30 14:40 | Progress Note ---
DATE: SUBJECTIVE: The patient was transferred back to the intensive care unit yesterday because of difficulty breathing. He is now on Vapotherm at 30 L with 70% FiO2. He is saturating 99%. His hemoglobin was 6.8 and he is receiving packed red blood cells. PHYSICAL EXAMINATION: VITAL SIGNS: The blood pressure is 123/67, pulse is 90 and saturation is 99%. HEENT: Shows no facial swelling or erythema. CARDIAC: Reveals regular rate and rhythm with a normal S1 and S2. LUNGS: Auscultation of lungs reveals crackles at the bases. There is no wheezing. ABDOMEN: Soft and nontender. There is no rebound or guarding. EXTREMITIES: Shows no leg edema or calf tenderness. There is no cyanosis or clubbing. SKIN: Shows no rashes. NEUROLOGICAL: Shows no focal abnormalities. LABORATORY DATA: Hemoglobin is 6.8 and white blood cell count is 6.3. Platelet count is 211. BUN to creatinine ratio is normal. Other electrolytes are within normal limits. The albumin is 1.5. RADIOGRAPHIC DATA: Chest x-ray shows bilateral infiltrates. IMPRESSION: 1. Acute respiratory failure. 2. Viral pneumonia and COVID-19 infection. 3. Anemia secondary to chronic blood loss. 4. Diabetes. 5. Gastrointestinal bleeding. PLAN: 1. Continue Vapotherm and wean as tolerated. 2. Complete current antibiotics. 3. Packed red blood cells. 4. Monitor and control blood sugars. 5. Continue Protonix. MD MILAGROS Marte/HOWARD /[id number]
[2019-09-30 14:50] LABS: ALANINE AMINOTRANSFERASE 54 IU/L (0-55); ALBUMIN 1.6 g/dL (3.5-5.0); ALBUMIN/GLOBULIN RATIO 0.3 (0.8-2.0); ALKALINE PHOSPHATASE 114 IU/L (40-150); ANION GAP 10.4 mmol/L (8-16); BLOOD UREA NITROGEN 10 mg/dL (7-26); BUN/CREATININE RATIO 9 (6-25); CALCIUM 7.5 mg/dL (8.4-10.2); CARBON DIOXIDE 30 mmol/L (22-29); CHLORIDE 100 mmol/L (98-107); CREATININE, SERUM 1.16 mg/dL (0.72-1.25); EST GLOMERULAR FILTRATION RATE > 60 ML/MIN (60-); GLUCOSE 133 mg/dL (74-118); POTASSIUM 3.4 mmol/L (3.5-5.1); SODIUM 137 mmol/L (136-145)
--- NOTE | 2019-09-30 14:50 | NUR ---
Late Entry for 09/28/2019 @ 1700H Discussed care with KARY Castro and JORGE LUIS Segundo. Patient currently medically unstable for PT. Has been desaturating with minimal activities even while on NRB mask. Will discontinue PT services at this time. Nursing staff was advised to help sit pt up on the EOB or in a recliner to improve pt's tolerance to upright posture first. Will RE as needed. Addendum: 09/30/19 at 1454 by Branden Castellanos PT Amended: Links added.
--- NOTE | 2019-09-30 16:01 | Progress Note ---
DATE: SUBJECTIVE: Mr. Dave Contreras remains in intensive care unit. The patient remains on high oxygen demand. PHYSICAL EXAMINATION: HEENT: Not icteric. NECK: Supple. CHEST: Few crackles. HEART: S1 and S2. No murmur. ABDOMEN: Soft. Bowel sounds present. No tenderness. EXTREMITIES: No edema. IMPRESSION: This is day 22 of hospitalization, continue as ordered. MD DARIN Harrison/MODL /[id number]
[2019-09-30] MEDS ORDERED: CHLORASEPTIC SPRAY 177 ML BTL MM PRN (20:45)
[2019-09-30] MEDS ORDERED: INSULIN GLARGINE 100 UNITS/ML VIAL SQ SCH (21:00)
[2019-09-30] MEDS: INSULIN GLARGINE 100 UNITS/ML VIAL SQ SCH (22:01)
[2019-10-01] VITALS (25 sets, daily range): BP systolic 112–146; BP diastolic 66–92
[2019-10-01 03:46] LABS: BASOPHILS % 0.3 % (0.0-1.0); EOSINOPHILS # (AUTO) 0.1 (0.0-0.4); EOSINOPHILS % 1.3 % (0.0-6.0); HEMATOCRIT 26.2 % (38.2-49.6); HEMOGLOBIN 8.4 g/dL (14.0-18.0); LYMPHOCYTES # (AUTO) 2.1 (1.0-3.2); MEAN CORPUSCULAR HEMOGLOBIN 28.5 pg (28-32); MEAN CORPUSCULAR HGB CONC 32.1 g/dL (31-35); MEAN CORPUSCULAR VOLUME 88.8 fL (81-99); MONOCYTES # (AUTO) 0.4 (0.2-0.8); MONOCYTES % 6.3 % (4.4-11.3); NEUTROPHILS # (AUTO) 4.1 (2.1-6.9); NEUTROPHILS % 59.6 % (38.7-80.0); PLATELET COUNT 216 x10e3/uL (140-360); RED BLOOD COUNT 2.95 x10e6/uL (4.3-5.7); RED CELL DISTRIBUTION WIDTH 15.3 % (11.7-14.4)
[2019-10-01] MEDS: VANCOMYCIN 1GM/NS 250 ML 250 ML IV SCH ×2 (04:00→16:09)
[2019-10-01 04:02] LABS: ALANINE AMINOTRANSFERASE 49 IU/L (0-55); ALBUMIN 1.6 g/dL (3.5-5.0); ALBUMIN/GLOBULIN RATIO 0.3 (0.8-2.0); ALKALINE PHOSPHATASE 108 IU/L (40-150); ANION GAP 12.3 mmol/L (8-16); BLOOD UREA NITROGEN 9 mg/dL (7-26); BUN/CREATININE RATIO 8 (6-25); CALCIUM 7.6 mg/dL (8.4-10.2); CARBON DIOXIDE 31 mmol/L (22-29); CHLORIDE 100 mmol/L (98-107); CREATININE, SERUM 1.13 mg/dL (0.72-1.25); EST GLOMERULAR FILTRATION RATE > 60 ML/MIN (60-); GLUCOSE 81 mg/dL (74-118); POTASSIUM 3.3 mmol/L (3.5-5.1); SODIUM 140 mmol/L (136-145)
[2019-10-01] MEDS: MEROPENEM 1GM 100 ML IV SCH ×3 (05:45→22:30)
--- NOTE | 2019-10-01 06:12 | Diagnostic Imaging Report ---
EXAMINATION: CHEST SINGLE (PORTABLE) INDICATION: resp failure COMPARISON: Chest radiograph 09-30-2019. FINDINGS: AP view TUBES and LINES: Right arm PICC terminates in the SVC. LUNGS/PLEURA: Lungs are moderately inflated. Persistent bilateral interstitial and airspace opacities. HEART AND MEDIASTINUM: The cardiomediastinal silhouette is unremarkable. BONES AND SOFT TISSUES: No acute osseous lesion. Soft tissues are unremarkable. UPPER ABDOMEN: No free air under the diaphragm. IMPRESSION: Persistent bilateral interstitial and airspace opacities, compatible with multifocal pneumonia. Signed by: Dr. Barbara Oneal MD on 10/01/2019 6:08 AM
[2019-10-01] MEDS: INSULIN LISPRO 100 UNIT/1 ML 3ML VIAL SQ SCH ×4 (07:30→21:00)
[2019-10-01] MEDS: ALLOPURINOL 100 MG TAB PO SCH (09:00)
[2019-10-01] MEDS: HYDROCODONE/CHLORPHENIRAMINE 5 ML LIQCR PO PRN ×2 (09:00→21:05)
[2019-10-01] MEDS: PANTOPRAZOLE 40 MG 10ML VIAL IV SCH ×2 (09:00→17:49)
[2019-10-01] MEDS: ACETAMINOPHEN 325 MG TAB PO PRN (09:00)
[2019-10-01] MEDS: FINASTERIDE 5 MG TAB PO SCH (09:00)
[2019-10-01] MEDS: MUPIROCIN 2% OINT 22 GM TUBE TOP SCH ×2 (09:00→17:49)
[2019-10-01] MEDS ORDERED: POTASSIUM CHLORIDE 20 MEQ TAB CR PO SCH (10:20)
--- NOTE | 2019-10-01 13:09 | Progress Note ---
DATE: Pulmonary Critical Care Progress Note. SUBJECTIVE: The patient feels better. He is down to 20 L on Vapotherm. His FiO2 is at 60%. He is saturating in the mid 90s. He was able to the eat and drink today. PHYSICAL EXAMINATION: VITAL SIGNS: Blood pressure is 113/70. HEENT: Shows no facial swelling or erythema. CARDIAC: Reveals regular rate and rhythm with normal S1, S2. LUNGS: Auscultation of lungs reveals rhonchorous breath sounds bilaterally. There is no wheezing. ABDOMEN: Soft and nontender. There is no rebound or guarding. EXTREMITIES: Shows no leg edema or calf tenderness. There is no cyanosis or clubbing. SKIN: Shows no rashes. NEUROLOGICAL: Shows no focal abnormalities. LABORATORY DATA: Hemoglobin is 8.4 and white blood cell count is 6.7, the platelet count is 216. BUN to creatinine ratio is 9 to 1.13. The potassium is 3.3. Albumin is 1.6. RADIOGRAPHIC DATA: Chest x-ray shows bilateral infiltrates, consistent with viral pneumonia. IMPRESSION: 1. Acute respiratory failure. 2. Viral pneumonia and COVID-19 infection. 3. Anemia secondary to chronic blood loss. 4. Diabetes. 5. Gastrointestinal bleeding. PLAN: 1. Continue to wean Vapotherm. 2. Continue to monitor blood counts. 3. Continue to monitor and control blood sugars. 4. Continue Protonix. Barrett Martinez MD [facility]/MODL /[id number]
--- NOTE | 2019-10-01 17:46 | NUR ---
he patient feels better. He is down to 20 L on Vapotherm. His FiO2 is at 60%. He is saturating in the mid 90s. He was able to the eat and drink today. PHYSICAL EXAMINATION: VITAL SIGNS: Blood pressure is 113/70. HEENT: Shows no facial swelling or erythema. CARDIAC: Reveals regular rate and rhythm with normal S1, S2. LUNGS: Auscultation of lungs reveals rhonchorous breath sounds bilaterally. There is no wheezing. ABDOMEN: Soft and nontender. There is no rebound or guarding. EXTREMITIES: Shows no leg edema or calf tenderness. There is no cyanosis or clubbing. SKIN: Shows no rashes. NEUROLOGICAL: Shows no focal abnormalities. LABORATORY DATA: Hemoglobin is 8.4 and white blood cell count is 6.7, the platelet count is 216. BUN to creatinine ratio is 9 to 1.13. The potassium is 3.3. Albumin is 1.6. RADIOGRAPHIC DATA: Chest x-ray shows bilateral infiltrates, consistent with viral pneumonia. [id number]
--- NOTE | 2019-10-01 20:22 | Progress Note ---
DATE: SUBJECTIVE: Mr. Dave Contreras remains in intensive care unit. PHYSICAL EXAMINATION: GENERAL: He is currently alert. VITAL SIGNS: Stable. He is on 20% Vapotherm, FiO2 of 60%. HEENT: He is not icteric. NECK: Supple. CHEST: Few crackles. COR: S1 and S2. ABDOMEN: Soft. IMPRESSION: COVID-19 respiratory failure. Continue with supportive care as ordered. Oxygenation is tolerated. To stop his antibiotic tomorrow, the day five. We will follow. MD DARIN Harrison/MODL /[id number]
[2019-10-01] MEDS: INSULIN GLARGINE 100 UNITS/ML VIAL SQ SCH (21:00)
[2019-10-02] VITALS (24 sets, daily range): BP systolic 96–136; BP diastolic 63–87
[2019-10-02] MEDS: VANCOMYCIN 1GM/NS 250 ML 250 ML IV SCH ×2 (04:15→17:50)
[2019-10-02 06:02] LABS: BASOPHILS % 0.4 % (0.0-1.0); EOSINOPHILS % 0.6 % (0.0-6.0); HEMATOCRIT 25.5 % (38.2-49.6); HEMOGLOBIN 8.1 g/dL (14.0-18.0); LYMPHOCYTES # (AUTO) 1.5 (1.0-3.2); MEAN CORPUSCULAR HEMOGLOBIN 28.4 pg (28-32); MEAN CORPUSCULAR HGB CONC 31.8 g/dL (31-35); MEAN CORPUSCULAR VOLUME 89.5 fL (81-99); MONOCYTES # (AUTO) 0.4 (0.2-0.8); MONOCYTES % 7.4 % (4.4-11.3); NEUTROPHILS # (AUTO) 3.4 (2.1-6.9); NEUTROPHILS % 62.9 % (38.7-80.0); PLATELET COUNT 241 x10e3/uL (140-360); RED BLOOD COUNT 2.85 x10e6/uL (4.3-5.7); RED CELL DISTRIBUTION WIDTH 14.6 % (11.7-14.4)
[2019-10-02] MEDS: MEROPENEM 1GM 100 ML IV SCH ×3 (06:15→21:03)
[2019-10-02 06:31] LABS: ALANINE AMINOTRANSFERASE 40 IU/L (0-55); ALBUMIN 1.6 g/dL (3.5-5.0); ALBUMIN/GLOBULIN RATIO 0.3 (0.8-2.0); ALKALINE PHOSPHATASE 97 IU/L (40-150); ANION GAP 8.8 mmol/L (8-16); BLOOD UREA NITROGEN 10 mg/dL (7-26); BUN/CREATININE RATIO 10 (6-25); CALCIUM 7.6 mg/dL (8.4-10.2); CARBON DIOXIDE 31 mmol/L (22-29); CHLORIDE 103 mmol/L (98-107); CREATININE, SERUM 1.04 mg/dL (0.72-1.25); EST GLOMERULAR FILTRATION RATE > 60 ML/MIN (60-); GLUCOSE 61 mg/dL (74-118); POTASSIUM 3.8 mmol/L (3.5-5.1); SODIUM 139 mmol/L (136-145)
[2019-10-02] MEDS: INSULIN LISPRO 100 UNIT/1 ML 3ML VIAL SQ SCH ×4 (07:30→20:49)
[2019-10-02] MEDS: FINASTERIDE 5 MG TAB PO SCH (09:00)
[2019-10-02] MEDS: ALLOPURINOL 100 MG TAB PO SCH (09:00)
[2019-10-02] MEDS: MUPIROCIN 2% OINT 22 GM TUBE TOP SCH ×2 (09:00→18:20)
[2019-10-02] MEDS: PANTOPRAZOLE 40 MG 10ML VIAL IV SCH ×2 (09:00→17:50)
--- NOTE | 2019-10-02 13:44 | NUR ---
this is infectious disease progress note The patient this is day of hospitalization #24 The patient remains intensive care unit with high FiO2 demand week Chart reviewed events reviewed discussed with medical team His physical admissions currently alert but weak vitals stable afebrile HEENT normocephalic neck supple chest few crackles bilateral heart S1-S2 no S3-S4 murmur abdomen soft extremities no edema. Impression Viral pneumonia on admission covid 19 Respiratory failure very slow progress Debility continue as ordered Discussed with medical team ADIOGRAPHIC DATA: Chest x-ray shows bilateral infiltrates, consistent with viral pneumonia. IMPRESSION: 1. Acute respiratory failure. 2. Viral pneumonia and COVID-19 infection. 3. Anemia secondary to chronic blood loss. 4. Diabetes. 5. Gastrointestinal bleeding. PLAN: 1. Continue to wean Vapotherm. 2. Continue to monitor blood counts. 3. Continue to monitor and control blood sugars. 4. Continue Protonix.
--- NOTE | 2019-10-02 15:23 | Progress Note ---
DATE: SUBJECTIVE: The patient is off Vapotherm and is now on 8 L. He stands with physical therapy, but is still very weak. He has had no melena. He has no nausea or vomiting. PHYSICAL EXAMINATION: VITAL SIGNS: The blood pressure is 134/80 and the saturation is 100%. Pulse is 96. HEENT: Shows no facial swelling or erythema. CARDIAC: Reveals regular rate and rhythm with normal S1 and S2. LUNGS: Auscultation of lungs reveals clear breath sounds bilaterally. There is no wheezing. ABDOMEN: Soft and nontender. There is no rebound or guarding. EXTREMITIES: Shows no leg edema or calf tenderness. There is no cyanosis or clubbing. SKIN: Shows no rashes. LABORATORY DATA: BUN to creatinine ratio is 10 to 1.04. Other electrolytes are within normal limits. Hemoglobin is 8.1 and white blood cell count is 5.44. IMPRESSION: 1. Acute respiratory failure. 2. Viral pneumonia and COVID-19. 3. Anemia secondary to chronic blood loss. 4. Diabetes. 5. Gastrointestinal bleeding. PLAN: 1. Transfer out of intensive care unit. 2. Continue physical therapy. 3. Continue to monitor and control blood sugars. 4. Continue to monitor blood counts. 5. Continue Protonix. MD MILAGROS Marte/HOWARD /[id number]
[2019-10-02] MEDS ORDERED: SODIUM CHLORIDE 0.9% 50ML 50 ML ONE (20:42)
[2019-10-02] MEDS: INSULIN GLARGINE 100 UNITS/ML VIAL SQ SCH (20:50)
--- NOTE | 2019-10-02 23:50 | NUR ---
Pt was transferred to [facility] with 02 and N-95 mask on via hospital bed accompanied by RN and PCT. Pt was connected to wall monitor. Report to BS RN.
[2019-10-03] VITALS (8 sets, daily range): BP systolic 117–138; BP diastolic 74–82
--- NOTE | 2019-10-03 | NUR ---
[facility] AAO x 3. Patient had no complaints of pain. Respirations even and non-labored on 6L high Flow NC. Fall precautions implemented. Patient instructed to call for assistance when needed. Call light within reach.
[2019-10-03] MEDS ORDERED: SODIUM CHLORIDE 0.9% 250ML 250 ML ONE (03:21)
--- NOTE | 2019-10-03 03:30 | NUR ---
Blood specimen sent to lab for analysis of cardiac enzymes.
[2019-10-03 03:48] LABS: BASOPHILS % 0.3 % (0.0-1.0); EOSINOPHILS # (AUTO) 0.1 (0.0-0.4); EOSINOPHILS % 0.8 % (0.0-6.0); HEMATOCRIT 27.8 % (38.2-49.6); HEMOGLOBIN 8.9 g/dL (14.0-18.0); LYMPHOCYTES % 30.5 % (18.0-39.1); MEAN CORPUSCULAR HEMOGLOBIN 28.9 pg (28-32); MEAN CORPUSCULAR VOLUME 90.3 fL (81-99); MONOCYTES # (AUTO) 0.5 (0.2-0.8); MONOCYTES % 6.8 % (4.4-11.3); NEUTROPHILS % 60.2 % (38.7-80.0); PLATELET COUNT 281 x10e3/uL (140-360); RED BLOOD COUNT 3.08 x10e6/uL (4.3-5.7); RED CELL DISTRIBUTION WIDTH 14.6 % (11.7-14.4)
[2019-10-03] MEDS: HYDROCODONE/CHLORPHENIRAMINE 5 ML LIQCR PO PRN (03:49)
[2019-10-03] MEDS: VANCOMYCIN 1GM/NS 250 ML 250 ML IV SCH (04:00)
[2019-10-03 04:08] LABS: ALANINE AMINOTRANSFERASE 35 IU/L (0-55); ALBUMIN 1.7 g/dL (3.5-5.0); ALBUMIN/GLOBULIN RATIO 0.3 (0.8-2.0); ALKALINE PHOSPHATASE 106 IU/L (40-150); ANION GAP 13.5 mmol/L (8-16); BLOOD UREA NITROGEN 10 mg/dL (7-26); BUN/CREATININE RATIO 9 (6-25); CALCIUM 8.1 mg/dL (8.4-10.2); CARBON DIOXIDE 30 mmol/L (22-29); CHLORIDE 98 mmol/L (98-107); CREATININE, SERUM 1.09 mg/dL (0.72-1.25); EST GLOMERULAR FILTRATION RATE > 60 ML/MIN (60-); GLUCOSE 79 mg/dL (74-118); POTASSIUM 3.5 mmol/L (3.5-5.1); SODIUM 138 mmol/L (136-145)
[2019-10-03] MEDS: MEROPENEM 1GM 100 ML IV SCH ×3 (05:46→21:13)
--- NOTE | 2019-10-03 06:37 | NUR ---
Dr. Mott paged regarding critical vancomycin level of 30.9. Awaiting call back.
--- NOTE | 2019-10-03 07:05 | NUR ---
CHANGE OF SHIFT REPORT RECEIVED FROM PM NURSE. PT IN STABLE CONDITION.
[2019-10-03] MEDS: INSULIN LISPRO 100 UNIT/1 ML 3ML VIAL SQ SCH ×4 (07:30→21:00)
[2019-10-03] MEDS: ALLOPURINOL 100 MG TAB PO SCH (10:11)
[2019-10-03] MEDS: MUPIROCIN 2% OINT 22 GM TUBE TOP SCH ×2 (10:11→17:03)
[2019-10-03] MEDS: PANTOPRAZOLE 40 MG 10ML VIAL IV SCH ×2 (10:11→17:03)
[2019-10-03] MEDS: FINASTERIDE 5 MG TAB PO SCH (10:11)
--- NOTE | 2019-10-03 16:44 | Progress Note ---
DATE: SUBJECTIVE: The patient is requiring less oxygenation. He is still weak. He is working with physical therapy. PHYSICAL EXAMINATION: VITAL SIGNS: Blood pressure is 117/74, saturation is 100% on 5 L. HEENT: Shows no facial swelling or erythema. CARDIAC: Reveals regular rate and rhythm with normal S1, S2. LUNGS: Auscultation of lungs reveals clear breath sounds bilaterally. There is no wheezing. ABDOMEN: Soft, nontender. There is no rebound or guarding. EXTREMITIES: Shows no leg edema or calf tenderness. There is no cyanosis or clubbing. SKIN: Shows no rashes. NEUROLOGICAL: Shows no focal abnormalities. LABORATORY DATA: White blood cell count is 6.6 and hemoglobin is 8.9. Platelet count is 281. BUN to creatinine ratio is 10 to 1.09. Other electrolytes are within normal limits and the albumin is 1.8. IMPRESSION: 1. Acute respiratory failure. 2. COVID pneumonia, and viral infection. 3. Diabetes. 4. Anemia secondary to chronic blood loss. PLAN: 1. Continue physical therapy. 2. Continue to monitor blood counts. 3. Continue Protonix. 4. Discussed disposition with Dr. Henry and Case Management. Barrett Martinez MD LM/HOWARD /[id number]
--- NOTE | 2019-10-03 18:50 | Progress Note ---
DATE: SUBJECTIVE: Mr. Contreras is doing well. There is no new complaint. PHYSICAL EXAMINATION: GENERAL: He is currently alert. VITAL SIGNS: Stable, currently afebrile. HEENT: He is not icteric. NECK: Supple. CHEST: Clear. COR: S1 and S2. ABDOMEN: Soft. Bowel sounds present. EXTREMITIES: No edema. Mr. Contreras has been here for 25 days. IMPRESSION: 1. COVID-19 respiratory failure, improving. 2. Debility. 3. Anemia. 4. Diabetes mellitus. Continue with PT/OT. Continue to monitor glucose. The patient is not infectious at the present time. Ruth Mott MD [facility]/MODL /[id number]
--- NOTE | 2019-10-03 19:09 | NUR ---
CHANGE OF SHIFT REPORT GIVEN TO KARY ASH. PT IN STABLE CONDITION.
--- NOTE | 2019-10-03 19:20 | NUR ---
Patient received sitting up in bed. AAO x 3. No acute distress noted. Safety measures in place. Call light within reach.
[2019-10-03] MEDS: INSULIN GLARGINE 100 UNITS/ML VIAL SQ SCH (21:00)
[2019-10-04] VITALS (8 sets, daily range): BP systolic 112–131; BP diastolic 67–83
--- NOTE | 2019-10-04 02:30 | NUR ---
Dr. Suhail Palomares here to see patient. Patient complained of not having bowel movements for the past 3 days. New order received for Milk of Magnesia 15 mg PRN.
[2019-10-04] MEDS: MAGNESIUM HYDROXIDE 30 ML UDC PO PRN ×2 (03:16→22:08)
[2019-10-04 04:58] LABS: BASOPHILS % 0.5 % (0.0-1.0); EOSINOPHILS # (AUTO) 0.1 (0.0-0.4); EOSINOPHILS % 1.2 % (0.0-6.0); HEMATOCRIT 27.3 % (38.2-49.6); HEMOGLOBIN 8.5 g/dL (14.0-18.0); LYMPHOCYTES % 34.3 % (18.0-39.1); MEAN CORPUSCULAR HEMOGLOBIN 28.3 pg (28-32); MEAN CORPUSCULAR HGB CONC 31.1 g/dL (31-35); MONOCYTES # (AUTO) 0.5 (0.2-0.8); MONOCYTES % 8.6 % (4.4-11.3); NEUTROPHILS # (AUTO) 3.2 (2.1-6.9); NEUTROPHILS % 54.2 % (38.7-80.0); PLATELET COUNT 305 x10e3/uL (140-360); RED CELL DISTRIBUTION WIDTH 14.4 % (11.7-14.4)
[2019-10-04 05:26] LABS: ALANINE AMINOTRANSFERASE 27 IU/L (0-55); ALBUMIN 1.7 g/dL (3.5-5.0); ALBUMIN/GLOBULIN RATIO 0.3 (0.8-2.0); ALKALINE PHOSPHATASE 101 IU/L (40-150); BLOOD UREA NITROGEN 10 mg/dL (7-26); BUN/CREATININE RATIO 10 (6-25); CARBON DIOXIDE 32 mmol/L (22-29); CHLORIDE 98 mmol/L (98-107); CREATININE, SERUM 1.02 mg/dL (0.72-1.25); EST GLOMERULAR FILTRATION RATE > 60 ML/MIN (60-); GLUCOSE 141 mg/dL (74-118); SODIUM 137 mmol/L (136-145)
[2019-10-04] MEDS: MEROPENEM 1GM 100 ML IV SCH ×3 (05:31→21:34)
[2019-10-04] MEDS: PANTOPRAZOLE 40 MG 10ML VIAL IV SCH ×2 (08:34→16:33)
[2019-10-04] MEDS: MUPIROCIN 2% OINT 22 GM TUBE TOP SCH ×2 (08:34→16:33)
[2019-10-04] MEDS: ALLOPURINOL 100 MG TAB PO SCH (08:34)
[2019-10-04] MEDS: FINASTERIDE 5 MG TAB PO SCH (08:34)
[2019-10-04] MEDS: INSULIN LISPRO 100 UNIT/1 ML 3ML VIAL SQ SCH ×4 (09:39→22:07)
--- NOTE | 2019-10-04 12:48 | NUR ---
SNF EVAL ORDERED
--- NOTE | 2019-10-04 13:29 | Progress Note ---
DATE: SUBJECTIVE: The patient continues to be weak. He is requiring attention with physical therapy. He is standing with assistance. PHYSICAL EXAMINATION: VITAL SIGNS: The patient is saturating 100% on 5 L. His pulse is 100. HEENT: Shows no facial swelling or erythema. CARDIAC: Reveals regular rate and rhythm with normal S1 and S2. LUNGS: Auscultation of lungs reveals rhonchorous breath sounds bilaterally. There is no wheezing. ABDOMEN: Soft and nontender. There is no rebound or guarding. EXTREMITIES: Shows no leg edema or calf tenderness. There is no cyanosis or clubbing. SKIN: Shows no rashes. NEUROLOGICAL: Shows no focal abnormalities. LABORATORY DATA: White blood cell count is 5.9, hemoglobin is 8.5, and the platelet count is 305. BUN to creatinine ratio is 10 to 1.02 and other electrolytes are within normal limits. Albumin is 1.7. IMPRESSION: 1. Acute respiratory failure. 2. COVID-19 and viral pneumonia. 3. Diabetes. 4. Anemia secondary to chronic blood loss. PLAN: 1. Continue physical therapy. 2. Continue to monitor blood counts. 3. Continue Protonix. 4. intermediate placement. MD MILAGROS Marte/HOWARD /[id number]
--- NOTE | 2019-10-04 14:05 | NUR ---
SPOKE WITH SON, ABOUT THE DIFFERENT FACILITIES, HE WOULD PREFER THE PT TO GO TO [place]. CALLED REP AND ASKED ABOUT AVAILABLE BEDS, HE STATES THEY HAVE BEDS, BUT WILL NOT TAKE A POSITIVE PT. ADVISED THAT THE PATIENT TESTED POSITIVE ON 09/08/19 AND HAS NOT BEEN SYMPTOMATIC SINCE ADMISSION. HE STATES THEY NEED 2 NEGATIVE TESTS BEFORE THEY CAN ACCEPT THE PT, I ADVISED THEM OF THE CDC GUIDELINES PUT OUT AND UPDATED OF MONDAY THAT STATES THERE IS NO NEED TO TEST AGAIN, I SPOKE WITH DR WILEY AND HE OFFERED TO SPEAK WITH THEM, THEY DECLINED THE PT.
--- NOTE | 2019-10-04 15:01 | NUR ---
[facility] CALLED BACK AND STATES THEY ARE PROCESSING THE REFERRAL
--- NOTE | 2019-10-04 15:25 | NUR ---
CALLED SON LET KNOW [facility] IS PROCESSING THE REFERRAL, GAVE ADDRESS AND PHONE NUMBER TO [facility], HE APPROVES. EDUCATED ABOUT IMM, HE APPROVED, FILED ALL IN CHART, COMPLETED PASRR AND COVID FORM AND SENT TO FACILITY
--- NOTE | 2019-10-04 15:56 | NUR ---
Nutrition Screen Note RD Recommendation for Physician: - Continue current diet regimen Plan of Care: RD following monitoring for tolerance and adequacy Nutrition reason for involvement: follow up Primary Diagnose(s): Hyperglycemia, Pneumonia due to COVID - 19 PMH: T2DM, HTN, overweight/obesity, Gout, dyslipidemia, DM pneuropathy, reflux, Ht:67 in Wt: 193 lbs (10/03) 192 lbs (09/26) 217 lbs (09/18) 220.25 lbs (09/13) BMI:30.3 kg/m2 IBW: [address] Assessment: 10/03: Follow up. Chart reviewed. Pt was previously on a full liquid diet and is now advanced to ADA diet with Glucerna nutrition supplements TID. It is recorded pt consumed 75% of liquid meals yesterday. Pt has not had a BM recorded since 09/29. Unable to verify weight status with pt. Will continue to monitor. 09/26: Follow up. Chart reviewed. Attempted to call pt over the phone, but he did not answer. Last recorded meal intake amount was 50-100% on 09/22. Unable to verify weight status with pt at this time. If PO intake <50% of meals, recommend to offer the pt a Glucerna nutrition supplement. Will continue to monitor. 09/19: Follow up. Unable to speak to pt. Pt has varied intake. It is recorded pt consumed 0% of meals on 09/16 and was previously consuming 25-100% of meals. If PO intake <50% of meals, recommend to offer the pt a Glucerna nutrition supplement. Will continue to monitor. (09/13) Initial encounter with patient. Diet Hx: Pt denies any known food allergies. Medications: reviewed: on Vitamin C, zinc sulfate, lasix. Pt was eating breakfast at time of visit and only had C/O coughing due to COVID-19 pneumonia. Pt denies any difficulty chewing or swallowing nor has any nausea or vomiting. 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 No significant wt changes. Pt is able to feed himself. Biochemical data reviewed. Hyperglycemia POC 279 on 09/12 Current Diet: 1800 ADA, Glucerna TID Malnutrition Evaluation (09/14/2019) The patient does not meet criteria for a specified degree of malnutrition at this time. Will re-evaluate at follow-up as appropriate. Diet Education Needs Assessment: RD is available for diet education as needed Diet tolerance: tolerating PO Nutrition Care Level: low Signed: Nica Rodriguez RD, LD
--- NOTE | 2019-10-04 16:10 | NUR ---
VITAL SIGNS: The patient is afebrile. The blood pressure is 180/84 and saturation is 96%. HEENT: Shows no facial swelling or erythema. There is an oral endotracheal tube. He has a PICC line in place as well as an arterial line. CARDIAC: Reveals regular rate and rhythm with normal S1 and S2. LUNGS: Auscultation of lungs reveals rhonchorous breath sounds bilaterally. There is no wheezing. ABDOMEN: Soft and nontender. There is no rebound or guarding. EXTREMITIES: There is no leg edema. LABORATORY DATA: White blood cell count is 6 and the hemoglobin is 7.5. The platelet count is 165. The BUN to creatinine ratio is normal. The other electrolytes are within normal limits. The albumin is 2.0. [id number]
--- NOTE | 2019-10-04 19:20 | NUR ---
Patient received sitting up in bed. AAO x 3. No complaints of pain or respiratory distress. Fall precautions implemented. Patient instructed to call for assistance when needed. Call light within reach.
--- NOTE | 2019-10-04 19:41 | Progress Note ---
DATE: SUBJECTIVE: Mr. Contreras is doing better. There are no new complaints. He is weak, but there are no new complaints. PHYSICAL EXAMINATION: GENERAL: He is currently alert, oriented. VITAL SIGNS: Stable, afebrile. HEENT: Not icteric. NECK: Supple. CHEST: Crackles bilateral. HEART: S1 and S2. ABDOMEN: Soft. Bowel sounds present. EXTREMITIES: No edema. SKIN: No rash. This is day #26 of hospitalization. IMPRESSION: Respiratory failure, improving coronavirus disease 19. The patient has been here more than 26 days, so he is not infectious anymore, even if positive PCR that does not reflect active viral nature of like virus particle. Patient could be removed from droplet isolation. We can continue with mask. He could be discharged home or skilled care facility. He does not need to be in any facility where there is a COVID isolation at the present time. This was discussed with the medical team. This was discussed with discharge planning. He was diagnosed with coronavirus disease 19 few days before admissions even so he is not infectious, that is according to the new guidelines of . This was discussed with old medical team. Continue PT, OT, and supportive care. MD DARIN Harrison/HOWARD /[id number]
[2019-10-04] MEDS: INSULIN GLARGINE 100 UNITS/ML VIAL SQ SCH (21:00)
[2019-10-04] MEDS: HYDROCODONE/CHLORPHENIRAMINE 5 ML LIQCR PO PRN (22:08)
[2019-10-05] VITALS (8 sets, daily range): BP systolic 113–139; BP diastolic 64–89
[2019-10-05 05:56] LABS: BASOPHILS # (AUTO) 0.1 (0.0-0.1); BASOPHILS % 0.6 % (0.0-1.0); EOSINOPHILS # (AUTO) 0.1 (0.0-0.4); EOSINOPHILS % 0.9 % (0.0-6.0); HEMATOCRIT 27.5 % (38.2-49.6); HEMOGLOBIN 8.6 g/dL (14.0-18.0); LYMPHOCYTES # (AUTO) 3.3 (1.0-3.2); LYMPHOCYTES % 43.3 % (18.0-39.1); MEAN CORPUSCULAR HEMOGLOBIN 29.1 pg (28-32); MEAN CORPUSCULAR HGB CONC 31.3 g/dL (31-35); MEAN CORPUSCULAR VOLUME 92.9 fL (81-99); MONOCYTES # (AUTO) 0.6 (0.2-0.8); MONOCYTES % 7.4 % (4.4-11.3); NEUTROPHILS # (AUTO) 3.6 (2.1-6.9); NEUTROPHILS % 46.5 % (38.7-80.0); PLATELET COUNT 330 x10e3/uL (140-360); RED BLOOD COUNT 2.96 x10e6/uL (4.3-5.7)
[2019-10-05] MEDS: MEROPENEM 1GM 100 ML IV SCH ×3 (06:26→22:10)
[2019-10-05 06:38] LABS: ALANINE AMINOTRANSFERASE 23 IU/L (0-55); ALBUMIN 1.8 g/dL (3.5-5.0); ALBUMIN/GLOBULIN RATIO 0.3 (0.8-2.0); ALKALINE PHOSPHATASE 94 IU/L (40-150); BLOOD UREA NITROGEN 10 mg/dL (7-26); BUN/CREATININE RATIO 10 (6-25); CALCIUM 7.9 mg/dL (8.4-10.2); CARBON DIOXIDE 32 mmol/L (22-29); CHLORIDE 99 mmol/L (98-107); CREATININE, SERUM 0.98 mg/dL (0.72-1.25); EST GLOMERULAR FILTRATION RATE > 60 ML/MIN (60-); GLUCOSE 110 mg/dL (74-118); SODIUM 138 mmol/L (136-145)
[2019-10-05] MEDS: INSULIN LISPRO 100 UNIT/1 ML 3ML VIAL SQ SCH ×4 (07:30→21:19)
[2019-10-05] MEDS: PANTOPRAZOLE 40 MG 10ML VIAL IV SCH ×2 (08:04→16:20)
[2019-10-05] MEDS: ALLOPURINOL 100 MG TAB PO SCH (08:05)
[2019-10-05] MEDS: FINASTERIDE 5 MG TAB PO SCH (08:05)
[2019-10-05] MEDS: MUPIROCIN 2% OINT 22 GM TUBE TOP SCH (09:04)
--- NOTE | 2019-10-05 17:20 | Progress Note ---
DATE: SUBJECTIVE: Mr. Contreras is doing well. He remains on oxygen. REVIEW OF SYSTEMS: He is just weak, but slowly getting better. PHYSICAL EXAMINATION: GENERAL: He is currently alert and oriented. VITAL SIGNS: Stable and afebrile. HEENT: He is not icteric. NECK: Supple. CHEST: Clear. HEART: S1, S2. ABDOMEN: Soft. The patient is day #27 hospitalization. IMPRESSION: Respiratory failure COVID-19 slowly getting better. Once we get out in we will discharge to home, but because of debility the plan for him to go for skilled care facility will discuss the case management. MD DARIN Harrison/HOWARD /[id number]
--- NOTE | 2019-10-05 19:30 | NUR ---
BEDSIDE SHIFT REPORT RECEIVED FO DAY RN. PT IS ALERT AND ORIENTED X3. PT WEARING VENTIMASK 50%- O2 SAT 100%. RESPIRATIONS ARE EVEN AND UNLABORED. PICC DL IN RT UPPER ARM. SITE HEALTHY AND DRESSING DRY AND INTACT. NS INFUSING AT 5ML/HR. PT USING URINAL WITH ASSISTANCE. HOB IS ELEVATED. PT DENIES PAIN. CALL LIGHT WITHIN REACH. BED LOCKED AND AT LOW POSITION.
[2019-10-05] MEDS: INSULIN GLARGINE 100 UNITS/ML VIAL SQ SCH (21:21)
[2019-10-05] MEDS: HYDROCODONE/CHLORPHENIRAMINE 5 ML LIQCR PO PRN (22:16)
[2019-10-06] VITALS (8 sets, daily range): BP systolic 111–161; BP diastolic 71–91
[2019-10-06] MEDS ORDERED: BISACODYL 5 MG TAB EC PO STA (00:34)
[2019-10-06] MEDS: MEROPENEM 1GM 100 ML IV SCH ×3 (06:11→21:52)
[2019-10-06] MEDS: INSULIN LISPRO 100 UNIT/1 ML 3ML VIAL SQ SCH ×4 (07:24→21:34)
[2019-10-06] MEDS: ALLOPURINOL 100 MG TAB PO SCH (09:32)
[2019-10-06] MEDS: PANTOPRAZOLE 40 MG 10ML VIAL IV SCH ×2 (09:32→16:29)
[2019-10-06] MEDS: FINASTERIDE 5 MG TAB PO SCH (09:32)
--- NOTE | 2019-10-06 14:32 | Progress Note ---
DATE: SUBJECTIVE: Mr. Contreras is well. REVIEW OF SYSTEMS: He remains short of breath and weak, but overall he is slowly getting better. PHYSICAL EXAMINATION: GENERAL: He is currently alert. VITAL SIGNS: Stable, afebrile. HEENT: He is not icteric. NECK: Supple. CHEST: Clear. HEART: S1, S2. No murmur. ABDOMEN: Soft. Bowel sounds present. EXTREMITIES: No edema. SKIN: No rashes. IMPRESSION: Day #28 from hospitalization. The patient will be discharged to skilled care facility for PT/OT. Continue anticoagulation as ordered. Can be given low-dose of anticoagulation such as Eliquis 2.5 mg p.o. b.i.d. for another 60 days. Oxygen as needed, PT/OT, albuterol for cough. The patient in no need to be on isolation for COVID-19, given his PCR was positive since he has been sick for more than 28 days. MD DARIN Harrison/HOWARD /[id number]
--- NOTE | 2019-10-06 19:15 | NUR ---
BEDSIDE SHIFT REPORT RECEIVED FROM DAY RN. PT IS ALERT AND ORINETED X3. PT WEARS VENTI MASK 15L O2 50% O2 ALL THE TIME BUT MEAL. PT WEARS N/C HIGHFLOW WITH MEALS. RESPIRATIONS ARE EVEN AND UNLABORED .COUGHING LESS TODAY. TELE ON.PT REPORTS HAD BM YESTERDAY AFTER DULCOLAX GIVEN. TAMIKO PICC LINE DL PATENT - SL. DRESSING TO PICC DRY AND INTACT. SITE HEALTHY. PT VOIDING PER URINAL WITH ASSISTANCE. CALL LIGHT WITHIN REACH. BED LOCKED AND IN LOW POSITION.
[2019-10-06] MEDS: INSULIN GLARGINE 100 UNITS/ML VIAL SQ SCH (21:35)
[2019-10-07] VITALS (8 sets, daily range): BP systolic 123–136; BP diastolic 73–83
[2019-10-07] MEDS: SALINE 0.65% NAS SOLN 1 SPRAY BTL PRN ×2 (00:53→19:45)
[2019-10-07] MEDS ORDERED: SODIUM CHLORIDE 0.9% 250ML 250 ML ONE ×2 (01:05→21:04)
[2019-10-07] MEDS: ACETAMINOPHEN 325 MG TAB PO PRN (01:09)
[2019-10-07] MEDS: MEROPENEM 1GM 100 ML IV SCH ×3 (06:09→21:06)
[2019-10-07] MEDS: INSULIN LISPRO 100 UNIT/1 ML 3ML VIAL SQ SCH ×4 (07:30→21:06)
[2019-10-07] MEDS: PANTOPRAZOLE 40 MG 10ML VIAL IV SCH ×2 (08:28→16:23)
[2019-10-07] MEDS: ALLOPURINOL 100 MG TAB PO SCH (08:28)
[2019-10-07] MEDS: FINASTERIDE 5 MG TAB PO SCH (08:28)
--- NOTE | 2019-10-07 08:40 | NUR ---
CALLED FACILITY STILL PENDING, SHOULD HAVE AN ANSWER TODAY.
[2019-10-07] MEDS ORDERED: BUPIVACAINE 0.25%/EPI 30ML SDV INJ ONE (11:24)
--- NOTE | 2019-10-07 11:31 | NUR ---
Patient c/o his nostrils are dry on Vent mask 50% O2, Bosque spray applied on both, he said he feel better now, Respiratory therapist at bed side
--- NOTE | 2019-10-07 13:51 | NUR ---
He remains short of breath and weak, but overall he is slowly getting better. PHYSICAL EXAMINATION: GENERAL: He is currently alert. VITAL SIGNS: Stable, afebrile. HEENT: He is not icteric. NECK: Supple. CHEST: Clear. HEART: S1, S2. No murmur. ABDOMEN: Soft. Bowel sounds present. EXTREMITIES: No edema. SKIN: No rashes. IMPRESSION: Day #28 from hospitalization. The patient will be discharged to skilled care facility for PT/OT. Continue anticoagulation as ordered. Can be given low-dose of anticoagulation such as Eliquis 2.5 mg p.o. b.i.d. for another 60 days. Oxygen as needed, PT/OT, albuterol for cough. The patient in no need to be on isolation for COVID-19, given his PCR was positive since he has been sick for more than 28 days. [id number]
[2019-10-07] MEDS: ALPRAZOLAM 0.25 MG TAB PO PRN ×2 (15:25→23:44)
--- NOTE | 2019-10-07 16:45 | NUR ---
ST NOTE: Spoke with KARY Vasquez and JASKARAN Nguyen. Pt is tolerating upgraded diet to solids with no difficulties noted. Will continue to monitor from chart reviews until pt is d/c from hospital.
--- NOTE | 2019-10-07 16:59 | Progress Note ---
DATE: SUBJECTIVE: Mr. Contreras is alert and comfortable. No new complaints. REVIEW OF SYSTEMS: Otherwise unremarkable. We are still waiting on discharge planning for him. PHYSICAL EXAMINATION: GENERAL: He is currently alert, oriented. VITAL SIGNS: Stable, afebrile. HEENT: He is not icteric. NECK: Supple. CHEST: Few crackles bilateral. HEART: S1, S2. ABDOMEN: Soft. EXTREMITIES: No edema. SKIN: No rash. IMPRESSION: There is no change. Awaiting on discharge planning. Discussed with medical team at length. MD DARIN Harrison/MODL /[id number]
--- NOTE | 2019-10-07 19:55 | Progress Note ---
DATE: SUBJECTIVE: The patient is feeling better. He complains of a sore in his nose and some nasal obstruction. He has difficulty tolerating nasal cannula and is currently on a Venturi mask. PHYSICAL EXAMINATION: VITAL SIGNS: The patient is afebrile. Blood pressure is 123/80 and the saturation is 100% on a Venturi mask at 50%. Heart rate is 106. HEENT: Shows some abrasion and sore in the infranasal area on the left side. CARDIAC: Reveals regular rate and rhythm with normal S1 and S2. LUNGS: Auscultation of lungs reveals crackles at the bases. There is no wheezing. ABDOMEN: Soft and nontender. There is no rebound or guarding. EXTREMITIES: Shows no leg edema or calf tenderness. There is no cyanosis or clubbing. SKIN: Shows no rashes. NEUROLOGICAL: Shows no focal abnormalities. IMPRESSION: 1. Acute respiratory failure. 2. Viral pneumonia and COVID-19. 3. Diabetes. 4. Anemia secondary to chronic blood loss. PLAN: 1. Continue oxygen. 2. Physical therapy. 3. Discussed disposition with Dr. Henry and case management. Barrett Martinez MD [facility]/MODL /[id number]
[2019-10-07] MEDS: INSULIN GLARGINE 100 UNITS/ML VIAL SQ SCH (21:06)
[2019-10-07] MEDS ORDERED: GUAIFENESIN/CODEINE 10 ML CUP PO PRN (23:45)
--- NOTE | 2019-10-08 03:30 | NUR ---
DAILY CHG BATH GIVEN. CENTRAL LINE CARE PROVIDED. NEW PORTS APPLIED, SALINE FLUSH TO EACH LUMEN, AND ALCOHOL CAPS.
[2019-10-08 04:00] VITALS: BP 136/73
[2019-10-08] MEDS: MEROPENEM 1GM 100 ML IV SCH ×2 (05:23→14:09)
--- NOTE | 2019-10-08 07:05 | NUR ---
REPORT GIVEN TO DAYSHIFT NURSE. ALERT AND ORIENTED. NO SIGNS IV INFILTRATION. BED LOCKED AND IN LOW POSITION. CALL LIGHT WITHIN REACH. BED ALARM ACTIVATED.
[2019-10-08] MEDS: INSULIN LISPRO 100 UNIT/1 ML 3ML VIAL SQ SCH ×3 (07:30→16:46)
[2019-10-08 08:00] VITALS: BP 118/69
[2019-10-08] MEDS: ALLOPURINOL 100 MG TAB PO SCH (08:28)
[2019-10-08] MEDS: PANTOPRAZOLE 40 MG 10ML VIAL IV SCH ×2 (08:28→16:46)
[2019-10-08] MEDS: FINASTERIDE 5 MG TAB PO SCH (08:28)
[2019-10-08 08:51] VITALS: BP 118/69
--- NOTE | 2019-10-08 09:05 | NUR ---
Patient u in bed, Alert with No distress, tolerated breakfast, On Vent mask 50% of Oxygen, call light in reach
[2019-10-08 10:15] LABS: BASOPHILS % 0.5 % (0.0-1.0); EOSINOPHILS # (AUTO) 0.1 (0.0-0.4); LYMPHOCYTES % 34.3 % (18.0-39.1); MEAN CORPUSCULAR HEMOGLOBIN 28.5 pg (28-32); MEAN CORPUSCULAR HGB CONC 30.8 g/dL (31-35); MEAN CORPUSCULAR VOLUME 92.5 fL (81-99); MONOCYTES # (AUTO) 0.7 (0.2-0.8); MONOCYTES % 7.9 % (4.4-11.3); NEUTROPHILS # (AUTO) 4.8 (2.1-6.9); NEUTROPHILS % 55.5 % (38.7-80.0); PLATELET COUNT 317 x10e3/uL (140-360); RED BLOOD COUNT 2.81 x10e6/uL (4.3-5.7)
[2019-10-08 10:45] LABS: ANION GAP 11.7 mmol/L (8-16); BLOOD UREA NITROGEN 13 mg/dL (7-26); BUN/CREATININE RATIO 13 (6-25); CALCIUM 8.1 mg/dL (8.4-10.2); CARBON DIOXIDE 31 mmol/L (22-29); CHLORIDE 101 mmol/L (98-107); CREATININE, SERUM 0.99 mg/dL (0.72-1.25); EST GLOMERULAR FILTRATION RATE > 60 ML/MIN (60-); GLUCOSE 142 mg/dL (74-118); POTASSIUM 3.7 mmol/L (3.5-5.1); SODIUM 140 mmol/L (136-145)
[2019-10-08 12:00] VITALS: BP 116/74
--- NOTE | 2019-10-08 13:13 | NUR ---
FAXED UPDATES TO [facility] REQUESTED.
[2019-10-08 16:00] VITALS: BP 127/76
--- NOTE | 2019-10-08 18:08 | NUR ---
patient resting in bed, alert with no distress, pierre light in reach
[2019-10-08 20:00] VITALS: BP 127/84
--- NOTE | 2019-10-08 20:00 | Progress Note ---
DATE: SUBJECTIVE: Mr. Contreras is doing well. No new complaints. OBJECTIVE: VITAL SIGNS: Stable, currently afebrile. HEENT: He is not icteric. NECK: Supple. CHEST: Clear. HEART: S1, S2. ABDOMEN: Soft. Bowel sounds present. No tenderness. No hepatosplenomegaly. EXTREMITIES: No edema. SKIN: No rashes IMPRESSION: 1. COVID-19 respiratory failure. 2. Debility. 3. Diabetes mellitus. The patient is stable, so waiting on discharge planning. No new recommendation. Continue as ordered, PT, OT, etc. MD DARIN Harrison/MODL /[id number]
[2019-10-08] MEDS: INSULIN GLARGINE 100 UNITS/ML VIAL SQ SCH (20:54)
--- NOTE | 2019-10-08 21:00 | Progress Note ---
DATE: SUBJECTIVE: The patient is standing a little bit and walking a little bit with physical therapy. He remains on a face mask. PHYSICAL EXAMINATION: VITAL SIGNS: The patient is afebrile. The blood pressure is 127/76. He is saturating 100% on 50% facemask. He is afebrile. HEENT: Shows no facial swelling or erythema. CARDIAC: Reveals regular rate and rhythm with normal S1 and S2. LUNGS: Auscultation of lungs is rhonchorous breath sounds bilaterally. There is no wheezing. ABDOMEN: Soft, nontender. There is no rebound or guarding. EXTREMITIES: Shows no leg edema or calf tenderness. There is no cyanosis or clubbing. SKIN: Shows no rashes. NEUROLOGICAL: Shows no focal abnormalities. LABORATORY DATA: CBC is within normal limits. IMPRESSION: 1. Acute respiratory failure. 2. Viral pneumonia and coronavirus disease-2019 infection. 3. Diabetes. 4. Anemia secondary to chronic blood loss. PLAN: 1. Continue oxygen. 2. Physical therapy. 3. Continue to await for possible placement for further rehab. Barrett Martinez MD LM/CAROLINAL /[id number]
[2019-10-09] VITALS (9 sets, daily range): BP systolic 116–129; BP diastolic 66–80
--- NOTE | 2019-10-09 03:15 | NUR ---
CENTRAL LINE CARE PROVIDED. DAILY CHG BATH GIVEN. NEW PORTS APPLIED AND SALINE FLUSHES TO EACH LUMEN. ALCOHOL CAPS APPLIED.
--- NOTE | 2019-10-09 07:06 | NUR ---
REPORT GIVEN TO DAYSHIFT NURSE. RESTING IN BED. NO ADVERSE SIGNS OR SYMPTOMS. NO SIGNS IV INFILTRATION. BED LOCKED AND IN LOW POSITION. CALL LIGHT WITHIN REACH. BED ALARM ACTIVATED.
[2019-10-09] MEDS: SALINE 0.65% NAS SOLN 1 SPRAY BTL PRN (08:09)
[2019-10-09] MEDS: PANTOPRAZOLE 40 MG 10ML VIAL IV SCH ×2 (08:09→16:15)
--- NOTE | 2019-10-09 08:35 | Diagnostic Imaging Report ---
EXAM: CHEST SINGLE (PORTABLE) DATE: 10/09/2019 4:50 AM INDICATION: Pneumonia COMPARISON: 10/01/2019 FINDINGS: Right-sided PICC line identified in stable position. Again identified are patchy increased interstitial and airspace opacities throughout the lungs bilaterally, similar to the prior examination. There is no evidence for pneumothorax or significant volume pleural effusion. The cardiomediastinal silhouette is stable in appearance. No acute osseous abnormality is identified. IMPRESSION: No significant interval change from 10/01/2019. Grossly stable appearing airspace opacities identified throughout the lungs bilaterally which can be seen in the setting of a multifocal/viral infectious process. Signed by: Dr. Ulises Davis MD on 10/09/2019 8:32 AM
[2019-10-09] MEDS: MAGNESIUM HYDROXIDE 30 ML UDC PO PRN (10:14)
--- NOTE | 2019-10-09 10:58 | Progress Note ---
DATE: SUBJECTIVE: The patient is still afebrile. He remains on a high-flow nasal cannula at 10 L. PHYSICAL EXAMINATION: VITAL SIGNS: Blood pressure is 128/73 and pulse is 103. Saturations are 100%. HEENT: Shows no facial swelling or erythema. CARDIAC: Reveals regular rate and rhythm with normal S1 and S2. LUNGS: Auscultation of lungs reveals rhonchorous breath sounds bilaterally. There is wheezing. ABDOMEN: Soft and nontender. There is no rebound or guarding. EXTREMITIES: Shows no leg edema or calf tenderness. There is no cyanosis or clubbing. SKIN: Shows no rashes. NEUROLOGICAL: Shows no focal abnormalities. LABORATORY DATA: CMP is within normal limits. IMPRESSION: 1. Acute respiratory failure that is improving. 2. Viral pneumonia and COVID-19 infection. 3. Anemia secondary to chronic blood loss. PLAN: 1. Continue physical therapy. 2. Continue to wean oxygen. 3. Continue to monitor blood counts. 4. Continue to monitor and control blood sugars. 5. Await potential transfer to rehab. Barrett Martinez MD [facility]/MODL /[id number]
--- NOTE | 2019-10-09 13:56 | NUR ---
Patient continue to desaturate and shows high HR even with minimal mobility, unable to tolerate skilled PT services at this time. Advised nursing to get the patient up in to chair on a daily basis. Discontinuing PT services since patient is not able to tolerate at this time.Thank you Addendum: 10/09/19 at 1359 by Pepe muñoz PT Amended: Links added.
--- NOTE | 2019-10-09 15:04 | NUR ---
Patient's blood sugar is 405. Patient does not have any insulin coverage. Dr. Luca Henry was called immediately and this entry writer is awaiting a call back. Will continue to closely monitor and will call back if no return call in 30 minutes. Addendum: 10/09/19 at 1605 by Nubia Kunz RN Dr. Henry was called again and he ordered a Humalog order "set." This entry writer put the order in and gave 20 units of Humalog.
[2019-10-09] MEDS ORDERED: DEXTROSE 50% SYRINGE 50 ML IV PRN (16:00)
[2019-10-09] MEDS: INSULIN LISPRO 100 UNIT/1 ML 3ML VIAL SQ SCH ×2 (16:20→21:31)
--- NOTE | 2019-10-09 17:34 | NUR ---
PHYSICAL EXAMINATION: VITAL SIGNS: Blood pressure is 128/73 and pulse is 103. Saturations are 100%. HEENT: Shows no facial swelling or erythema. CARDIAC: Reveals regular rate and rhythm with normal S1 and S2. LUNGS: Auscultation of lungs reveals rhonchorous breath sounds bilaterally. There is wheezing. ABDOMEN: Soft and nontender. There is no rebound or guarding. EXTREMITIES: Shows no leg edema or calf tenderness. There is no cyanosis or clubbing. SKIN: Shows no rashes. NEUROLOGICAL: Shows no focal abnormalities. LABORATORY DATA: CMP is within normal limits. [id number]
--- NOTE | 2019-10-09 19:23 | NUR ---
RECEIVED PATIENT IN BED TALKING TO FAMILY MEMBER. PATIENT IS ALERT AND ORIENTED. NO COMPLAIN AT THIS TIME. CALL LIGHT WITHIN REACH.
--- NOTE | 2019-10-09 19:39 | Progress Note ---
DATE: SUBJECTIVE: Mr. Contreras is doing better. No new complaints. There was still waiting on discharge planning. PHYSICAL EXAMINATION: GENERAL: He is currently alert and oriented. VITAL SIGNS: Stable, afebrile. HEENT: He is not icteric. NECK: Supple. CHEST: Clear. HEART: S1, S2. ABDOMEN: Soft. LABORATORY DATA: Reviewed, chart reviewed. IMPRESSION: COVID-19, respiratory failure, improved, but still waiting on discharge planning. Continue PT/OT. Stable from Infectious Disease point of view. MD DARIN Harrison/MODL /[id number]
[2019-10-09] MEDS: ALPRAZOLAM 0.25 MG TAB PO PRN (21:30)
[2019-10-09] MEDS: INSULIN GLARGINE 100 UNITS/ML VIAL SQ SCH (21:31)
--- NOTE | 2019-10-09 21:45 | NUR ---
PICC LINE DRESSING CHANGED. PATIENT GROIN DRIED AND CREAM APPLIED.
[2019-10-10] VITALS (7 sets, daily range): BP systolic 110–127; BP diastolic 67–85
[2019-10-10] MEDS ORDERED: BISACODYL 5 MG TAB EC PO ONE (05:00)
[2019-10-10] MEDS: INSULIN LISPRO 100 UNIT/1 ML 3ML VIAL SQ SCH ×4 (07:30→21:15)
--- NOTE | 2019-10-10 07:59 | NUR ---
PT DISCONTINUED DUE TO PT NOT BEING STABLE, NO IV ABX, WILL NEED MORE STABLE TO SEND TO SNF
[2019-10-10 08:13] LABS: BASOPHILS # (AUTO) 0.1 (0.0-0.1); BASOPHILS % 0.6 % (0.0-1.0); EOSINOPHILS # (AUTO) 0.1 (0.0-0.4); EOSINOPHILS % 1.2 % (0.0-6.0); HEMATOCRIT 24.6 % (38.2-49.6); HEMOGLOBIN 7.5 g/dL (14.0-18.0); LYMPHOCYTES # (AUTO) 3.2 (1.0-3.2); LYMPHOCYTES % 41.7 % (18.0-39.1); MEAN CORPUSCULAR HEMOGLOBIN 28.2 pg (28-32); MEAN CORPUSCULAR HGB CONC 30.5 g/dL (31-35); MEAN CORPUSCULAR VOLUME 92.5 fL (81-99); MONOCYTES # (AUTO) 0.7 (0.2-0.8); MONOCYTES % 9.2 % (4.4-11.3); NEUTROPHILS # (AUTO) 3.6 (2.1-6.9); NEUTROPHILS % 46.7 % (38.7-80.0); PLATELET COUNT 363 x10e3/uL (140-360); RED BLOOD COUNT 2.66 x10e6/uL (4.3-5.7); RED CELL DISTRIBUTION WIDTH 14.1 % (11.7-14.4)
[2019-10-10] MEDS: PANTOPRAZOLE 40 MG 10ML VIAL IV SCH ×2 (08:37→16:17)
[2019-10-10] MEDS: MAGNESIUM HYDROXIDE 30 ML UDC PO PRN (08:42)
--- NOTE | 2019-10-10 12:01 | NUR ---
Accounting Auditor called marianna Davis's son ([phone]) to offer emotional/spiritual support. Pt's son states his father is "looking better every day" and family are able to see him thru his window. Accounting Auditor provided information on how to reach custom harvester, if needed. Provided prayer. Pt's son open to follow up w/ Accounting Auditor. Will follow as able. [facility] O: [phone]
--- NOTE | 2019-10-10 16:09 | Progress Note ---
DATE: SUBJECTIVE: The patient remains on 10 L of oxygen with nasal cannula. He is afebrile. PHYSICAL EXAMINATION: VITAL SIGNS: Blood pressure is 111/67, pulse is 107. HEENT: No facial swelling or erythema. CARDIAC: Regular rate and rhythm with normal S1, S2. LUNGS: Auscultation of lungs shows clear breath sounds bilaterally. There is no wheezing. ABDOMEN: Soft and nontender. There is no rebound or guarding. EXTREMITIES: No leg edema or calf tenderness. IMPRESSION: 1. Acute respiratory failure. 2. Viral pneumonia and coronavirus disease-19 infection. 3. Anemia secondary to chronic blood loss. 4. Diabetes. 5. Hypertension. PLAN: 1. Continue to wean oxygen. 2. Physical therapy. 3. Continue to monitor blood counts. 4. Discussed disposition with Case Management and Dr. Henry. Barrett Martinez MD [facility] /[id number]
[2019-10-10] MEDS: MUPIROCIN 2% OINT 22 GM TUBE TOP SCH (16:17)
--- NOTE | 2019-10-10 17:46 | NUR ---
Patient had a very large bowel movement in the bedside commode today after a milk of magnesia. Patient states he no longer has stomach pains and feels much better.
[2019-10-10] MEDS ORDERED: SODIUM CHLORIDE 0.9% 50ML 50 ML ONE (19:48)
[2019-10-10] MEDS ORDERED: IOPAMIDOL 370 MG/ML 200 ML INFUS..BTL INJ ONE (19:48)
--- NOTE | 2019-10-10 20:10 | NUR ---
PATIENT OFF THE UNIT FOR CT OF THE CHEST.
--- NOTE | 2019-10-10 20:35 | NUR ---
PATIENT IS BACK TO UNIT FROM RADIOLOGY DEPARTMENT.
[2019-10-10] MEDS: INSULIN GLARGINE 100 UNITS/ML VIAL SQ SCH (21:15)
[2019-10-10] MEDS: ALPRAZOLAM 0.25 MG TAB PO PRN (21:39)
--- NOTE | 2019-10-10 23:32 | Diagnostic Imaging Report ---
EXAM: CT Chest WITH contrast 10/10/2019 3:53 PM INDICATION: Chest pain clinically concerning for pulmonary embolism. COMPARISON: None TECHNIQUE: Chest was scanned utilizing a multidetector helical scanner from the lung apex through the level of the adrenal glands with administration of IV contrast. Coronal and sagittal reformations were obtained. Routine protocol was performed. IV CONTRAST: 100 mL of Omnipaque 300 COMPLICATIONS: None RADIATION DOSE: Total DLP: 437 mGy*cm Estimated effective dose: (DLP x 0.014 x size factor) mSv CTDIvol has been reviewed. It is below the limits set by the Radiation Protocol Committee (RPC). Dose modulation, iterative reconstruction, and/or weight based adjustment of the mA/kV was utilized to reduce the radiation dose to as low as reasonably achievable. FINDINGS: LINES/ TUBES: None. VASCULAR: There are no filling defects within the pulmonary arteries to the segmental level. The main pulmonary artery is dilated measuring up to 3.8 cm, suggestive of pulmonary artery hypertension. The ascending and descending aorta have normal enhancement and caliber measuring 3.0 and 2.4 cm, respectively. LUNGS AND AIRWAYS: There is multifocal patchy groundglass and consolidative airspace opacities throughout both lungs. PLEURA: There is small left and trace right pleural effusion. HEART AND MEDIASTINUM: The thyroid gland is normal. There are multiple prominent mediastinal lymph nodes none of which meet criteria for pathologic enlargement. The heart is normal in size with atherosclerotic calcification of the coronary vessels. There is no pericardial effusion. UPPER ABDOMEN: There is a small hiatal hernia. The remainder of the imaged upper abdomen appears normal. BONES: There is multilevel degenerative disease of the spine with no suspicious osteolytic or osteoblastic lesions. SOFT TISSUES: Unremarkable. IMPRESSION: 1. No pulmonary embolism. 2. Patchy groundglass and consolidative airspace opacities throughout both lungs compatible with multifocal pneumonia and reactive mediastinal lymph nodes. 3. Small left and trace right pleural effusion. 4. Small hiatal hernia. Signed by: Nathalie Sánchez MD on 10/10/2019 8:54 PM
--- NOTE | 2019-10-10 23:32 | Progress Note ---
DATE: SUBJECTIVE: Mr. Contreras remains weak. No new complaints. On oxygen. PHYSICAL EXAMINATION: VITAL SIGNS: Stable, afebrile. HEENT: He is not icteric. NECK: Supple. CHEST: Clear. Remains hypoxemic. IMPRESSION: 1. Respiratory failure. 2. Viral coronavirus disease-19. Continue PT/OT. We will obtain CT to rule out pulmonary embolism. Discharge pending his problem. We will follow. Ruth Mott MD [facility] /[id number]
[2019-10-11] VITALS (8 sets, daily range): BP systolic 116–129; BP diastolic 63–77
--- OUTSIDE RECORDS SUMMARY | 2019-10-11 02:42 | XMS REPORT | Continuity of Care Document ---
Author Author [facility] t Organization [facility] Address Critical access hospital [address] [place] [id number] Phone Unavailable Care Team Providers Care Dye Beck Reel Operator Name Role Phone CLARISSA MATAMOROS Attphyjose Unavailable CLARISSA MATAMOROS Admphyjose Unavailable Problems This patient has no known problems. Allergies, Adverse Reactions, Alerts This patient has no known allergies or adverse reactions. Medications This patient has no known medications. Procedures This patient has no known procedures. Results Test Description Test Time Test Comments Results Result Comments Source CHEST SINGLE (PORTABLE) 2019-10-09 08:30:[address] [address] Patient Name: DAVE MONTOYA MR #: [id number] : 1945 Age/Sex: 74/M Req #: [id number] [facility] Physician: CLARISSA MATAMOROS MD Ordered by: AFIA SANDHU MD Report #: [id number] Location: [facility] Room/Bed: [place] [address] Procedure: [id number] DX/CHEST SINGLE (PORTABLE) Exam Date: 10/09/19 Exam Time: 0450 REPORT STATUS: Signed EXAM: CHEST SINGLE (PORTABLE) DATE: 10/09/2019 4:50 AM INDICATION: Pneumonia COMPARISON: 10/01/2019 FINDINGS: Right-sided PICC line identified in stable position. Again identified are patchy increased interstitial and airspace opacities throughout the lungs bilaterally, similar to the prior examination. There is no evidence for pneumothorax or significant volume pleural effusion. The cardiomediastinal silhouette is stable in appearance. No acute osseous abnormality is identified. IMPRESSION: No significant interval change from 10/01/2019. Grossly stable appearing airspace opacities identified throughout the lungs bilaterally which can be seen in the setting of a multifocal/viral infectious process. Signed by: Dr. Ulises Davis MD on 10/09/2019 8:32 AM Dictated By: ULISES DAVIS MD 1 Transcribed By: KAYLA on 10/09/19831 COPY TO: AFIA SANDHU MD CHEST SINGLE (PORTABLE) 2019-10-01 06:06:00 [place] [address] Patient Name: DAVE MONTOYA MR #: [id number] : 1945 Age/Sex: 74/M Req #: [id number] Adm Physician: CLARISSA MATAMOROS MD Ordered by: GT MART MD Report #: [id number] Location: [facility] Room/Bed: [place] [address] Procedure: [id number] DX/CHEST SINGLE (PORTABLE) Exam Date: Exam Time: REPORT STATUS: Signed EXAMINATION: CHEST SINGLE (PORTABLE) INDICATION: resp failure COMPARISON: Chest radiograph 09-30-2019. FINDINGS: AP view TUBES and LINES: Right arm PICC terminates in the SVC. LUNGS/PLEURA: Lungs are moderately inflated. Persistent bilateral interstitial and airspace opacities. HEART AND MEDIASTINUM: The cardiomediastinal silhouette is unremarkable. BONES AND SOFT TISSUES: No acute osseous lesion. Soft tissues are unremarkable. UPPER ABDOMEN: No free air under the diaphragm. IMPRESSION: Persistent bilateral interstitial and airspace opacities, compatible with multifocal pneumonia. Signed by: Dr. Agueda Presley MD on 10/01/2019 6:08 AM Dictated By: AGUEDA PRESLEY MD 7 Transcribed By: KAYLA on 10/01/19607 COPY TO: GT MART MD CHEST SINGLE (PORTABLE) 2019-09-30 06:46:00 [place] [address] Patient Name: DAVE MONTOYA MR #: [id number] : 1945 Age/Sex: 74/M Req #: [id number] Adm Physician: CLARISSA MATAMOROS MD Ordered by: GT MART MD Report #: [id number] Location: [facility] Room/Bed: [place] [address] Procedure: [id number] DX/CHEST SINGLE (PORTABLE) Exam Date: Exam Time: REPORT STATUS: Signed Examination: Single AP view of the chest. COMPARISON: Portable chest 09/29/2019 INDICATION: Shortness of breath, COVID IMPRESSION: 1. Lines and Tubes: Supporting right-sided PICC line is unchanged. 2. Hypoinflated lungs. No interval change in diffuse bilateral interstitial and alveolar opacities consistent with multifocal pneumonia. 3. Cardiomediastinal silhouette is obscured. Pulmonary vasculature is obscured. 4. No acute bony abnormalities. Signed by: Dr. Dave Delgado M.D. on 09/30/2019 6:47 AM Dictated By: DAVE DELGADO MD 6 Transcribed By: KAYLA on 09/30/19646 COPY TO: GT MART MD CHEST XRAY LINE PLACEMENT 2019-09-29 22:20:00 [place] [address] Patient Name: DAVE MONTOYA MR #: [id number] : 1945 Age/Sex: 74/M Req #: [id number] Adm Physician: CLARISSA MATAMOROS MD Ordered by: GT MART MD Report #: [id number] Location: [facility] Room/Bed: [facility] Procedure: [id number] DX/CHEST XRAY LINE PLACEMENT Exam Date: 09/29/19 Exam Time: 2154 REPORT STATUS: Signed Examination: Single AP view of the chest. COMPARISON: Portable chest 09/27/2019. CT chest 09/28/2019 INDICATION: PICC line placement IMPRESSION: 1. Lines and Tubes: Interval placement of right-sided PICC line which has its distal tip project ing in the mid SVC. 2. Hypoinflated lungs. No interval change in diffuse bilateral interstitial and alveolar opacities consistent with multifocal pneumonia. 3. Cardiomediastinal silhouette is obscured. Pulmonary vasculature is obscured. 4. No acute bony abnormalities. Signed by: Dr. Dave Delgado M.D. on 09/29/2019 10:21 PM Dictated By: DAVE DELGADO MD 20 Transcribed By: KAYLA on 09/29/192220 COPY TO: GT MART MD CT CHEST W 2019-09-28 21:07:00 [place] [address] Patient Name: DAVE MONTOYA MR #: [id number] : 1945 Age/Sex: 74/M Req #: [id number] Adm Physician: CLARISSA MATAMOROS MD Ordered by: ELIGIO MOREL MD Report #: [id number] Location: [facility] Room/Bed: [facility] Procedure: [id number] CT/CT CHEST W Exam Date: 09/28/19 Exam Time: 1830 REPORT STATUS: Signed EXAMINATION: CT of the chest with contrast, PE protocol. TECHNIQUE: Spiral CT images of the chest were performed from the lung apices through the level of the adrenal glands after the IV administration of 100 cc of Isovue 370. Thin section reconstructions were obtained with special concentration on the pulmonary arteries. Coronal and sagittal reformatted images were also performed. COMPARISON: Portable chest 09/27/2019 CLINICAL HISTORY:Pneumonia, suspect PE, COVID + DISCUSSION: Exam limited as it was acquired during partial expiratory phase. Lungs: No filling defects are identified in the main, right or left pulmonary arteries to their proximal segmental branches. Unable to assess distal segmental and subsegmental vessels due to poor contrast opacification., Diffusely increased attenuation of the pulmonary parenchyma secondary to scan acquired during partial expiratory phase. Diffuse bilateral groundglass opacities extending along the bronchovascular bundles, most of which are rounded and predominantly peripheral. Interlobular septal thickening is noted in the groundglass opacities. More confluent opacities with air bronchograms are noted in the superior segment of the right lower lobe (for example series 3, image 59 and 66). No pulmonary masses. Airways: Major airways are clear, without bronchial lesions. Pleura: Small bilateral pleural effusions, left greater than right. Heart and mediastinum: Thyroid is unremarkable. Heart size is normal. No pericardial effusion. Atherosclerotic calcification of the coronary arteries and thoracic aortic arch. Aorta is not aneurysmal. Main pulmonary artery is enlarged, measuring 3.7 cm. Lymph nodes: Mildly enlarged right upper paratracheal lymph node which measures 1.2 cm in short axis (series 2, image 26). No other enlarged mediastinal or hilar or axillary adenopathy. Abdomen: The visualized portions of the liver, spleen, pancreas, adrenal glands are unremarkable. Bilateral renal cortical scarring and thinning. Bones and soft tissues: No aggressive lytic or suspicious focal sclerotic lesions. Generalized osteopenia. Soft tissues are unremarkable. IMPRESSION: 1. No evidence of pulmonary embolism to the proximal segmental branches. The distal segmental and subsegmental vessels cannot be adequately evaluated due to poor contrast opacification. 2. Commonly reported imaging features of COVID 19 pneumonia are present. Other processes such as influenza pneumonia and organizing pneumonia, as can be seen with drug toxicity and connective tissue disease, can cause a similar imaging pattern. 3. Small bilateral pleural effusions, left greater than right. 4. Enlarged main pulmonary artery, suggesting pulmonary hypertension. 5. Mildly enlarged right upper paratracheal lymph node, likely reactive. Signed by: Dr. Dave Delgado M.D. on 09/28/2019 9:16 PM Dictated By: DAVE DELGADO MD 15 Transcribed By: KAYLA on 09/28/192115 COPY TO: ELIGIO MOREL MD CHEST SINGLE (PORTABLE) 2019-09-27 07:34:00 [place] [address] Patient Name: DAVE MONTOYA MR #: [id number] : 1945 Age/Sex: 74/M Req #: [id number] Adm Physician: CLARISSA MATAMOROS MD Ordered by: GT MART MD Report #: [id number] Location: [facility] Room/Bed: [facility] Procedure: [id number] DX/CHEST SINGLE (PORTABLE) Exam Date: 09/27/19 Exam Time: 0630 REPORT STATUS: Signed Examination: Single AP view of the chest. COMPARISON: Portable chest 09/25/2019 INDICATION: Shortness of breath, COVID IMPRESSION: 1. Lines and Tubes: None 2. No significant interval change in diffuse bilateral interstitial and alveolar op acities consistent with multifocal pneumonia. 3. Cardiomediastinal silhouette is normal. Pulmonary vasculature is obscured. 4. No acute bony abnormalities. Signed by: Dr. Dave Delgado M.D. on 09/27/2019 7:35 AM Dictated By: DAVE DELGADO MD 4 Transcribed By: KALYA on 09/27/19734 COPY TO: GT MART MD CHEST SINGLE (PORTABLE) 2019-09-25 07:50:00 [place] [address] Patient Name: DAVE MONTOYA MR #: [id number] : 1945 Age/Sex: 74/M Req #: [id number] Adm Physician: CLARISSA MATAMOROS MD Ordered by: GT MART MD Report #: [id number] Location: [facility] Room/Bed: [place] [address] Procedure: [id number] DX/CHEST SINGLE (PORTABLE) Exam Date: 09/25/19 Exam Time: 0700 REPORT STATUS: Signed Examination: Single AP view of the chest. COMPARISON: Portable chest 09/21/2019 and 09/24/2019 INDICATION: Respiratory failure, pneumonia IMPRESSION: 1. Lines and Tubes: None 2. No interval change in diffuse bilateral interstitial and alveolar opacities consistent with multifocal pneumonia. 3. Stable mild prominence of the cardiac silhouette, which is partly due to portable AP projection.. Pulmonary vasculature is obscured. 4. No acute bony abnormalities. Signed by: Dr. Dave Delgado M.D. on 09/25/2019 7:51 AM Dictated By: DAVE DELGADO MD 0 Transcribed By: KAYLA on 09/25/19750 COPY TO: GT MART MD CHEST SINGLE (PORTABLE) 2019-09-24 08:06:00 [place] [address] Patient Name: DAVE MONTOYA MR #: [id number] : 1945 Age/Sex: 74/M Req #: [id number] Adm Physician: CLARISSA MATAMOROS MD Ordered by: GT MART MD Report #: [id number] Location: [facility] Room/Bed: [place] [address] Procedure: [id number] DX/CHEST SINGLE (PORTABLE) Exam Date: 09/24/19 Exam Time: 0600 REPORT STATUS: Signed Examination: Single AP view of the chest. COMPARISON: Portable chest 09/21/2019 INDICATION: Respiratory failure IMPRESSION: 1. Lines and Tubes: None 2. Lungs are hypoinflated. Slight worsening of right lower lobe opacities, which are now more confluent, with development of air bronchograms. Left-sided predominantly interstitial opacities are unchanged. 3. Prominence of the cardiac silhouette, which may be partly due to AP projection. Pulmonary vasculature is normal. 4. No acute bony abnormalities. Signed by: Dr. Dave Delgado M.D. on 09/24/2019 8:11 AM Dictated By: DAVE DELGADO MD 08 Transcribed By: KAYLA on 09/24/1911 COPY TO: GT MART MD CHEST SINGLE (PORTABLE) 2019-09-21 09:53:00 [place] [address] Patient Name: DAVE MONTOYA MR #: [id number] : 1945 Age/Sex: 74/M Req #: [id number] Adm Physician: CLARISSA MATAMOROS MD Ordered by: GT MART MD Report #: [id number] Location: [facility] Room/Bed: [place] [address] Procedure: [id number] DX/CHEST SINGLE (PORTABLE) Exam Date: 09/21/19 Exam Time: 0651 REPORT STATUS: Signed EXAMINATION: CHEST SINGLE (PORTABLE) INDICATION: resp failure COMPARISON: Multiple prior chest x-ray examinations most recent dated 09/18/2019 FINDINGS: AP view TUBES and LINES: None. LUNGS/PLEURA: Lungs are well inflated. There are improved bilateral patchy opacities compatible with improving pneumonia, ARDS or edema.. There is no pleural effusion or pneumothorax. HEART AND MEDIASTINUM: The cardiomediastinal silhouette is unremarkable. BONES AND SOFT TISSUES: No acute osseous lesion. Soft tissues are unremarkable. UPPER ABDOMEN: No free air under the diaphragm. IMPRESSION: Improved bilateral patchy opacities compatible with improving pneumonia, ARDS or edema. Signed by: Enrico Kothari MD on 09/21/2019 9:54 AM Dictated By: ENRICO KOTHARI MD 0954 Transcribed By: KAYLA on 09/21/19953 COPY TO: GT MART MD CHEST SINGLE (PORTABLE) 2019-09-18 08:40:00 [place] [address] Patient Name: DAVE MONTOYA MR #: [id number] : 1945 Age/Sex: 74/M Req #: [id number] Adm Physician: CLARISSA MATAMOROS MD Ordered by: GT MART MD Report #: [id number] Location: [facility] Room/Bed: [place] [address] Procedure: [id number] DX/CHEST SINGLE (PORTABLE) Exam Date: 09/18/19 Exam Time: 0505 REPORT STATUS: Signed EXAMINATION: CHEST SINGLE (PORTABLE) INDICATION: Respiratory failure COMPARISON: Multiple prior chest radiographs, most recently of 09/16/2019 FINDINGS: LINES/TUBES:EKG leads overlie the chest. LUNGS:The lungs are moderately inflated. Persistent bilateral multifocal airspace opacities. PLEURA:No pleural effusion or pneumothorax. MEDIASTINUM:The cardiomediastinal silhouette appears unchanged in size and shape. BONES/SOFT TISSUES:No acute osseous injury. ABDOMEN:No free air under the diaphragm. IMPRESSION: No significant interval change. Signed by: Елена Archuleta MD on 09/18/2019 8:41 AM Dictated By: ЕЛЕНА ARCHULETA MD 0 Transcribed By: KAYLA on 09/18/19840 COPY TO: GT MART MD CHEST SINGLE (PORTABLE) 2019-09-16 05:25:00 [place] [address] Patient Name: DAVE MONTOYA MR #: [id number] : 1945 Age/Sex: 74/M Req #: [id number] Adm Physician: CLARISSA MATAMOROS MD Ordered by: GT MART MD Report #: [id number] Location: [facility] Room/Bed: [place] [address] Procedure: [id number] DX/CHEST SINGLE (PORTABLE) Exam Date: Exam Time: REPORT STATUS: Signed EXAMINATION: CHEST SINGLE (PORTABLE) INDICATION: viral pneumonia COMPARISON: 09/15/2019 FINDINGS: AP view TUBES and LINES: None. LUNGS: Unchanged diffuse pulmonary opacities. PLEURA: No pleural effusion or pneumothorax. HE ART AND MEDIASTINUM: The cardiomediastinal silhouette is unremarkable. BONES AND SOFT TISSUES: No acute osseous lesion. Soft tissues are unremarkable. UPPER ABDOMEN: No free air under the diaphragm. IMPRESSION: Stable exam. Unchanged pulmonary opacities consistent with provided history of viral pneumonia. Signed by: Sakshi Villareal MD on 09/16/2019 5:25 AM Dictated By: SAKSHI VILLAREAL MD 4 Transcribed By: KAYLA on 09/16/19524 COPY TO: GT MART MD CHEST SINGLE (PORTABLE) 2019-09-15 05:58:00 [place] [address] Patient Name: DAVE MONTOYA MR #: [id number] : 1945 Age/Sex: 74/M Req #: [id number] Adm Physician: CLARISSA MATAMOROS MD Ordered by: GT MART MD Report #: [id number] Location: [facility] Room/Bed: [id number] Procedure: DX/CHEST SINGLE (PORTABLE) Exam Date: Exam Time: REPORT STATUS: Signed EXAMINATION: CHEST SINGLE (PORTABLE) INDICATION: resp failure COMPARISON: 09/14/2019 FINDINGS: AP view TUBES and LINES: None. LUNGS: Unchanged patchy pulmonary airspace disease. PLEURA: No pleural effusion or pneumothorax. HEART AND MEDIASTINUM: The cardiomediastinal silhouette is unchanged. BONES AND SOFT TISSUES: No acute osseous lesion. Soft tissues are unremarkable. UPPER ABDOMEN: No free air under the diaphragm. IMPRESSION: Unchanged pulmonary airspace disease consistent with viral pneumonia. Signed by: Sakshi Villareal MD on 09/15/2019 5:59 AM Dictated By: SAKSHI VILLAREAL MD 8 Transcribed By: KAYLA on 09/15/19558 COPY TO: GT MART MD CHEST SINGLE (PORTABLE) 2019-09-14 07:04:00 [place] [address] Patient Name: DAVE MONTOYA MR #: [id number] : 1945 Age/Sex: 74/M Req #: [id number] Adm Physician: CLARISSA MATAMOROS MD Ordered by: GT MART MD Report #: [id number] Location: [facility] Room/Bed: [place] [address] Procedure: DX/CHEST SINGLE (PORTABLE) Exam Date: 09/14/19 Exam Time: 399 REPORT STATUS: Signed EXAMINATION: CHEST SINGLE (PORTABLE) INDICATION: resp failure [id number] COMPARISON: 09/13/2019 FINDINGS: AP view TUBES and LINES: None. LUNGS: Unchanged patchy airspace disease within both lungs. PLEURA: No pleural effusion or pneumothorax. HEART AND MEDIASTINUM: The cardiomediastinal silhouette is unchanged. BONES AND SOFT TISSUES: No acute osseous lesion. Soft tissues are unremarkable. UPPER ABDOMEN: No free air under the diaphragm. IMPRESSION: Stable exam. Unchanged airspace disease within both lungs suggestive of viral pneumonia. Signed by: Sakshi Villareal MD on 09/14/2019 7:05 AM Dictated By: SAKSHI [place]ILLARE[place] MD 4 Transcribed By: KAYLA on 09/14/19704 COPY TO: GT MART MD CHEST SINGLE (PORTABLE) 2019-09-13 05:18:00 [place] [address] Patient Name: DAVE MONTOYA MR #: [id number] : 1945 Age/Sex: 74/M Req #: [id number] Adm Physician: CLARISSA MATAMOROS MD Ordered by: GT MART MD Report #: [id number] Location: [facility] Room/Bed: [place] [address] Procedure: DX/CHEST SINGLE (PORTABLE) Exam Date: Exam Time: REPORT STATUS: Signed EXAMINATION: CHEST SINGLE (PORTABLE) INDICATION: resp failure COMPARISON: 09/10/2019 FINDINGS: AP view TUBES and LINES: None. LUNGS: No significant change in patchy bilateral pulmonary airspace disease. The pulmonary vasculature remains prominent. PLEURA: No pleural effusion or pneumothorax. HEART AND MEDIASTINUM: The cardiomediastinal silhouette is unremarkable. BONES AND SOFT TISSUES: No acute osseous lesion. Soft tissues are unremarkable. UPPER ABDOMEN: No free air under the diaphragm. IMPRESSION: No significant interval change in patchy pulmonary airspace disease which again may represent pneumonia and/or pulmonary edema. Signed by: Sakshi Villareal MD on 09/13/2019 5:19 AM Dictated By: SAKSHI [place]ILLARE[place] MD 8 Transcribed By: KAYLA on 09/13/19518 COPY TO: GT MART MD CHEST SINGLE (PORTABLE) 2019-09-10 18:13:00 [place] [address] Patient Name: DAVE MONTOYA MR #: [id number] : 1945 Age/Sex: 74/M Req #: [id number] Adm Physician: CLARISSA MATAMOROS MD Ordered by: CLARISSA MATAMOROS MD Report #: [id number] Location: [facility] Room/Bed: [place] [address] Procedure: [id number] DX/CHEST SINGLE (PORTABLE) Exam Date: 09/10/19 Exam Time: 1714 REPORT STATUS: Signed EXAMINATION: CHEST SINGLE (PORTABLE) INDICATION: resp failure [id number] COMPARISON: 09/08/19. FINDINGS: TUBES and LINES: None. LUNGS: Increased multifocal patchy density particularly in the lower lobes. Diffuse prominence of the pulmonary vasculature. PLEURA: No pleural effusion or pneumothorax. HEART AND MEDIASTINUM: Cardiac size is mildly enlarged. There are atherosclerotic calcifications within the aorta. BONES AND SOFT TISSUES: No acute osseous lesion. Soft tissues are unremarkable. UPPER ABDOMEN: No free air under the diaphragm. IMPRESSION: Interval increase in patchy density bilaterally, which may represent pulmonary edema or multifocal infection in the proper clinical setting. Bilateral pulmonary venous congestion. Signed by: Dr. Daniel Gallardo M.D. on 09/10/2019 6:15 PM Dictated By: NICOLÁS GALLARDO MD, MD 14 Transcribed By: KAYLA on 09/10/191814 COPY TO: CLARISSA MATAMOROS MD CHEST SINGLE (PORTABLE) 2019-09-08 13:59:00 [place] [address] Patient Name: DAVE MONTOYA MR #: [id number] : 1945 Age/Sex: 74/M Req #: [id number] Adm Physician: Ordered by: OJ BORJAS MD Report #: [id number] Location: ER Room/Bed: Procedure: [id number] DX/CHEST SINGLE (PORTABLE) Exam Date: 09/08/19 Exam Time: 1300 REPORT STATUS: Signed EXAMINATION: CHEST SINGLE (PORTABLE) INDICATION: COUGH SOB COMPARISON: None FINDINGS: TUBES and LINES: None. LUNGS: Lungs are well inflated. There are patchy bibasilar opacities. No evidence of pulmonary edema. PLEURA: No pleural effusion or pneumothorax. HEART AND MEDIASTINUM: The cardiomediastinal silhouette is unremarkable. There are atherosclerotic calcifications within the aorta. BONES AND SOFT TISSUES: No acute osseous lesion. Soft tissues are unremarkable. UPPER ABDOMEN: No free air under the diaphragm. IMPRESSION: Patchy opacities in the lower lung zones, which may represent pneumonia in the setting of cough. Recommend follow-up chest radiograph in 6-8 weeks to assess for resolution. Signed by: Dr. Agueda Presley MD on 09/08/2019 2:01 PM Dictated By: AGUEDA PRESLEY MD 1401 Transcribed By: KAYLA on 09/08/19 140 COPY TO: OJ BORJAS MD
[2019-10-11] MEDS: INSULIN LISPRO 100 UNIT/1 ML 3ML VIAL SQ SCH ×4 (07:30→21:30)
[2019-10-11] MEDS: MUPIROCIN 2% OINT 22 GM TUBE TOP SCH ×2 (09:20→15:57)
[2019-10-11] MEDS: PANTOPRAZOLE 40 MG 10ML VIAL IV SCH ×2 (09:20→15:57)
--- NOTE | 2019-10-11 16:20 | NUR ---
Nutrition Screen Note RD Recommendation for Physician: - Continue current diet regimen Plan of Care: RD following monitoring for tolerance and adequacy Nutrition reason for involvement: follow up Primary Diagnose(s): Hyperglycemia, Pneumonia due to COVID - 19 PMH: T2DM, HTN, overweight/obesity, Gout, dyslipidemia, DM pneuropathy, reflux, Ht:67 in Wt: 195 lbs (10/08) 193 lbs (10/03) 192 lbs (09/26) 217 lbs (09/18) 220.25 lbs (09/13) BMI:30.5 kg/m2 IBW: [address] Assessment: 10/10: Follow up. Chart reviewed. It is recorded that pt has been consuming 75-100% of meals and is ordered Glucerna TID. Pt had a BM on 10/09 per chart. Will continue to monitor. 10/03: Follow up. Chart reviewed. Pt was previously on a full liquid diet and is now advanced to ADA diet with Glucerna nutrition supplements TID. It is recorded pt consumed 75% of liquid meals yesterday. Pt has not had a BM recorded since 09/29. Unable to verify weight status with pt. Will continue to monitor. 09/26: Follow up. Chart reviewed. Attempted to call pt over the phone, but he did not answer. Last recorded meal intake amount was 50-100% on 09/22. Unable to verify weight status with pt at this time. If PO intake <50% of meals, recommend to offer the pt a Glucerna nutrition supplement. Will continue to monitor. 09/19: Follow up. Unable to speak to pt. Pt has varied intake. It is recorded pt consumed 0% of meals on 09/16 and was previously consuming 25-100% of meals. If PO intake <50% of meals, recommend to offer the pt a Glucerna nutrition supplement. Will continue to monitor. (09/13) Initial encounter with patient. Diet Hx: Pt denies any known food allergies. Medications: reviewed: on Vitamin C, zinc sulfate, lasix. Pt was eating breakfast at time of visit and only had C/O coughing due to COVID-19 pneumonia. Pt denies any difficulty chewing or swallowing nor has any nausea or vomiting. 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 No significant wt changes. Pt is able to feed himself. Biochemical data reviewed. Hyperglycemia POC 279 on 09/12 Current Diet: 1800 ADA, Glucerna TID Malnutrition Evaluation (09/14/2019) The patient does not meet criteria for a specified degree of malnutrition at this time. Will re-evaluate at follow-up as appropriate. Diet Education Needs Assessment: RD is available for diet education as needed Diet tolerance: tolerating PO Nutrition Care Level: low Signed: Nica Rodriguez, PARMJIT, LD
--- NOTE | 2019-10-11 16:45 | NUR ---
progress note The patient is still requiring oxygen. He has been decreased to a nasal cannula with 2 liters. doing well weak still no new problems PHYSICAL EXAMINATION: VITAL SIGNS: Blood pressure is 116/74, heart rate is 107, and saturation is 98%. HEENT: Shows no facial swelling or erythema. LYMPHATIC: Shows no submandibular, cervical, or supraclavicular adenopathy. CARDIAC: Reveals regular rate and rhythm. Normal S1, S2. LUNGS: Auscultation of lungs reveals crackles at the bases. There is no wheezing. ABDOMEN: Soft, nontender. There is no rebound or guarding. EXTREMITIES: Shows no leg edema or calf tenderness. There is no cyanosis or clubbing. SKIN: Shows no rashes. IMPRESSION: 1. Viral pneumonia and COVID-19 infection. 2. Anemia, secondary to chronic blood loss. 3. Diabetes. 4. Hypertension. PLAN: 1. Continue to wean oxygen. 2. Continue physical therapy. 3. Continue to monitor blood counts. can dc isolation patient to wear mask
--- NOTE | 2019-10-11 19:01 | Progress Note ---
DATE: SUBJECTIVE: The patient is still requiring oxygen. He has been decreased to a nasal cannula with 2 liters. PHYSICAL EXAMINATION: VITAL SIGNS: Blood pressure is 116/74, heart rate is 107, and saturation is 98%. HEENT: Shows no facial swelling or erythema. LYMPHATIC: Shows no submandibular, cervical, or supraclavicular adenopathy. CARDIAC: Reveals regular rate and rhythm. Normal S1, S2. LUNGS: Auscultation of lungs reveals crackles at the bases. There is no wheezing. ABDOMEN: Soft, nontender. There is no rebound or guarding. EXTREMITIES: Shows no leg edema or calf tenderness. There is no cyanosis or clubbing. SKIN: Shows no rashes. IMPRESSION: 1. Viral pneumonia and COVID-19 infection. 2. Anemia, secondary to chronic blood loss. 3. Diabetes. 4. Hypertension. PLAN: 1. Continue to wean oxygen. 2. Continue physical therapy. 3. Continue to monitor blood counts. Barrett Martinez MD [facility] /[id number]
[2019-10-11] MEDS: ALPRAZOLAM 0.25 MG TAB PO PRN (21:26)
[2019-10-11] MEDS: INSULIN GLARGINE 100 UNITS/ML VIAL SQ SCH (21:31)
[2019-10-11] MEDS: BENZONATATE 100 MG CAP PO PRN (22:53)
[2019-10-12] VITALS (7 sets, daily range): BP systolic 110–131; BP diastolic 68–78
[2019-10-12] MEDS: INSULIN LISPRO 100 UNIT/1 ML 3ML VIAL SQ SCH ×4 (07:30→21:00)
[2019-10-12] MEDS: MUPIROCIN 2% OINT 22 GM TUBE TOP SCH ×2 (07:53→16:38)
[2019-10-12] MEDS: PANTOPRAZOLE 40 MG 10ML VIAL IV SCH ×2 (07:53→16:38)
--- NOTE | 2019-10-12 09:54 | NUR ---
Patient has tested negative for COVID at this time. Will be alerting Dr. Henry.
[2019-10-12] MEDS ORDERED: SODIUM CHLORIDE 0.9% 250ML 250 ML IV ONE (10:45)
[2019-10-12] MEDS ORDERED: FUROSEMIDE INJ 10 MG/ML 2 ML VIAL IV SCH (10:45)
[2019-10-12] MEDS ORDERED: ACETAMINOPHEN 325 MG TAB PO SCH (10:45)
[2019-10-12 13:01] LABS: BASOPHILS # (AUTO) 0.1 (0.0-0.1); EOSINOPHILS # (AUTO) 0.1 (0.0-0.4); EOSINOPHILS % 1.2 % (0.0-6.0); HEMATOCRIT 26.1 % (38.2-49.6); HEMOGLOBIN 8.2 g/dL (14.0-18.0); LYMPHOCYTES # (AUTO) 3.3 (1.0-3.2); LYMPHOCYTES % 37.9 % (18.0-39.1); MEAN CORPUSCULAR HEMOGLOBIN 28.7 pg (28-32); MEAN CORPUSCULAR HGB CONC 31.4 g/dL (31-35); MEAN CORPUSCULAR VOLUME 91.3 fL (81-99); MONOCYTES # (AUTO) 0.7 (0.2-0.8); MONOCYTES % 7.6 % (4.4-11.3); NEUTROPHILS # (AUTO) 4.5 (2.1-6.9); NEUTROPHILS % 51.5 % (38.7-80.0); PLATELET COUNT 301 x10e3/uL (140-360); RED BLOOD COUNT 2.86 x10e6/uL (4.3-5.7); RED CELL DISTRIBUTION WIDTH 14.4 % (11.7-14.4)
--- NOTE | 2019-10-12 14:26 | NUR ---
Dr. Henry ordered 2 units of blood for the patient. There was no CBC, so this underwriter solicitation director candy a CBC, HGB came back 8.2, HCT 26.1. These results were called to Dr. Henry and he stated to still given the 2 units as he wants the patient's HGB above 10. This underwriter solicitation director called lab to discuss the matter and they stated they would tell the pathologist. Will report to KARY Hallman that this underwriter solicitation director gave report. Patient will be transferred to room 211 after he does PT. Family aware patient is moving. Will continue to monitor. Addendum: 10/12/19 at 1603 by Nubia Kunz RN Doctor of pathology called to ask this underwriter solicitation director to contact Dr. Henry to talk to him about approval for giving blood with HGB above 8.0. This underwriter solicitation director contacted Dr. Henry and left a voicemail at [address] Henry to call the doctor of pathology back and also contact KARY Hallman on [employer] [place] for further questions. Will now pass care to KARY Hallman from this time on.
--- NOTE | 2019-10-12 16:07 | NUR ---
Nubia RN reported she has left voicemail with Dr. Henry regarding Doctor of Pathology questioning blood transfusion order with hgb level 8.2. Will continue to await call from Dr. Henry to see if will continue with blood transfusion.
--- NOTE | 2019-10-12 17:53 | NUR ---
PROGRESS NOTE DR. MOREL SUBJECTIVE: The patient is still requiring oxygen. He has been decreased to a nasal cannula with 2 liters. doing well weak still no new problems PHYSICAL EXAMINATION: VITAL SIGNS: reviewed HEENT: Shows no facial swelling or erythema. LYMPHATIC: Shows no submandibular, cervical, or supraclavicular adenopathy. CARDIAC: Reveals regular rate and rhythm. Normal S1, S2. LUNGS: Auscultation of lungs reveals crackles at the bases. There is no wheezing. ABDOMEN: Soft, nontender. There is no rebound or guarding. EXTREMITIES: Shows no leg edema or calf tenderness. There is no cyanosis or clubbing. SKIN: Shows no rashes. RADIOLOGY: reviewed LABS: reviewed IMPRESSION: 1. Viral pneumonia and COVID-19 infection. 2. Anemia, secondary to chronic blood loss. 3. Diabetes. 4. Hypertension. PLAN: oxygen as needed supportive care no longer contagious PT SEEN AND EXAMINED BY DR. MOREL
[2019-10-12] MEDS: BENZONATATE 100 MG CAP PO PRN (18:03)
--- NOTE | 2019-10-12 18:22 | NUR ---
Per laborer cook house, Dr. Atkinson will not release the blood for transfusion due to hemoglobin level of 8.2 until she speaks with Dr. Henry. I notified Dr. Henry, he was given Dr. Atkinson's phone number. Awaiting further orders.
--- NOTE | 2019-10-12 18:50 | NUR ---
Lab reported that approval of blood release has not bee. given yet by Dr. Atkinson. I notified Priyanka in lab that i gave Dr. Elaine France number and explained blood would not be released until she spoke with him.
--- NOTE | 2019-10-12 19:10 | NUR ---
Completed bedside shift report with morning nurse. Pt alert and oriented, sitting in recliner at bedside. Denies pain at this time. Call light within reach.
--- NOTE | 2019-10-12 20:49 | NUR ---
Called lab and spoke with Priyanka regarding blood ordered to give by Dr. Henry, still waiting approval to release blood.
[2019-10-12] MEDS: INSULIN GLARGINE 100 UNITS/ML VIAL SQ SCH (21:00)
[2019-10-13] VITALS (9 sets, daily range): BP systolic 111–132; BP diastolic 71–76
[2019-10-13 05:59] LABS: BASOPHILS # (AUTO) 0.1 (0.0-0.1); BASOPHILS % 0.8 % (0.0-1.0); EOSINOPHILS # (AUTO) 0.1 (0.0-0.4); EOSINOPHILS % 1.4 % (0.0-6.0); HEMATOCRIT 25.5 % (38.2-49.6); HEMOGLOBIN 8.1 g/dL (14.0-18.0); LYMPHOCYTES # (AUTO) 3.5 (1.0-3.2); LYMPHOCYTES % 40.7 % (18.0-39.1); MEAN CORPUSCULAR HEMOGLOBIN 28.7 pg (28-32); MEAN CORPUSCULAR HGB CONC 31.8 g/dL (31-35); MEAN CORPUSCULAR VOLUME 90.4 fL (81-99); MONOCYTES # (AUTO) 0.8 (0.2-0.8); MONOCYTES % 9.7 % (4.4-11.3); NEUTROPHILS % 46.8 % (38.7-80.0); PLATELET COUNT 345 x10e3/uL (140-360); RED BLOOD COUNT 2.82 x10e6/uL (4.3-5.7); RED CELL DISTRIBUTION WIDTH 14.5 % (11.7-14.4)
[2019-10-13 06:23] LABS: ANION GAP 10.3 mmol/L (8-16); BLOOD UREA NITROGEN 12 mg/dL (7-26); BUN/CREATININE RATIO 12 (6-25); CALCIUM 8.3 mg/dL (8.4-10.2); CARBON DIOXIDE 30 mmol/L (22-29); CHLORIDE 101 mmol/L (98-107); CREATININE, SERUM 1.04 mg/dL (0.72-1.25); EST GLOMERULAR FILTRATION RATE > 60 ML/MIN (60-); GLUCOSE 93 mg/dL (74-118); POTASSIUM 3.3 mmol/L (3.5-5.1); SODIUM 138 mmol/L (136-145)
[2019-10-13] MEDS: INSULIN LISPRO 100 UNIT/1 ML 3ML VIAL SQ SCH ×4 (07:30→20:40)
--- NOTE | 2019-10-13 09:56 | NUR ---
ORDER RECEIVED FOR [facility] RE-EVAL. SPOKE W BEDSIDE NURSE, RAJENDRA. DISCUSSED PT HAVING PHYSICAL THERAPY RE-EVAL. NOTED PT DESATTED AND HR WAS ELEVATED ON LAST EVALUATION ON 10/09/2019.
[2019-10-13] MEDS: MUPIROCIN 2% OINT 22 GM TUBE TOP SCH ×2 (09:57→17:00)
[2019-10-13] MEDS: PANTOPRAZOLE 40 MG 10ML VIAL IV SCH (09:57)
[2019-10-13] MEDS ORDERED: POTASSIUM CHLORIDE 10MEQ EA PO ONE (10:30)
[2019-10-13] MEDS ORDERED: FUROSEMIDE INJ 10 MG/ML 4 ML VIAL IV ONE (10:30)
[2019-10-13] MEDS: ACETAMINOPHEN 325 MG TAB PO PRN (10:34)
--- NOTE | 2019-10-13 10:48 | NUR ---
Notified the blood bank that Dr. Henry would like to give one unit of blood. Jose Antonio said he spoke to Dr Atkinson and she said she still needs to speak to Dr. Henry before she will release any blood due to hemoglobin level being 8.1. Attempted to call Dr. Henry, No answer. will await call back.
--- NOTE | 2019-10-13 13:46 | NUR ---
Dr. Henry said he spoke with Dr. Atkinson and it is OK to give one unit of blood at this time.
[2019-10-13] MEDS ORDERED: SODIUM CHLORIDE 0.9% 250ML 250 ML ONE (14:29)
--- NOTE | 2019-10-13 18:56 | NUR ---
Shift report completed with morning nurse. Pt alert and oriented, sitting in recliner at bedside. Denies pain at this time. Call light within reach. Educated on importance to call before getting up out of recliner, "Call don't Fall".
[2019-10-13] MEDS: INSULIN GLARGINE 100 UNITS/ML VIAL SQ SCH (20:39)
[2019-10-14] VITALS (7 sets, daily range): BP systolic 109–127; BP diastolic 69–83
--- NOTE | 2019-10-14 07:10 | NUR ---
PATIENT IS AWAKE AND IN STABLE CONDITION WITH NO S/S OF RESPIRATORY DISTRESS. NO PAIN VOICED. 02 APPLIED AT 1.5L HIGH FLOW; TELEMETRY APPLIED. URINAL PROVIDED TO PATIENT. BED ALARM APPLIED. CALL LIGHT IS WITHIN REACH OF PATIENT, PATIENT INSTRUCTED TO CALL FOR ASSISTANCE NEEDED.
[2019-10-14] MEDS: INSULIN LISPRO 100 UNIT/1 ML 3ML VIAL SQ SCH ×4 (07:30→20:45)
[2019-10-14] MEDS: PANTOPRAZOLE 40 MG 10ML VIAL IV SCH (08:08)
[2019-10-14] MEDS: MUPIROCIN 2% OINT 22 GM TUBE TOP SCH ×2 (08:09→16:04)
--- NOTE | 2019-10-14 09:33 | NUR ---
FAXED UPDATES TO [facility]
[2019-10-14] MEDS ORDERED: FUROSEMIDE INJ 10 MG/ML 4 ML VIAL IV ONE (09:50)
[2019-10-14] MEDS ORDERED: POTASSIUM CHLORIDE 10MEQ EA PO ONE (09:55)
[2019-10-14] MEDS: ACETAMINOPHEN 325 MG TAB PO PRN (11:28)
--- NOTE | 2019-10-14 11:34 | NUR ---
PATIENT CONTINUES TO SIT IN THE RECLINER POST WORKING WITH PHYSICAL THERAPY THIS MORNING. PATIENT IS IN STABLE CONDITION WITH NO S/S OF RESPIRATORY DISTRESS. TYLENOL RECENTLY GIVEN TO THE PATIENT FOR LOWER BACK PAIN. ALLEVYN PAD APPLIED TO LOWER SACRUM AREA- DRY/ HEALING SKIN NOTED TO LOWER SACRUM BUT NO REDNESS NOTED. ASKED DR. MATAMOROS FOR A MIXED SIGNAL DESIGN ENGINEER CONSULT- AWAITING ORDER OR CALLBACK.
--- NOTE | 2019-10-14 12:46 | NUR ---
SPOKE WITH FACILITY, CONFIRMED RECEIPT OF CLINICALS UPDATES, ARE GOING TO TRY TO GET APPROVAL MOVED TO TODAY FROM LAST WEEK. WILL CALL BACK IF ABLE TO GET COMPLETED.
--- NOTE | 2019-10-14 17:14 | NUR ---
PROGRESS NOTE DR. ADRIEL khan no new issue SUBJECTIVE: The patient is still requiring oxygen. He has been decreased to a nasal cannula with 2 liters. doing well weak still no new problems PHYSICAL EXAMINATION: VITAL SIGNS: reviewed HEENT: Shows no facial swelling or erythema. LYMPHATIC: Shows no submandibular, cervical, or supraclavicular adenopathy. CARDIAC: Reveals regular rate and rhythm. Normal S1, S2. LUNGS: Auscultation of lungs reveals crackles at the bases. There is no wheezing. ABDOMEN: Soft, nontender. There is no rebound or guarding. EXTREMITIES: Shows no leg edema or calf tenderness. There is no cyanosis or clubbing. SKIN: Shows no rashes. RADIOLOGY: reviewed LABS: reviewed IMPRESSION: 1. Viral pneumonia and COVID-19 infection. 2. Anemia, secondary to chronic blood loss. 3. Diabetes. 4. Hypertension. PLAN: oxygen as needed supportive care no longer contagious discharge plans
[2019-10-14] MEDS ORDERED: SERTRALINE HCL50 MG PO (17:42)
[2019-10-14] MEDS: SERTRALINE HCL 50 MG TAB PO SCH (18:53)
--- NOTE | 2019-10-14 19:23 | NUR ---
PATIENT HAS REMAIN IN RECLINER- IN STABLE CONDITION WITH NO S/S OF RESPIRATORY DISTRESS. TELEMETRY APPLIED; O2 APPLIED AT 1L NC. BED ALARM APPLIED. CALL LIGHT IS WITHIN REACH OF PATIENT, PATIENT INSTRUCTED TO CALL FOR ASSISTANCE NEEDED. BEDSIDE SHIFT REPORT GIVEN TO ONCOMING NURSE.
[2019-10-14] MEDS: ALPRAZOLAM 0.25 MG TAB PO PRN (20:45)
[2019-10-14] MEDS: BENZONATATE 100 MG CAP PO PRN (20:45)
[2019-10-14] MEDS: INSULIN GLARGINE 100 UNITS/ML VIAL SQ SCH (20:45)
--- NOTE | 2019-10-14 20:45 | NUR ---
PATIENT RESTING IN RECLINER IN STABLE CONDITION, NO SIGNS OF RESPIRATORY DISTRESS NOTED. NASAL CANNULA IS INTACT AND IS PATENT AND FLOWING, RUNNING AT 1 LITER. PATIENT IS MOSTLY NEPALI SPEAKING AND DOES NOT VOICE ANY PAIN AT THIS TIME. CALL LIGHT IS WITHIN EASY REACH, WILL CONTINUE TO MONITOR.
[2019-10-15] VITALS (8 sets, daily range): BP systolic 125–144; BP diastolic 71–81
[2019-10-15 05:27] LABS: BASOPHILS # (AUTO) 0.1 (0.0-0.1); EOSINOPHILS # (AUTO) 0.2 (0.0-0.4); EOSINOPHILS % 1.8 % (0.0-6.0); HEMATOCRIT 29.6 % (38.2-49.6); HEMOGLOBIN 9.5 g/dL (14.0-18.0); LYMPHOCYTES # (AUTO) 4.2 (1.0-3.2); LYMPHOCYTES % 44.8 % (18.0-39.1); MEAN CORPUSCULAR HEMOGLOBIN 29.1 pg (28-32); MEAN CORPUSCULAR HGB CONC 32.1 g/dL (31-35); MEAN CORPUSCULAR VOLUME 90.5 fL (81-99); MONOCYTES # (AUTO) 0.9 (0.2-0.8); MONOCYTES % 9.7 % (4.4-11.3); NEUTROPHILS # (AUTO) 3.9 (2.1-6.9); NEUTROPHILS % 42.2 % (38.7-80.0); PLATELET COUNT 279 x10e3/uL (140-360); RED BLOOD COUNT 3.27 x10e6/uL (4.3-5.7); RED CELL DISTRIBUTION WIDTH 15.3 % (11.7-14.4)
[2019-10-15] MEDS: BENZONATATE 100 MG CAP PO PRN ×2 (05:33→21:50)
[2019-10-15 05:49] LABS: BLOOD UREA NITROGEN 14 mg/dL (7-26); BUN/CREATININE RATIO 13 (6-25); CALCIUM 8.5 mg/dL (8.4-10.2); CARBON DIOXIDE 30 mmol/L (22-29); CHLORIDE 102 mmol/L (98-107); EST GLOMERULAR FILTRATION RATE > 60 ML/MIN (60-); GLUCOSE 95 mg/dL (74-118); SODIUM 140 mmol/L (136-145)
--- NOTE | 2019-10-15 07:25 | NUR ---
PATIENT IS AWAKE, ALERT, AND IN STABLE CONDITION WITH NO S/S OF RESPIRATORY DISTRESS. NO PAIN VOICED. TELEMETRY APPLIED. 02 APPLIED AT 1L NC. CALL LIGHT IS WITHIN REACH OF PATIENT, PATIENT INSTRUCTED TO CALL FOR ASSISTANCE NEEDED.
[2019-10-15] MEDS: INSULIN LISPRO 100 UNIT/1 ML 3ML VIAL SQ SCH ×4 (07:30→21:50)
[2019-10-15] MEDS: SERTRALINE HCL 50 MG TAB PO SCH (08:25)
[2019-10-15] MEDS: PANTOPRAZOLE 40 MG 10ML VIAL IV SCH (08:25)
[2019-10-15] MEDS: MUPIROCIN 2% OINT 22 GM TUBE TOP SCH ×2 (08:25→16:05)
--- NOTE | 2019-10-15 09:18 | NUR ---
CONTACTED FACILITY, SINCE LOST AUTH WHEN PT WAS NOT STABLE HAD TO RESTART, INSURANCE CONFIRMED RECEIPT OF CLINICALS TO RESTART AUTH YESTERDAY AND IT IS STILL UNDER REVIEW.
[2019-10-15] MEDS: FUROSEMIDE 40 MG TAB PO SCH (10:03)
[2019-10-15] MEDS: POTASSIUM CHLORIDE 10MEQ EA PO SCH (10:03)
[2019-10-15] MEDS: MAGNESIUM HYDROXIDE 30 ML UDC PO PRN (10:35)
[2019-10-15] MEDS: SUCRALFATE 1 GM/10 ML SUSP PO SCH ×3 (11:15→21:50)
--- NOTE | 2019-10-15 12:05 | NUR ---
INTERMEDIATE FACILITY DISCHARGE INFORMATION PATIENT HAS BEEN ACCEPTED TO: NAME: [facility] ADDRESS:[id number] [facility] ACCEPTING ELECTRONICS MECHANIC: ALISON SMILEY ACCEPTING MD: POP LEWIS ROOM:313A NURSE CALL REPORT TO: [phone] IMM SIGNED AND OBTAINED (if applicable): IMM THE FOLLOWING DOCUMENTS MUST ACCOMPANY PATIENT FOR TRANSFER: COPIED CHART: PACKET
--- NOTE | 2019-10-15 12:12 | NUR ---
CALLED CALEB ALVARES [phone] LET KNOW ABOUT MEDICARE LETTER IMM WILL FILE IN CHART AND LET KNOW ACCEPTED TO FACILITY.
--- NOTE | 2019-10-15 15:21 | NUR ---
REPORT CALLED TO [facility]- SPOKE WITH LORRI CHILDRESS AT 1514. PATIENT GOING TO ROOM 313A. AMBULANCE CALLED AND AWAITING FOR THEM TO ARRIVE.
[2019-10-15] MEDS: PANTOPRAZOLE SOD 40 MG TABEC PO SCH (16:05)
--- NOTE | 2019-10-15 17:50 | NUR ---
PICC LINE REMOVED WITH TIP INTACT. PATIENT'S PERSONAL BELONGING PLACED IN PATIENT PROPERTY BAGS.
--- NOTE | 2019-10-15 18:48 | NUR ---
UPON WAITING FOR AMBULANCE ARRIVAL, THE PATIENT HAD A LARGE BOWEL MOVEMENT WITH A LARGE AMOUNT OF RED BRIGHT BLOOD. CALLED AND SPOKE WITH DR. MATAMOROS- RECEIVED ORDERS FOR H/H NOW AND FOR TOMORROW MORNING. ORDER TO DC DISCHARGE AND NOTIFY DR. FAULKNER. CALL PLACED OUT TO DR. FAULKNER- AWAITING CALLBACK.
[2019-10-15 19:01] LABS: HEMATOCRIT 33.8 % (38.2-49.6); HEMOGLOBIN 10.7 g/dL (14.0-18.0)
--- NOTE | 2019-10-15 19:22 | NUR ---
PATIENT IS IN STABLE CONDITION WITH NO S/S OF RESPIRATORY DISTRESS- NO PAIN VOICED. TELEMETRY APPLIED. PATIENT SITTING UP IN THE RECLINER. CALL LIGHT IS WITHIN REACH, PATIENT INSTRUCTED TO CALL FOR ASSISTANCE NEEDED. BEDSIDE SHIFT REPORT GIVEN TO ONCOMING NURSE.
--- NOTE | 2019-10-15 19:36 | NUR ---
CALL PLACED OUT TO DR. Suhail FAULKNER REGARDING THE PATIENT'S LARGE, BRIGHT, BLOODY, BOWEL MOVEMENT- AWAITING CALLBACK. NIGHT NURSE INFORMED OF CALL BEING PLACED.
[2019-10-15] MEDS: INSULIN GLARGINE 100 UNITS/ML VIAL SQ SCH (21:50)
[2019-10-15] MEDS: ALPRAZOLAM 0.25 MG TAB PO PRN (21:50)
--- NOTE | 2019-10-15 21:50 | NUR ---
PATIENT RESTING IN RECLINER IN STABLE CONDITION, NO SIGNS OF RESPIRATORY DISTRESS NOTED. NASAL CANNULA IS INTACT AND IS PATENT AND FLOWING, RUNNING AT 1 LITER. PATIENT DOES NOT VOICE ANY PAIN AT THIS TIME. CALL LIGHT IS WITHIN EASY REACH, WILL CONTINUE TO MONITOR.
--- NOTE | 2019-10-15 22:40 | NUR ---
PATIENT SUCCESSFULLY TRANSFERRED SAFELY FROM RECLINER TO BED. PATIENT NOW RESTING COMFORTABLY. BED IS IN LOWEST POSITION, BOTH SIDE RAILS ARE UP, CALL LIGHT IS WITHIN EASY REACH, WILL CONTINUE TO MONITOR.
[2019-10-16] VITALS: BP 130/75
[2019-10-16 04:00] VITALS: BP 129/70
[2019-10-16 05:46] LABS: HEMATOCRIT 31.6 % (38.2-49.6)
[2019-10-16 07:43] VITALS: BP 129/70
[2019-10-16] MEDS: INSULIN LISPRO 100 UNIT/1 ML 3ML VIAL SQ SCH ×2 (08:00→12:46)
[2019-10-16 08:24] VITALS: BP 121/84
[2019-10-16] MEDS: SUCRALFATE 1 GM/10 ML SUSP PO SCH ×2 (08:55→12:44)
[2019-10-16] MEDS: PANTOPRAZOLE SOD 40 MG TABEC PO SCH (08:55)
[2019-10-16] MEDS: SERTRALINE HCL 50 MG TAB PO SCH (08:56)
[2019-10-16] MEDS: FUROSEMIDE 40 MG TAB PO SCH (08:56)
[2019-10-16] MEDS: POTASSIUM CHLORIDE 10MEQ EA PO SCH (08:56)
[2019-10-16] MEDS ORDERED: HYDROCORTISONE ACETATE 25 MG/SUPP.RECT SUPP RC SCH (09:00)
[2019-10-16] MEDS: MUPIROCIN 2% OINT 22 GM TUBE TOP SCH (09:00)
--- NOTE | 2019-10-16 11:44 | NUR ---
Report called to LORRI Briggs at [facility]. Patient will be going to room 313A.
[2019-10-16 12:41] VITALS: BP 121/79
--- NOTE | 2019-10-16 13:00 | NUR ---
Patient left the floor via EMS to be transferred to [place]
--- NOTE | 2019-10-16 22:15 | Discharge Summary ---
CONSULTANTS: 1. Dr. Ruth Mott. 2. Dr. Barrett Martinez. 3. Dr. Licha Beach. 4. Dr. Efrain Palomares. FINAL DIAGNOSES: 1. Coronavirus disease-2019 infection associated with pneumonia associated with respiratory failure. 2. Superimposed bacterial pneumonia, resolved. 3. Status post respiratory failure secondary to the above. 4. Ufhjj-rp-rssaoyj gastrointestinal bleed secondary to internal hemorrhoids. 5. Status post acute kidney injury secondary to coronavirus disease-2019 infection. 6. Ggqnxakf-cj-osewqu medical debility, improving. 7. Oxygen dependency secondary to coronavirus disease-2019 infection. 8. Baseline hypertension. 9. Diabetes type 2. 10. Dyslipidemia. 11. Gout. 12. Status post iron infusion and multiple blood transfusion. SUMMARY: The patient is a 74-year-old male, admitted to the hospital for COVID-19 infection. The patient was with extensive chronic medical problems, stable prior to his COVID-19 infection. The patient went from oxygen support to respiratory failure in light of antibiotics and steroids and COVID-19 protocol treatment. He did receive remdesivir as well. The patient had a long hospitalization off and on due to his respiratory problem. He did improve after a week of treatment in the medical floor and then decompensated with bacterial infection. The patient ended up back to the COVID unit for high-flow oxygen support. The patient did better, improved after blood transfusion. He gets multiple blood transfusions. His hemoglobin and hematocrit now are 10 and 31.6 respectively. The patient seemed to be doing much better. He is on nasal cannula 2 L/minute. His acute renal failure has now resolved. His blood work, BUN and creatinine of 14 and 1.1 respectively. Sodium is 140, potassium 4, chloride 102, bicarb 30, and sugar is 95. He is on insulin treatment for his diabetes. The patient is overall doing much better, although with medical debility due to prolonged hospitalization. He is getting physical therapy and ambulatory. He still remains with oxygen support. He did have multiple rectal bleed due to his internal hemorrhoid, which was previously noted. His anemia was worsened after the blood thinner was given, but that has been discontinued. His hemoglobin and hematocrit now are stabilized. The patient is stable. He will be discharged to skilled facility. Medication reconciliation is done. He will get hydrocortisone suppository 25 mg, suppository now today and then further next 7 days twice a day. He will also continue with his current medications. Medication reconciliation is done. He will be transferred to skilled facility with oxygen. He will go to [facility] for skilled care. The patient is otherwise stable. In light of his prolonged hospitalization, he was stable on the treatment for COVID-19 pneumonia with respiratory failure with complication of bacterial infection, acute renal failure, resolved acute blood loss anemia, much improved and overall his condition is improving for discharge from the hospital. He will go to skilled facility. Continue with monitoring and continuing on his recovery of the COVID-19 infection. MD HELEN Juan/HOWARD /[id number]
== END 2019-10-16 13:02 | DRG 177 ==
LOC: ER 12:04 → ERHOLD 12:11 → IMCU 18:34 → COVIDICU 09-11 23:00 → MED/SURG3 09-26 23:06 → COVIDICU 09-29 23:50 → IMCU 10-03 00:54 → MED/SURG2 10-12 15:39
PROVIDERS: ADMIT Internal Medicine; ATTEND Internal Medicine
PROC: 30233N1 Transfusion of Nonautologous Red Blood Cells into Peripheral Vein, Percutaneous Approach (ICD-10-PCS; 2019-09-24)
PROC: 02HV33Z Insertion of Infusion Device into Superior Vena Cava, Percutaneous Approach (ICD-10-PCS; principal; 2019-09-29)
DX: U07.1 COVID-19 (principal); J96.00 Acute respiratory failure, unspecified whether with hypoxia or hypercapnia; J15.9 Unspecified bacterial pneumonia; N17.0 Acute kidney failure with tubular necrosis; E87.2 Acidosis; K62.5 Hemorrhage of anus and rectum; D62 Acute posthemorrhagic anemia; Z99.81 Dependence on supplemental oxygen; M10.9 Gout, unspecified; K64.8 Other hemorrhoids; E11.51 Type 2 diabetes mellitus with diabetic peripheral angiopathy without gangrene; Z79.4 Long term (current) use of insulin; E66.9 Obesity, unspecified; Z68.30 Body mass index [BMI] 30.0-30.9, adult; E11.319 Type 2 diabetes mellitus with unspecified diabetic retinopathy without macular edema; R13.10 Dysphagia, unspecified; D69.6 Thrombocytopenia, unspecified; E87.8 Other disorders of electrolyte and fluid balance, not elsewhere classified; E11.40 Type 2 diabetes mellitus with diabetic neuropathy, unspecified; E11.22 Type 2 diabetes mellitus with diabetic chronic kidney disease; I12.9 Hypertensive chronic kidney disease with stage 1 through stage 4 chronic kidney disease, or unspecified chronic kidney disease; N18.9 Chronic kidney disease, unspecified
CPT/HCPCS: 36415; 36569; 36600; 71045; 71260; 80048; 80053; 80061; 80202; 81001; 82550; 82553; 82607; 82728; 82746; 82805; 82948; 83540; 83605; 83735; 83880; 84100; 84466; 84484; 85014; 85018; 85025; 85045; 85610; 85730; 86850; 86900; 86920; 87040; 87086; 93005; 93306; 96360; 96372; 97139; 99285; J0360; J0456; J0610; J0696; J1100; J1650; J1756; J1815; J1817; J1940; J2001; J2405; J3370; J3420; J3430; J3480; J7030; J7040; J7050; J7121; J7799; P9016; P9047; Q9967; U0002

== ENCOUNTER 2022-01-25 07:26 | Emergency (ER) | payer MEDICARE, OTHER ==
[~2022-01-25] VITALS: Ht 170.2 cm; Wt 88.5 kg
[~2022-01-25 07:26] MED LIST: ALLOPURINOL100 MG PO; ASPIR 8181 MG PO; ATORVASTATIN CA10 MG PO; FINASTERIDE5 MG PO; GABAPENTIN300 MG PO; GLIMEPIRIDE2 MG PO; HYDROXYCHLOROQ200 MG PO; LOSARTAN POTAS100 MG PO; OMEPRAZOLE20 MG PO; PIOGLITAZONE HC45 MG PO; SERTRALINE HCL50 MG PO
[2022-01-25] MEDS ORDERED: ONDANSETRON HCL INJ 2MG/ML 2ML 2 MG/ML VIAL IV STA (07:38)
[2022-01-25] MEDS ORDERED: SODIUM CHLORIDE 0.9% 1000ML 1,000 ML IV ONE (07:45)
[2022-01-25 07:50] LABS: BASOPHILS % 0.5 % (0.0-1.0); EOSINOPHILS # (AUTO) 0.2 (0.0-0.4); EOSINOPHILS % 1.9 % (0.0-6.0); HEMOGLOBIN 12.7 g/dL (14.0-18.0); LYMPHOCYTES # (AUTO) 3.3 (1.0-3.2); LYMPHOCYTES % 40.8 % (18.0-39.1); MEAN CORPUSCULAR HEMOGLOBIN 30.8 pg (28-32); MEAN CORPUSCULAR HGB CONC 31.8 g/dL (31-35); MEAN CORPUSCULAR VOLUME 97.1 fL (81-99); MONOCYTES # (AUTO) 0.3 (0.2-0.8); NEUTROPHILS # (AUTO) 4.2 (2.1-6.9); NEUTROPHILS % 52.4 % (38.7-80.0); PLATELET COUNT 252 x10e3/uL (140-360); RED BLOOD COUNT 4.12 x10e6/uL (4.3-5.7)
[2022-01-25 08:13] LABS: ALBUMIN/GLOBULIN RATIO 1.1 (0.8-2.0); ANION GAP 15.3 mmol/L (8-16); CALCIUM 8.7 mg/dL (8.4-10.2); CREATININE, SERUM 1.83 mg/dL (0.72-1.25); POTASSIUM 4.3 mmol/L (3.5-5.1)
[2022-01-25 08:14] LABS: MAGNESIUM 1.7 MG/DL (1.3-2.1)
[2022-01-25 08:20] LABS: CREATINE KINASE MB 2.1 ng/mL (0-5.0)
[2022-01-25 08:35] LABS: AMYLASE 88 U/L (25-125); LIPASE 34 U/L (8-78)
[2022-01-25 08:36] LABS: CLARITY,URINE CLEAR (CLEAR); COLOR,URINE YELLOW (YELLOW); KETONES,URINE NEGATIVE (NEGATIVE); LEUKOCYTE ESTERASE ,URINE NEGATIVE (NEGATIVE); NITRITE,URINE NEGATIVE (NEGATIVE); PROTEIN,URINE DIPSTICK NEGATIVE (NEGATIVE)
[2022-01-25 08:37] LABS: BACTERIA,URINE FEW /HPF; EPITHELIAL CELLS,URINE FEW /LPF; RBC,URINE 0-5 /HPF (0-5); URINE UROBILINOGEN 0.2 mg/dL (0.2 - 1); WBC,URINE (MAN) 0-5 /HPF (0-5)
[2022-01-25] MEDS ORDERED: IOPAMIDOL 370 MG/ML 100 ML INFUS..BTL INJ ONE (10:27)
[2022-01-25] MEDS ORDERED: PROTONIX40 MG PO (11:05)
== END 2022-01-25 11:20 | disposition home or self-care (01) ==
LOC: ER 07:30
DX: K44.9 Diaphragmatic hernia without obstruction or gangrene (principal); N28.9 Disorder of kidney and ureter, unspecified; I10 Essential (primary) hypertension; E11.40 Type 2 diabetes mellitus with diabetic neuropathy, unspecified; K21.9 Gastro-esophageal reflux disease without esophagitis; E78.5 Hyperlipidemia, unspecified; M10.9 Gout, unspecified; Z20.822 Contact with and (suspected) exposure to COVID-19
CPT/HCPCS: 0223U; 36415; 74177; 80053; 81001; 82150; 82550; 82553; 83690; 83735; 84484; 85025; 93005; 99284; C9113; J2405; J7030; Q9967

== ENCOUNTER → 2022-07-14 | Day surgery (SDC) | payer MEDICARE ==
[2022-07-08 13:06] LABS: BASOPHILS % 0.5 % (0.0-1.0); EOSINOPHILS # (AUTO) 0.1 (0.0-0.4); EOSINOPHILS % 1.7 % (0.0-6.0); HEMATOCRIT 37.1 % (38.2-49.6); HEMOGLOBIN 12.2 g/dL (14.0-18.0); LYMPHOCYTES # (AUTO) 3.2 (1.0-3.2); LYMPHOCYTES % 39.2 % (18.0-39.1); MEAN CORPUSCULAR HEMOGLOBIN 31.8 pg (28-32); MEAN CORPUSCULAR HGB CONC 32.9 g/dL (31-35); MEAN CORPUSCULAR VOLUME 96.6 fL (81-99); MONOCYTES # (AUTO) 0.5 (0.2-0.8); MONOCYTES % 6.1 % (4.4-11.3); NEUTROPHILS # (AUTO) 4.2 (2.1-6.9); NEUTROPHILS % 52.3 % (38.7-80.0); PLATELET COUNT 176 x10e3/uL (140-360); RED BLOOD COUNT 3.84 x10e6/uL (4.3-5.7)
[~2022-07-14] MED LIST changes: +ASPIRIN EC81 MG PO; +FENTANYL CITRATE/PF 100MCG/2 ML INJ ONE; +FEROSUL325 MG PO; +LACTATED RINGER'S 1,000 ML ONE; +LEVOTHYROXINE50 MCG PO; +LIDOCAINE HCL 2% LOCAL INJ 5 ML SDV VIAL INJ ONE; +MAGNESIUM OXID400 MG PO; +NEURONTIN300 MG PO; +PROPOFOL IV EMULSION 10 MG/ML 20 ML VIAL ONE; +PROTONIX40 MG PO; +SERTRALINE HCL100 MG PO; +TRIAMTERENE-HCTZ1 EA PO
[2022-07-14 08:25] VITALS: BP 115/68
== END | disposition home or self-care (01) ==
LOC: OR 06:05
PROVIDERS: ATTEND Internal Medicine Gastroenterology
DX: K29.50 Unspecified chronic gastritis without bleeding (principal); K44.9 Diaphragmatic hernia without obstruction or gangrene; Z01.810 Encounter for preprocedural cardiovascular examination; Z01.812 Encounter for preprocedural laboratory examination; Z79.82 Long term (current) use of aspirin; Z79.84 Long term (current) use of oral hypoglycemic drugs; Z79.899 Other long term (current) drug therapy; Z68.34 Body mass index [BMI] 34.0-34.9, adult
CPT/HCPCS: 36415 ×2; 43239; 82948; 85025; 88305; 88342; 93005; J2001; J2704; J3010; J7121; 88304; 88312